=== PATIENT | male | born 1935 | race Caucasian/White ===

== ENCOUNTER 2024-03-11 16:58 | Inpatient (IN) ==
--- NOTE | 2024-03-11 18:13 | XRay Report ---
XR chest 1V portable CLINICAL HISTORY: Dyspnea COMPARISON STUDY: Chest radiograph November 13, 2007. FINDINGS: There is no pneumothorax or pleural effusion. There is slight asymmetric increased attenuat ion of the right lung. Left basilar interstitial thickening is present. Cardiomediastinal silhouette is unremarkable. No definite evidence for pulmonary edema. IMPRESSION: Slight asymmetric increased attenuation of the right lung. This may reflect pneumonia, a rtifact or asymmetric pulmonary. A layering pleural effusion could appear similar but is considered l ess likely. Radiographic follow-up to ensure resolution is recommended. ACT 112: Negative or not required by law. Electronically signed by: Andrea Green M.D. 03/11/2024 6:12 PM
[2024-03-11] MEDS: ACETAMINOPHEN 500 MG TAB PO STA (18:22)
[2024-03-11 18:35] LABS: Basophils # (auto) 0.05 K/uL (0.00-0.20); Basophils % (auto) 0.3 %; Eosinophils # (auto) 0.23 K/uL (0.00-0.50); Eosinophils % (auto) 1.3 %; Hematocrit (blood only) 31.1 % (42.0-52.0); Hemoglobin 10.9 g/dl (14.0-18.0); Immature Granulocytes % (auto) 0.6 %; Lymphocytes # (auto) 1.03 K/uL (1.20-3.40); Mean Corpuscular Hemoglobin 33.6 pg (25.0-34.0); Mean Platelet Volume 9.8 fL (9.4-12.4); Monocytes # (auto) 0.92 K/uL (0.11-0.59); Monocytes % (auto) 5.3 %; Neutrophils % (auto) 86.5 %; Platelet Count 202 K/uL (130-400); RDW Coefficient of Variation 13.3 % (11.5-14.5); RDW Standard Deviation 47.3 fL (36.4-46.3); Red Blood Count 3.24 M/uL (4.70-6.10); White Blood Count 17.23 K/ul (4.8-10.8)
[2024-03-11 18:52] LABS: Alanine Aminotransferase 20 U/L (7-52); Albumin Level 3.8 gm/dl (3.4-5.0); Alkaline Phosphatase 61 U/L (34-104); Anion Gap 12 (3-11); Aspartate Aminotransferase 51 U/L (13-39); BUN Creatinine Ratio 19.2 (10-20); Bilirubin,Total 0.7 mg/dl (0.2-1.0); Blood Urea Nitrogen 35 mg/dl (6-23); Calcium 8.3 mg/dl (8.6-10.3); Carbon Dioxide 18 mmol/L (21-32); Chloride 100 mmol/L (98-107); Est GFR (African American) 37.9 ml/min; Est GFR (Non-African American) 32.7 ml/min; Globulin 3.7 gm/dl (2.5-4.0); Glucose 141 mg/dl (70-99(Fasting)); Potassium 4.5 mmol/L (3.5-5.1); Sodium 130 mmol/L (136-145); Total Protein 7.5 gm/dl (6.0-8.3)
[2024-03-11 18:58] LABS: Troponin I High Sensitivity 30.5 pg/ml (0-20)
[2024-03-11 19:27] LABS: Adenovirus PCR Not Detected (NotDetected); Bordetella parapertussis PCR Not Detected (NotDetected); Bordetella pertussis PCR Not Detected (NotDetected); Chlamydia pneumoniae PCR Not Detected (NotDetected); Coronavirus 229E PCR Not Detected (NotDetected); Coronavirus CoV-2 (COVID19)PCR Not Detected (NotDetected); Coronavirus HKU1 PCR Not Detected (NotDetected); Coronavirus NL63 PCR Not Detected (NotDetected); Coronavirus OC43PCR Not Detected (NotDetected); Human Metapneumovirus PCR Not Detected (NotDetected); Influenza A PCR Not Detected (NotDetected); Influenza B PCR Not Detected (NotDetected); Mycoplasma pneumoniae PCR Not Detected (NotDetected); Parainfluenza Virus 1 PCR Not Detected (NotDetected); Parainfluenza Virus 2 PCR Not Detected (NotDetected); Parainfluenza Virus 3 PCR Not Detected (NotDetected); Parainfluenza Virus 4 PCR Not Detected (NotDetected); Respiratory Syncytial VirusPCR Not Detected (NotDetected); Rhinovirus/Enterovirus PCR Not Detected (NotDetected)
[2024-03-11] MEDS: cefTRIAXone SODIUM 2,000 MG/50 ML BAG IV STA (20:51)
[2024-03-11] MEDS: SODIUM CHLORIDE 0.9% 500 ML IV SCH (20:52)
--- NOTE | 2024-03-11 21:47 | Emergency Department Note ---
Impression & Plan Pneumonia, Hypoxia, LASHON (acute kidney injury), Leukocytosis, Elevated troponin ED Provider Note NAME: HENNA DON Jr AGE: 88 SEX: M : 1935 ARRIVES VIA: Walk-In INFORMANT: Patient ED PROVIDER(S): Howard Randolph MD CHIEF COMPLAINT: Shortness of breath, cough, weakness. PLAN: Disposition: Admit MEDICAL DECISION MAKING: The patient is a pleasant 88-year-old gentleman with a past medical history of GERD, hypertension who presents to the emergency department via walk-in accompanied by his son who happened to be visiting for the March 12 hol for evaluation of ongoing illness for the past 2 weeks with cough congestion worsening today with generalized malaise and feverishness/shaking tonight prior to arrival. Patient reports he had cough and congestion began 2 weeks ago and was seen at urgent care where he was treated with a course of steroids which he completed. However, after having no improvement he returned to urgent care and was given an Advair inhaler. He denies being treated with antibiotics. He denies feeling feverishness until today. He reports he has had diarrhea over the past couple of days. He denies any urinary symptoms. He reports shortness of breath with minimal exertion but denies chest pain or abdominal pain. He is not on oxygen at home. Of note, the patient did arrive to emergency department during time of high volume, acuity and prolonged emergency department waiting times. Critical pathways initiated from triage. On my evaluation the patient is fatigued appearing but no distress, febrile to 38.0 with blood pressure 150s/60s with O2 saturation 88% on room air improving to low-mid 90s on 2 L nasal cannula. He appears clinically dry. He has wheezing rhonchi bilateral lower lung goldberg with normal respiratory effort. EKG without overt acute ischemia. CXR demonstrates asymmetric increased attenuation of the right lung with left basilar interstitial thickening. No definite pulmonary edema is seen. Findings are suspicious for pneumonia given the clinical context. WBC 17.2 K with neutrophilia but no left shift, nonspecific and may reflect component of active pneumonia but also recent steroid course. H/H 10.8/31.1 without recent for comparison. Platelets within normal limits. Chemistry demonstrates mild metabolic acidosis bicarbonate 18 anion gap of 12. Lactic acid is 1.5, within normal limits. Creatinine is 1.8 with BUN of 35 without prior for comparison however patient denies history of CKD. AST is mildly elevated at 51, nonspecific. LFTs otherwise normal. Initial high-sensitivity troponin 30.5 with delta 2-hour high-sensitivity troponin 34, essentially unchanged. Procalcitonin is elevated at 10.4 consistent with suspicion for bacterial infection/pneumonia. UA without convincing evidence of infection. Respiratory BioFire was negative. Blood culture was obtained and empiric treatment initiated for CAP with ceftriaxone and doxycycline. Additional treatment provided with DuoNeb, guaifenesin and flutter valve ordered. IV fluid hydration provided with caution with 500 cc administered initially and subsequent 1 L maintenance fluids ordered, given acute kidney injury and so 30 cc/kg was deferred. Given patient's hypoxia, leukocytosis and acute kidney injury patient and family bedside agree with plan for admission. Given patient denies chest pain and no significant tachycardia, though may be blunted from home propranolol, suspect PE is less likely at this time. [facility] will [facility] the patient for admission. Further management per admitting team. Triage Nursing notes reviewed and agree them. Prior/external medical records reviewed Vital Signs: reviewed Differential diagnosis: Reactive airway disease, pneumonia, pneumothorax, COPD, CHF, infections, cardiac ischemia, pulmonary embolism, musculoskeletal, gastrointestinal, as well as other pathologies. ER treatment provided: See below. Diagnostics interpreted by me: ECG: Normal sinus rhythm, 84 bpm, no ectopy, no overt ST elevation or depression, QTc 432, QRS 82. Cardiac Monitoring: An order for continuous cardiac monitoring was placed and demonstrated Normal sinus rhythm, 84 bpm, no ectopy. Laboratory studies: See below Imaging studies: See below Consultation(s): [facility] who will evaluate the patient for admission. HPI: The patient is a pleasant 88-year-old gentleman with a past medical history of GERD, hypertension who presents to the emergency department via walk-in accompanied by his son who happened to be visiting for the March 12 hol weekend for evaluation of ongoing illness for the past 2 weeks with cough congestion worsening today with generalized malaise and feverishness/shaking tonight prior to arrival. Patient reports he had cough and congestion began 2 weeks ago and was seen at urgent care where he was treated with a course of steroids which he completed. However, after having no improvement he returned to urgent care and was given an Advair inhaler. He denies being treated with antibiotics. He denies feeling feverishness until today. He reports he has had diarrhea over the past couple of days. He denies any urinary symptoms. He reports shortness of breath with minimal exertion but denies chest pain or abdominal pain. He is not on oxygen at home. ROS: See above HPI for pertinent positives & negatives. A total of 10 systems reviewed and were otherwise negative. VITALS:See Below PHYSICAL EXAMINATION: GENERAL: Awake, alert, fatigued-appearing, in no distress HENT: Normocephalic, atraumatic. Oropharynx with dry mucous membranes and otherwise unremarkable. EYES: Normal conjunctiva. Sclera non-icteric. NECK: Supple. No nuchal rigidity. FROM. No JVD. RESPIRATORY: Wheezes and rhonchi bilateral lung goldberg with normal respiratory effort CARDIAC: Regular rate, normal rhythm. Extremities warm and well perfused. Pulses equal. ABDOMEN: Soft, non-distended. No tenderness to palpation. No rebound or guarding. No masses. MUSCULOSKELETAL: Chest examination reveals no tenderness. The back is symmetrical on inspection without obvious abnormality. There is no CVA tenderness to palpation. No joint edema. LOWER EXTREMITIES: Calves are equal size bilaterally and non-tender. No edema. No discoloration. NEURO: No focal sensory or motor deficits noted. SKIN: No rash or jaundice noted. Howard Randolph MD Past Med/Surg History Problem List (Updated 03/12/24 @ 01:00 by Howard Randolph MD) Elevated troponin (Acute) Leukocytosis (Acute) LASHON (acute kidney injury) (Acute) Hypoxia (Acute) Pneumonia (Acute) Social History Smoking Status: Never smoker Preferred Language: Scottish Feels Safe at Home: Yes Allergies Allergies Allergy/AdvReac Type Severity Reaction Status Date / Time No Known Allergies Allergy Unknown Verified 03/11/24 21:46 Home Meds Home Medications Medication Instructions Recorded Confirmed acetaminophen 500 mg tablet 1,000 mg PO DIRECTED PRN Pain 03/11/24 03/11/24 (Tylenol Extra Strength) fluticasone 113 mcg-salmeterol 14 1 inh inhalation BID 03/11/24 03/11/24 mcg/actuation breath activated powdr losartan 25 mg tablet 25 mg PO DAILY 03/11/24 03/11/24 omeprazole 20 mg capsule,delayed 20 mg PO DAILY 03/11/24 03/11/24 release propranolol 80 mg capsule,24 80 mg PO DAILY 03/11/24 03/11/24 hr,extended release Results & Data (ED) Vital Signs Vital Signs - 24 hr 03/11/24 17:29 03/11/24 18:15 03/11/24 19:50 Temperature 38 C H Temperature Source Oral Pulse Rate 86 59 L Pulse Rate [Right Radial] Respiratory Rate 22 Respiratory Effort / Characteristics Non-Labored Respiratory Depth Normal Respiratory Pattern Blood Pressure 155/67 H Blood Pressure [Left Arm] Blood Pressure Mean 96 Blood Pressure Mean [Left Arm] Blood Pressure Position [Left Arm] Pulse Oximetry 88 L 96 Oxygen Delivery Method Room Air Nasal Cannula Oxygen Flow Rate 2 Sepsis Recent Fever Within 48 Hours Yes Sepsis New/Unexplained Change in Mental Status No Sepsis Action Taken by Nursing No Action Required 03/11/24 20:11 03/11/24 20:57 03/11/24 21:10 Temperature 37.1 C Temperature Source Oral Pulse Rate Pulse Rate [Right Radial] 61 Respiratory Rate 20 20 Respiratory Effort / Characteristics Non-Labored Respiratory Depth Normal Normal Respiratory Pattern Regular Blood Pressure Blood Pressure [Left Arm] 135/66 Blood Pressure Mean Blood Pressure Mean [Left Arm] 89 Blood Pressure Position [Left Arm] Sitting Pulse Oximetry 94 94 Oxygen Delivery Method Nasal Cannula Room Air Oxygen Flow Rate 2 Sepsis Recent Fever Within 48 Hours Sepsis New/Unexplained Change in Mental Status Sepsis Action Taken by Nursing 03/11/24 21:20 03/11/24 21:28 03/11/24 23:41 Temperature Temperature Source Pulse Rate 52 L Pulse Rate [Right Radial] Respiratory Rate Respiratory Effort / Characteristics Respiratory Depth Respiratory Pattern Blood Pressure Blood Pressure [Left Arm] Blood Pressure Mean Blood Pressure Mean [Left Arm] Blood Pressure Position [Left Arm] Pulse Oximetry 88 L 96 Oxygen Delivery Method Room Air Nasal Cannula Oxygen Flow Rate 2 Sepsis Recent Fever Within 48 Hours Sepsis New/Unexplained Change in Mental Status Sepsis Action Taken by Nursing Laboratory Data Attestation: I reviewed the patient's lab results. 03/11/24 18:10 03/11/24 23:20 Lab Results 03/11/24 03/11/24 03/11/24 Range/Units 18:10 18:30 19:54 WBC 17.23 H (4.8-10.8) K/ul RBC 3.24 L (4.70-6.10) M/uL Hgb 10.9 L (14.0-18.0) g/dl Hct 31.1 L (42.0-52.0) % MCV 96.0 (80.0-100.0) fL MCH 33.6 (25.0-34.0) pg MCHC 35.0 (32.0-36.0) g/dL RDW Std Deviation 47.3 H (36.4-46.3) fL RDW Coeff of Karl 13.3 (11.5-14.5) % Plt Count 202 (130-400) K/uL MPV 9.8 (9.4-12.4) fL Immature Gran % (Auto) 0.6 % Neut % (Auto) 86.5 % Lymph % (Auto) 6.0 % [place] % (Auto) 5.3 % Eos % (Auto) 1.3 % Baso % (Auto) 0.3 % Reticulocyte % (Auto) 1.16 (0.50-2.00) % Neut # (Auto) 14.90 H (1.40-6.50) K/uL Lymph # (Auto) 1.03 L (1.20-3.40) K/uL [place] # (Auto) 0.92 H (0.11-0.59) K/uL Eos # (Auto) 0.23 (0.00-0.50) K/uL Baso # (Auto) 0.05 (0.00-0.20) K/uL Reticulocyte # 0.040 (0.020-0.100) 10^6/uL Immature Gran # (Auto) 0.10 (0.01-0.20) K/uL APTT (21-31) Seconds PTT Ratio VBG pH (7.36-7.41) VBG pCO2 (38-50) mmHg VBG pO2 mmHg VBG HCO3 mmol/L VBG O2 Saturation % VBG Base Excess mEq/L Sodium 130 L (136-145) mmol/L Potassium 4.5 (3.5-5.1) mmol/L Chloride 100 (98-107) mmol/L Carbon Dioxide 18 L (21-32) mmol/L Anion Gap 12 H (3-11) BUN 35 H (6-23) mg/dl Creatinine 1.82 H (0.6-1.4) mg/dl Est Cr Clr Drug Dosing Not Reportable Est GFR ( Amer) 37.9 ml/min Est GFR (Non-Af Amer) 32.7 ml/min BUN/Creatinine Ratio 19.2 (10-20) Glucose 141 H (70-99(Fasting)) mg/dl Osmolality (280-300) mOsm/kg Lactate 1.5 (0.4-2.0) mmol/L Calcium 8.3 L (8.6-10.3) mg/dl Magnesium (1.7-2.4) mg/dl Iron (35-175) mcg/dl Transferrin (200-360) mg/dl Ferritin (8-388) ng/ml Total Bilirubin 0.7 (0.2-1.0) mg/dl AST 51 H (13-39) U/L ALT 20 (7-52) U/L Alkaline Phosphatase 61 (34-104) U/L Troponin I High Sens 30.5 H (0-20) pg/ml Total Protein 7.5 (6.0-8.3) gm/dl Albumin 3.8 (3.4-5.0) gm/dl Globulin 3.7 (2.5-4.0) gm/dl Albumin/Globulin Ratio 1.0 (0.9-2) Vitamin B12 (180-914) pg/ml Folate (>5.38) ng/ml Procalcitonin 10.40 H (0-0.5) ng/ml TSH (0.300-4.500) uIu/ml Urine Color Urine Appearance (Clear) Urine pH (4.5-7.5) Ur Specific [place] (1.000-1.030) Urine Protein (Negative) Urine Glucose (UA) (Negative) Urine Ketones (Negative) Urine Blood (Negative) Urine Nitrite (Negative) Urine Bilirubin (Negative) Urine Urobilinogen (Negative) Ur Leukocyte Esterase (Negative) Urine WBC (Auto) (0-5) /hpf Urine RBC (Auto) (0-2) /hpf U Hyaline Cast (Auto) (0-2) /lpf U Epithel Cells (Auto) (0-2) /hpf Urine Bacteria (Auto) (None Seen) Adenovirus (PCR) Not Detected (NotDetected) B. pertussis DNA (PCR) Not Detected (NotDetected) B.parapertussis DNA PCR Not Detected (NotDetected) C. pneumoniae DNA (PCR) Not Detected (NotDetected) Coronavirus OC43 (PCR) Not Detected (NotDetected) Coronavirus HKU1 (PCR) Not Detected (NotDetected) Coronavirus 229E (PCR) Not Detected (NotDetected) SARS-CoV-2 (PCR) Not Detected (NotDetected) Coronavirus NL63 (PCR) Not Detected (NotDetected) Human Metapneumovir PCR Not Detected (NotDetected) Influenza Type A (PCR) Not Detected (NotDetected) Influenza Type B (PCR) Not Detected (NotDetected) M. pneumoniae (PCR) Not Detected (NotDetected) Parainfluenza 1 (PCR) Not Detected (NotDetected) Parainfluenza 2 (PCR) Not Detected (NotDetected) Parainfluenza 3 (PCR) Not Detected (NotDetected) Parainfluenza 4 (PCR) Not Detected (NotDetected) RSV (PCR) Not Detected (NotDetected) Entero/Rhino (PCR) Not Detected (NotDetected) 03/11/24 03/11/24 03/11/24 Range/Units 20:07 23:20 Unknown WBC (4.8-10.8) K/ul RBC (4.70-6.10) M/uL Hgb (14.0-18.0) g/dl Hct (42.0-52.0) % MCV (80.0-100.0) fL MCH (25.0-34.0) pg MCHC (32.0-36.0) g/dL RDW Std Deviation (36.4-46.3) fL RDW Coeff of Karl (11.5-14.5) % Plt Count (130-400) K/uL MPV (9.4-12.4) fL Immature Gran % (Auto) % Neut % (Auto) % Lymph % (Auto) % [place] % (Auto) % Eos % (Auto) % Baso % (Auto) % Reticulocyte % (Auto) (0.50-2.00) % Neut # (Auto) (1.40-6.50) K/uL Lymph # (Auto) (1.20-3.40) K/uL [place] # (Auto) (0.11-0.59) K/uL Eos # (Auto) (0.00-0.50) K/uL Baso # (Auto) (0.00-0.20) K/uL Reticulocyte # (0.020-0.100) 10^6/uL Immature Gran # (Auto) (0.01-0.20) K/uL APTT 29 (21-31) Seconds PTT Ratio 1.1 VBG pH 7.41 (7.36-7.41) VBG pCO2 29 L (38-50) mmHg VBG pO2 52 mmHg VBG HCO3 18 mmol/L VBG O2 Saturation 86.4 % VBG Base Excess -5.0 mEq/L Sodium 131 L (136-145) mmol/L Potassium 4.1 (3.5-5.1) mmol/L Chloride 102 (98-107) mmol/L Carbon Dioxide 19 L (21-32) mmol/L Anion Gap 10 (3-11) BUN 35 H (6-23) mg/dl Creatinine 1.84 H (0.6-1.4) mg/dl Est Cr Clr Drug Dosing Not Reportable Est GFR ( Amer) 37.4 ml/min Est GFR (Non-Af Amer) 32.2 ml/min BUN/Creatinine Ratio 19.0 (10-20) Glucose 133 H (70-99(Fasting)) mg/dl Osmolality 280 (280-300) mOsm/kg Lactate (0.4-2.0) mmol/L Calcium 8.1 L (8.6-10.3) mg/dl Magnesium 2.0 (1.7-2.4) mg/dl Iron 19 L (35-175) mcg/dl Transferrin 150 L (200-360) mg/dl Ferritin 1108.2 H (8-388) ng/ml Total Bilirubin (0.2-1.0) mg/dl AST (13-39) U/L ALT (7-52) U/L Alkaline Phosphatase (34-104) U/L Troponin I High Sens 34.0 H 26.9 H (0-20) pg/ml Total Protein (6.0-8.3) gm/dl Albumin (3.4-5.0) gm/dl Globulin (2.5-4.0) gm/dl Albumin/Globulin Ratio (0.9-2) Vitamin B12 318 (180-914) pg/ml Folate 11.56 (>5.38) ng/ml Procalcitonin (0-0.5) ng/ml TSH 1.719 (0.300-4.500) uIu/ml Urine Color Yellow Urine Appearance Cloudy A (Clear) Urine pH 6.0 (4.5-7.5) Ur Specific [place] 1.011 (1.000-1.030) Urine Protein 1+ H (Negative) Urine Glucose (UA) Negative (Negative) Urine Ketones Negative (Negative) Urine Blood Trace H (Negative) Urine Nitrite Negative (Negative) Urine Bilirubin Negative (Negative) Urine Urobilinogen Negative (Negative) Ur Leukocyte Esterase Negative (Negative) Urine WBC (Auto) 0-5 (0-5) /hpf Urine RBC (Auto) 0-2 (0-2) /hpf U Hyaline Cast (Auto) 0-2 (0-2) /lpf U Epithel Cells (Auto) 0-2 (0-2) /hpf Urine Bacteria (Auto) None Seen (None Seen) Adenovirus (PCR) (NotDetected) B. pertussis DNA (PCR) (NotDetected) B.parapertussis DNA PCR (NotDetected) C. pneumoniae DNA (PCR) (NotDetected) Coronavirus OC43 (PCR) (NotDetected) Coronavirus HKU1 (PCR) (NotDetected) Coronavirus 229E (PCR) (NotDetected) SARS-CoV-2 (PCR) (NotDetected) Coronavirus NL63 (PCR) (NotDetected) Human Metapneumovir PCR (NotDetected) Influenza Type A (PCR) (NotDetected) Influenza Type B (PCR) (NotDetected) M. pneumoniae (PCR) (NotDetected) Parainfluenza 1 (PCR) (NotDetected) Parainfluenza 2 (PCR) (NotDetected) Parainfluenza 3 (PCR) (NotDetected) Parainfluenza 4 (PCR) (NotDetected) RSV (PCR) (NotDetected) Entero/Rhino (PCR) (NotDetected) Administered Medications Discontinued Medications Acetaminophen (Acetaminophen 500 Mg Tab) 1,000 mg PO NOW STA Stop: 03/11/24 17:35 Last Admin: 03/11/24 18:22 Dose: 1,000 mg Documented By: EUFEMIA Albuterol (Albut/Ipratrop 3mg/0.5mg Neb 3 Ml Vial) 3 ml NEB NOW STA; Protocol Stop: 03/11/24 21:41 Last Admin: 03/11/24 22:33 Dose: 3 ml Documented By: ISMAEL Guaifenesin (Guaifenesin 600 Mg Tabcr) 600 mg PO NOW STA Stop: 03/11/24 21:41 Last Admin: 03/11/24 22:33 Dose: 600 mg Documented By: ISMAEL Ceftriaxone Sodium (Rocephin) 2,000 mg in 50 mls @ 100 mls/hr IV NOW STA Stop: 03/11/24 19:43 Last Infusion: 03/11/24 21:29 Dose: Infused Documented By: Admin: 03/11/24 20:51 Dose: 100 mls/hr Documented By: Sodium Chloride (Nss) 500 mls @ 125 mls/hr IV .Q4H ERVIN Stop: 04/10/24 19:29 Last Admin: 03/11/24 20:52 Dose: 125 mls/hr Documented By: Doxycycline Hyclate 100 mg/ (Dextrose) 100 mls @ 50 mls/hr IV NOW STA Stop: 03/11/24 23:39 Last Infusion: 03/12/24 00:31 Dose: Infused Documented By: Admin: 03/11/24 22:34 Dose: 50 mls/hr Documented By: ISMAEL Sodium Chloride (Nss) 1,000 mls @ 125 mls/hr IV .Q8H ERVIN Stop: 04/10/24 21:44 Last Admin: 03/12/24 00:17 Dose: Not Given Documented By: Imaging Data Radiologist's Impression: Chest X-Ray 03/11/24 17:33 XR chest 1V portable CLINICAL HISTORY: Dyspnea COMPARISON STUDY: Chest radiograph November 13, 2007. FINDINGS: There is no pneumothorax or pleural effusion. There is slight asymmetric increased attenuation of the right lung. Left basilar interstitial thickening is present. Cardiomediastinal silhouette is unremarkable. No definite evidence for pulmonary edema. IMPRESSION: Slight asymmetric increased attenuation of the right lung. This may reflect pneumonia, artifact or asymmetric pulmonary. A layering pleural effusion could appear similar but is considered less likely. Radiographic follow-up to ensure resolution is recommended. ACT 112: Negative or not required by law. Electronically signed by: Andrea Green M.D. 03/11/2024 6:12 PM Discharge Plan Visit Data Chief Complaint: Flu Like Symptoms Stated Complaint: COUGH, WEAKNESS ED Provider: Howard Randolph Discharge Problem: Pneumonia, Hypoxia, LASHON (acute kidney injury), Leukocytosis, Elevated troponin Forms Stand Alone Forms: [facility] Prescriptions Prescriptions: No Action acetaminophen [Tylenol Extra Strength] 500 mg Tablet 1,000 mg PO DIRECTED PRN (Reason: Pain) propranolol 80 mg capsule,extended release 24hr 80 mg PO DAILY losartan 25 mg tablet 25 mg PO DAILY omeprazole 20 mg capsule,delayed release(DR/EC) 20 mg PO DAILY fluticasone propion-salmeterol 113-14 mcg/actuation aerosol powdr breath activated 1 inh INHALATION BID Referrals Referrals: Amita De Luna MD [Primary Care Provider] - Discharge Problem: Pneumonia Qualifiers: Pneumonia type: due to unspecified organism Laterality: bilateral Lung location: unspecified part of lung Qualified Code(s): J18.9 - Pneumonia, unspecified organism Leukocytosis Qualifiers: Leukocytosis type: unspecified Qualified Code(s): D72.829 - Elevated white blood cell count, unspecified
[2024-03-11 22:14] LABS: Reticulocyte % 1.16 % (0.50-2.00)
[2024-03-11 22:30] LABS: Appearance Urine Cloudy (Clear); Bacteria Urine Automated None Seen (None Seen); Bilirubin Urine Negative (Negative); Blood Urine Trace (Negative); Cast Urine Automated 0-2 /lpf (0-2); Color Urine Yellow; Epithelial Cell Urine Auto 0-2 /hpf (0-2); Glucose Urine UA Negative (Negative); Ketones Urine Negative (Negative); Leukocyte Esterase Urine Negative (Negative); Nitrite Urine Negative (Negative); Protein Urine 1+ (Negative); RBC Urine Automated 0-2 /hpf (0-2); Specific Gravity Urine 1.011 (1.000-1.030); Urobilinogen Urine Negative (Negative); WBC Urine Automated 0-5 /hpf (0-5)
[2024-03-11] MEDS: ALBUT/IPRATROP 3MG/0.5MG NEB 3 ML VIAL NEB STA (22:33)
[2024-03-11] MEDS: guaiFENesin 600 MG TABCR PO STA (22:33)
[2024-03-11] MEDS: DOXYCYCLINE HYCLATE 100 MG in DEXTROSE 5% MINI-B 100 ML IV STA (22:34)
--- NOTE | 2024-03-11 23:11 | History & Physical Report ---
Date of Service March 11, 2024 Assessment & Plan (1) Severe sepsis: Plan: SIRS plus hypoxemic respiratory failure secondary to bronchopneumonia, possible aspiration Troponin elevation secondary to above hypertension, stable CRI, creatinine at baseline Acute on chronic anemia, no overt bleed, FOBT done at there was negative prediabetes, hemoglobin A1c of 5.7 last January 2024 Medical telemetry CS, Unasyn, doxycycline Nebs RTC Pulmonary consult if without improvement Aspiration precautions, BOOT AND SADDLE REPAIR PERSON eval Anemia workup, transfuse PRBC if hemoglobin less than 7 and or from symptomatic anemia PT OT eval DVT prophylaxis. Heparin subcu Full code Patient son requesting updates providers. Mr. Damaso Brown, contact #[phone]. Text document was generated using [employer] voice recognition software. It may contain grammatical or spelling errors. Kindly contact undersigned for clarification of any documentation item in question. History of Present Illness Chief Complaint: Persistent cough, worsening SOB Primary Care Provider: Amita De Luna MD History obtained from patient, family, and records. Medical history significant for hypertension, CRI (baseline creatinine 1.8), chronic anemia (baseline hemoglobin of 12), prediabetes, BPH, skin cancer as per records. 2 weeks ago, patient noted cough symptoms productive of white sputum worse on lying down. Denies choking symptoms. Not sure about sick contacts. No chest pain. 2 urgent care visits in the last 2 weeks. No pneumonia on x-ray as per patient. Outpatient COVID-19 test was negative. Patient prescribed prednisone course and inhaler on 2 separate occasions. Worsening symptoms despite compliance with new medications. No fluid retention. Denies abdominal pain, black/bloody stools, hematuria. Patient brought to ER by son visiting from [place] for evaluation. O2 sats 80s upon arrival at the ER. Ceftriaxone and doxycycline administered at the ER. 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 Allergies Allergy/AdvReac Type Severity Reaction Status Date / Time No Known Allergies Allergy Unknown Verified 03/11/24 21:46 Home Medications Medication Instructions Recorded Confirmed Type acetaminophen 500 mg tablet 1,000 mg PO DIRECTED PRN Pain 03/11/24 03/11/24 History (Tylenol Extra Strength) fluticasone 113 mcg-salmeterol 14 1 inh inhalation BID 03/11/24 03/11/24 History mcg/actuation breath activated powdr losartan 25 mg tablet 25 mg PO DAILY 03/11/24 03/11/24 History omeprazole 20 mg capsule,delayed 20 mg PO DAILY 03/11/24 03/11/24 History release propranolol 80 mg capsule,24 80 mg PO DAILY 03/11/24 03/11/24 History hr,extended release Past Med/Surg History Problem List (Updated 03/12/24 @ 10:27 by Corona Gonzalez MD) Severe sepsis Elevated troponin (Acute) Leukocytosis (Acute) LASHON (acute kidney injury) (Acute) Hypoxia (Acute) Pneumonia (Acute) Social History Smoking Status: Never smoker Hx Alcohol Use: No Hx Substance Use: No Preferred Language: Andorran Communication Ability: Effective Ship Engineer Required: No Beliefs That Will Affect Care: None Current Living Situation: Alone Current Living Situation Comment: lives with at home Other Information That Helps Us Care for You: No Feels Safe at Home: Yes Safety Concerns: Feels Safe At This Time Assistive Devices: Glasses Assistive Devices Comment: utilizing cane during this hospital visit d/t weakness; baseline is no aid Review of Systems Review of Systems: As per HPI, all other systems reviewed and negative Physical Exam Physical Exam: GENERAL: Comfortable, pleasant, slightly hard of hearing, no respiratory distress SKIN: Pallor, warm HEENT: Alopecia, pale palpebral conjunctivae, no ptosis, dry buccal mucosa, nasal cannula in place NECK : Supple, no tenderness CHEST : Decreased breath sounds, no tenderness HEART : RRR, no obvious murmurs ABDOMEN: Some distention, nontender RECTAL : Intact sphincter, brown stool (FOBT negative) EXTREMITIES : No LE swelling/tenderness, no other conspicuous deformities noted NEUROLOGIC : Coherent, no facial asymmetry, slightly hard of hearing, no other gross focality Results & Data Results & Data Vital Signs (Past 12 Hours) Vital Signs Temp Pulse Pulse Resp BP BP Pulse Ox 03/11/24 21:28 96 03/11/24 21:20 88 L 03/11/24 21:10 20 94 03/11/24 20:57 37.1 C 03/11/24 20:11 61 20 135/66 94 03/11/24 19:50 59 L 03/11/24 18:15 96 03/11/24 17:29 38 C H 86 22 155/67 H 88 L O2 Del Method O2 Flow Rate 03/11/24 21:28 Nasal Cannula 2 03/11/24 21:20 Room Air 03/11/24 21:10 Room Air 03/11/24 20:57 03/11/24 20:11 Nasal Cannula 2 03/11/24 19:50 03/11/24 18:15 Nasal Cannula 2 03/11/24 17:29 Room Air Laboratory Results Laboratory Results WBC 17.23 K/ul (4.8-10.8) H 03/11/24 18:10 RBC 3.24 M/uL (4.70-6.10) L 03/11/24 18:10 Hgb 10.9 g/dl (14.0-18.0) L 03/11/24 18:10 Hct 31.1 % (42.0-52.0) L 03/11/24 18:10 MCV 96.0 fL (80.0-100.0) 03/11/24 18:10 MCH 33.6 pg (25.0-34.0) 03/11/24 18:10 MCHC 35.0 g/dL (32.0-36.0) 03/11/24 18:10 RDW Std Deviation 47.3 fL (36.4-46.3) H 03/11/24 18:10 RDW Coeff of Karl 13.3 % (11.5-14.5) 03/11/24 18:10 Plt Count 202 K/uL (130-400) 03/11/24 18:10 MPV 9.8 fL (9.4-12.4) 03/11/24 18:10 Immature Gran % (Auto) 0.6 % 03/11/24 18:10 Neut % (Auto) 86.5 % 03/11/24 18:10 Lymph % (Auto) 6.0 % 03/11/24 18:10 [place] % (Auto) 5.3 % 03/11/24 18:10 Eos % (Auto) 1.3 % 03/11/24 18:10 Baso % (Auto) 0.3 % 03/11/24 18:10 Reticulocyte % (Auto) 1.16 % (0.50-2.00) 03/11/24 18:10 Neut # (Auto) 14.90 K/uL (1.40-6.50) H 03/11/24 18:10 Lymph # (Auto) 1.03 K/uL (1.20-3.40) L 03/11/24 18:10 [place] # (Auto) 0.92 K/uL (0.11-0.59) H 03/11/24 18:10 Eos # (Auto) 0.23 K/uL (0.00-0.50) 03/11/24 18:10 Baso # (Auto) 0.05 K/uL (0.00-0.20) 03/11/24 18:10 Reticulocyte # 0.040 10^6/uL (0.020-0.100) 03/11/24 18:10 Immature Gran # (Auto) 0.10 K/uL (0.01-0.20) 03/11/24 18:10 Sodium 130 mmol/L (136-145) L 03/11/24 18:10 Potassium 4.5 mmol/L (3.5-5.1) 03/11/24 18:10 Chloride 100 mmol/L (98-107) 03/11/24 18:10 Carbon Dioxide 18 mmol/L (21-32) L 03/11/24 18:10 Anion Gap 12 (3-11) H 03/11/24 18:10 BUN 35 mg/dl (6-23) H 03/11/24 18:10 Creatinine 1.82 mg/dl (0.6-1.4) H 03/11/24 18:10 Est Cr Clr Drug Dosing Not Reportable 03/11/24 18:10 Est GFR ( Amer) 37.9 ml/min 03/11/24 18:10 Est GFR (Non-Af Amer) 32.7 ml/min 03/11/24 18:10 BUN/Creatinine Ratio 19.2 (10-20) 03/11/24 18:10 Glucose 141 mg/dl (70-99(Fasting)) H 03/11/24 18:10 Lactate 1.5 mmol/L (0.4-2.0) 03/11/24 19:54 Calcium 8.3 mg/dl (8.6-10.3) L 03/11/24 18:10 Total Bilirubin 0.7 mg/dl (0.2-1.0) 03/11/24 18:10 AST 51 U/L (13-39) H 03/11/24 18:10 ALT 20 U/L (7-52) 03/11/24 18:10 Alkaline Phosphatase 61 U/L (34-104) 03/11/24 18:10 Troponin I High Sens 34.0 pg/ml (0-20) H 03/11/24 20:07 Total Protein 7.5 gm/dl (6.0-8.3) 03/11/24 18:10 Albumin 3.8 gm/dl (3.4-5.0) 03/11/24 18:10 Globulin 3.7 gm/dl (2.5-4.0) 03/11/24 18:10 Albumin/Globulin Ratio 1.0 (0.9-2) 03/11/24 18:10 Procalcitonin 10.40 ng/ml (0-0.5) H 03/11/24 19:54 Urine Color Yellow 03/11/24 Unknown Urine Appearance Cloudy (Clear) A 03/11/24 Unknown Urine pH 6.0 (4.5-7.5) 03/11/24 Unknown Ur Specific [place] 1.011 (1.000-1.030) 03/11/24 Unknown Urine Protein 1+ (Negative) H 03/11/24 Unknown Urine Glucose (UA) Negative (Negative) 03/11/24 Unknown Urine Ketones Negative (Negative) 03/11/24 Unknown Urine Blood Trace (Negative) H 03/11/24 Unknown Urine Nitrite Negative (Negative) 03/11/24 Unknown Urine Bilirubin Negative (Negative) 03/11/24 Unknown Urine Urobilinogen Negative (Negative) 03/11/24 Unknown Ur Leukocyte Esterase Negative (Negative) 03/11/24 Unknown Urine WBC (Auto) 0-5 /hpf (0-5) 03/11/24 Unknown Urine RBC (Auto) 0-2 /hpf (0-2) 03/11/24 Unknown U Hyaline Cast (Auto) 0-2 /lpf (0-2) 03/11/24 Unknown U Epithel Cells (Auto) 0-2 /hpf (0-2) 03/11/24 Unknown Urine Bacteria (Auto) None Seen (None Seen) 03/11/24 Unknown Adenovirus (PCR) Not Detected (NotDetected) 03/11/24 18:30 B. pertussis DNA (PCR) Not Detected (NotDetected) 03/11/24 18:30 B.parapertussis DNA PCR Not Detected (NotDetected) 03/11/24 18:30 C. pneumoniae DNA (PCR) Not Detected (NotDetected) 03/11/24 18:30 Coronavirus OC43 (PCR) Not Detected (NotDetected) 03/11/24 18:30 Coronavirus HKU1 (PCR) Not Detected (NotDetected) 03/11/24 18:30 Coronavirus 229E (PCR) Not Detected (NotDetected) 03/11/24 18:30 SARS-CoV-2 (PCR) Not Detected (NotDetected) 03/11/24 18:30 Coronavirus NL63 (PCR) Not Detected (NotDetected) 03/11/24 18:30 Human Metapneumovir PCR Not Detected (NotDetected) 03/11/24 18:30 Influenza Type A (PCR) Not Detected (NotDetected) 03/11/24 18:30 Influenza Type B (PCR) Not Detected (NotDetected) 03/11/24 18:30 M. pneumoniae (PCR) Not Detected (NotDetected) 03/11/24 18:30 Parainfluenza 1 (PCR) Not Detected (NotDetected) 03/11/24 18:30 Parainfluenza 2 (PCR) Not Detected (NotDetected) 03/11/24 18:30 Parainfluenza 3 (PCR) Not Detected (NotDetected) 03/11/24 18:30 Parainfluenza 4 (PCR) Not Detected (NotDetected) 03/11/24 18:30 RSV (PCR) Not Detected (NotDetected) 03/11/24 18:30 Entero/Rhino (PCR) Not Detected (NotDetected) 03/11/24 18:30 Impressions Chest X-Ray 03/11/24 17:33 XR chest 1V portable CLINICAL HISTORY: Dyspnea COMPARISON STUDY: Chest radiograph November 13, 2007. FINDINGS: There is no pneumothorax or pleural effusion. There is slight asymmetric increased attenuation of the right lung. Left basilar interstitial thickening is present. Cardiomediastinal silhouette is unremarkable. No definite evidence for pulmonary edema. IMPRESSION: Slight asymmetric increased attenuation of the right lung. This may reflect pneumonia, artifact or asymmetric pulmonary. A layering pleural effusion could appear similar but is considered less likely. Radiographic follow-up to ensure resolution is recommended. ACT 112: Negative or not required by law. Electronically signed by: Andrea Green M.D. 03/11/2024 6:[address] chest: Bilateral ground-glass attenuation, consistent with infectious or inflammatory etiology. Diagnostic Findings EKG as per my interpretation : Rate 85, NSR, LAD, LAFB, no ischemia
[2024-03-11] MEDS ORDERED: PROMETHAZINE HCL 6.25 MG in SODIUM CHLORIDE 0.9% 50 ML IV PRN (23:16)
[2024-03-11 23:34] LABS: HCO3 VBG 18 mmol/L; Oxygen Saturation VBG 86.4 %; PCO2 VBG 29 mmHg (38-50); PO2 VBG 52 mmHg; pH VBG 7.41 (7.36-7.41)
[2024-03-11 23:54] LABS: Anion Gap 10 (3-11); Blood Urea Nitrogen 35 mg/dl (6-23); Calcium 8.1 mg/dl (8.6-10.3); Carbon Dioxide 19 mmol/L (21-32); Chloride 102 mmol/L (98-107); Est GFR (African American) 37.4 ml/min; Est GFR (Non-African American) 32.2 ml/min; Glucose 133 mg/dl (70-99(Fasting)); Iron 19 mcg/dl (35-175); Potassium 4.1 mmol/L (3.5-5.1); Sodium 131 mmol/L (136-145); Transferrin 150 mg/dl (200-360)
[2024-03-12] LABS: Troponin I High Sensitivity 26.9 pg/ml (0-20)
[2024-03-12 00:05] LABS: Partial Thromboplastin Ratio 1.1; Partial Thromboplastin Time 29 Seconds (21-31)
[2024-03-12 00:10] LABS: Thyroid Stimulating Hormone 1.719 uIu/ml (0.300-4.500)
[2024-03-12 00:15] LABS: Ferritin 1108.2 ng/ml (8-388)
[2024-03-12] MEDS: SODIUM CHLORIDE 0.9% 1,000 ML IV SCH (00:17)
[2024-03-12 00:20] LABS: Folate (Folic Acid),Ser orPlas 11.56 ng/ml (>5.38)
[2024-03-12] MEDS: AMPICILLIN/SULBACTAM SOD 3,000 MG in SODIUM CHLOR 0.9% MINI-B 100 ML IV STA (00:57)
[2024-03-12] MEDS: Patient's HEIGHT &/or WEIGHT Needed ONE (01:57)
[2024-03-12] MEDS: LACTATED RINGER'S 1,000 ML IV ONE (03:02)
--- NOTE | 2024-03-12 03:34 | CT Scan Report ---
Exam(s): CT CHEST Without Contrast EXAM: CT Chest Without Intravenous Contrast CLINICAL HISTORY: Reason for exam: sob, cough. TECHNIQUE: Axial computed tomography images of the chest without intravenous contrast. CTDI is 13.77 mGy and DLP is 442.69 mGy-cm. Automated exposure control was utilized for the study. A dose lowering technique was utilized adhering to the principles of ALARA. COMPARISON: No relevant prior studies available. FINDINGS: Lungs: Bilateral ground-glass attenuation, consistent with infectious or inflammatory etiology. Correlate clinically. No mass. No consolidation. Pleural space: Unremarkable. No pneumothorax. No significant effusion. Heart: Unremarkable. No cardiomegaly. No significant pericardial effusion. No significant coronary artery calcifications. Bones/joints: Degenerative changes of the spine. No acute fracture. No dislocation. Soft tissues: Unremarkable. Vasculature: Atherosclerotic changes of the aorta. No thoracic aortic aneurysm. Lymph nodes: Unremarkable. No enlarged lymph nodes. IMPRESSION: Bilateral ground-glass attenuation, consistent with infectious or inflammatory etiology. Correlate clinically. Electronically signed by: Ruiz Sinha MD 03/12/24 03:33 AM
[2024-03-12] MEDS: ALBUT/IPRATROP 3MG/0.5MG NEB 3 ML VIAL NEB SCH (06:24)
[2024-03-12] MEDS: AMPICILLIN/SULBACTAM SOD 3,000 MG in SODIUM CHLOR 0.9% MINI-B 100 ML IV SCH (06:24)
[2024-03-12] MEDS: HEPARIN SOD 5,000 UNIT/0.5 ML VIAL SQ SCH (06:29)
[2024-03-12 07:29] LABS: Basophils # (auto) 0.04 K/uL (0.00-0.20); Basophils % (auto) 0.3 %; Eosinophils # (auto) 0.14 K/uL (0.00-0.50); Eosinophils % (auto) 1.2 %; Hematocrit (blood only) 29.3 % (42.0-52.0); Hemoglobin 10.1 g/dl (14.0-18.0); Immature Granulocytes # (auto) 0.06 K/uL (0.01-0.20); Immature Granulocytes % (auto) 0.5 %; Mean Corpuscular Hemoglobin 33.4 pg (25.0-34.0); Mean Corpuscular Hgb Conc 34.5 g/dL (32.0-36.0); Mean Platelet Volume 10.1 fL (9.4-12.4); Monocytes # (auto) 0.55 K/uL (0.11-0.59); Monocytes % (auto) 4.8 %; Neutrophils # (auto) 9.22 K/uL (1.40-6.50); Neutrophils % (auto) 80.2 %; Platelet Count 176 K/uL (130-400); RDW Coefficient of Variation 13.8 % (11.5-14.5); RDW Standard Deviation 49.1 fL (36.4-46.3); Red Blood Count 3.02 M/uL (4.70-6.10); White Blood Count 11.51 K/ul (4.8-10.8)
[2024-03-12 07:31] LABS: BUN Creatinine Ratio 20.1 (10-20); Calcium 7.8 mg/dl (8.6-10.3); Creatinine Clr Calc Pharmacy 32.7 ml/min; Est GFR (African American) 44.6 ml/min; Est GFR (Non-African American) 38.5 ml/min
[2024-03-12] MEDS: PROPRANOLOL HCL LA 80 MG CAPCR PO SCH (08:07)
[2024-03-12] MEDS: DOXYCYCLINE HYCLATE 100 MG CAP PO SCH (08:07)
[2024-03-12] MEDS: PANTOprazole 40 MG TAB PO SCH (08:07)
[2024-03-12] MEDS: guaiFENesin 600 MG TABCR PO SCH (08:07)
--- NOTE | 2024-03-12 09:54 | Electrocardiogram Report ---
Test Reason : Blood Pressure : / mmHG Vent. Rate : 084 BPM Atrial Rate : 084 BPM P-R Int : 186 ms QRS Dur : 082 ms QT Int : 366 ms P-R-T Axes : 054 -20 035 degrees QTc Int : 432 ms Normal sinus rhythm Normal ECG When compared with ECG of 13-NOV-2007 12:50, Vent. rate has increased BY 31 BPM Confirmed by Cong Amin ([id number]) on 03/12/2024 9:54:39 AM Referred By: REFERRED SELF Confirmed By:Cong Amin
--- OUTSIDE RECORDS SUMMARY | 2024-03-12 11:42 | External Medical Summary ---
Author Name Unknown Address Unknown Organization [id number][place] [place] [facility] [place] [address] Laboratory Report Ordering Provider Test Date Status RUSH TAYLOR 01/09/2024 10:04:12 Ita l Observation Date Value Abnormality Reference (Units ) Status BUN 01/09/2024 10:04:12 32 Above high normal 6-20 (mg/dL) Final Creatinine 01/09/2024 10:04:12 1.8 Above high normal 0.6-1.2 (mg/dL) Final Glomerular filtration rate/1.73 sq M.predicted [Volume Rate/Area] in Serum, Plasma or Blood by Creatinine-based formula (CKD-EPI) 01/09/2024 10:04:12 36 Below low normal >=60 (mL/min) Final eGFR is calculated based on the CKD-EPI 2020 equation Sodium 01/09/2024 10:04:12 137 135-146 (m mol/L) Final Potassium 01/09/2024 10:04:12 5.0 3.5-5.1 (m mol/L) Final Cl 01/09/2024 10:04:12 103 98-107 (mm ol/L) Final CO2 01/09/2024 10:04:12 24 22-32 (mmo l/L) Final Anion gap 01/09/2024 10:04:12 10 7-15 (mmol /L) Final Glucose 01/09/2024 10:04:12 98 70-120 (mg /dL) Final Calcium 01/09/2024 10:04:12 9.4 8.4-10.2 ( mg/dL) Final Performing Location [facility] [place] [address] [place] [address]
--- OUTSIDE RECORDS SUMMARY | 2024-03-12 11:42 | External Medical Summary ---
Author Name Unknown Address Unknown Organization [id number]:[facility] [place] [address] [place] [address] Laboratory Report Ordering Provider Test Date Status WALDEMAR TAYLORDelilah 01/09/2024 10:04:12 Ita l Observation Date Value Abnormality Reference (Units ) Status Hemoglobin 01/09/2024 10:04:12 12.1 Below low normal 14 .0-16.8 (g/dL) Final Performing Location LABORATORY [facility] - [address] [place] [address]
--- OUTSIDE RECORDS SUMMARY | 2024-03-12 11:42 | External Medical Summary | Summary of Care ---
Author Name Unknown Organization [facility] Address [address] [place] [address] Phone [phone] Care Team Providers Care Lay Out Drafter Name Role Phone Unavailable Primary Care Provider Unavailabl e Reason for Visit * Reason Comments Outpatient Testing Encounter Details Date Type Department Care Team (Late st Contact Info) Description 01/09/2024 10:10 AM EDT Laboratory Laboratory [address] [place] [id number] [place] [id number] Arrived Allergies No known active allergiesdocumented as of this encounter (statuses as of 01/09/2024) Medications Medication Sig Dispensed Refills Start Date End Date Status amoxicillin (AMOXIL) 500 MG CapsuleIndications:S BE (subacute bacterial endocarditis) prophylaxis candidate Take 4 pills before dental work 4 Cap 0 06/13/2017 Active Aspirin 81 MG Oral Tablet Chewable Take by mouth 1 Tablet in the morning. with food.. 90 Tablet 1 11/01/2021 Active Losartan Potassium 25 MG Oral Tablet (Cozaar)Indications: Essential hypertension with goal blood pressure less than 140/90 Take 1 Tablet by mouth in the morning. 90 Tablet 3 04/29/2023 Active Omeprazole 20 MG Oral Capsule Delayed Release (PriLOSEC)Indication s:Kidney disease, chronic, stage III (GFR 30-59 ml/min) (HCC) One pill by mouth once a day 1 hour before the first meal of the day 90 Capsule 3 04/29/2023 Active Propranolol HCl ER 80 MG Oral Capsule Extended Release 24 Hour (Inderal LA)Indications:HTN, goal below 140/90,Palpitations Take 1 Capsule by mouth in the morning. 90 Capsule 3 04/29/2023 Active Bpteuqn-Yjhiif-Fwjka Pertussis 5-2.5-18.5 LF-MCG/0.5 Suspension Prefilled Syringe (Boostrix)Indication s:Need for nlihkikhbx-fmkhzah-u ertussis (Tdap) vaccine Inject 0.5 mL into a large muscle once for 1 dose. 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 10/19 SCC in situ right antihleix 2009 ADVANCE DIRECTIVE INFORMATION 08/29/2010 BPH without obstruction/lower urinary tract symp toms 07/04/2004 Palpitations Hyperlipidemia LDL goal <100 documented as of this encounter (statuses as of 01/09/2024) Resolved Problems Problem Noted Date Diagnosed Date Resolved Date Chronic kidney disease, stage 3b 02/21/2021 01/09/2024 Overview: Per CKD protocol Prediabetes 10/22/2017 06/13/2018 Overview: Per Prediabetes protocol #1 KIDNEY DISEASE, CHRONIC, STA GE III (GFR 30-59 ML/MIN) 01/28/2012 12/20/2017 Overview: Per CKD protocol #1 HTN, goal below 140/90 07/27/200906/13 Overview: Modified per HTN protocol #16. 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 Dyslipidemia, goal to be determined 08/02/2010 Unspecified hyperplasia of prostate 11/26/2014 Benign hypertension with CKD (chronic kidney disease) stage III 01/19/2021 Overview: Per CKD protocol documented as of this encounter (statuses as of 01/09/2024) Immunizations Name Administration Dates Next Due COVID-19 mRNA, LNP-s, No Pre serve, 2-Dose Series (Vidmaker) 07/18/2021,11/22/2020,11/02/2020 COVID-19, LNP-s, No Preserve , Dougie-sucrose, Ages 12+ (Pfizer) 01/09/2022 COVID-19, MRNA-LNP, 23-24, P F, 30 MCG/0.3 mL, 12 YRS AND ABOVE, IM ([facility]) 07/08/2023 Covid-19, Mrna, Lnp-s, Pf, B ivalent, 30 Mcg, IM, 12 yrs and above (Pfizer) 01/10/2023,05/30/2022 Pneumococcal Conjugate Vacc, 13 Valent (Prevnar) 11/26/2014 Season Influenza, Quad, PF, Adjuvanted, 65+ Yrs, IM (FLUAD) 05/30/2020 Seasonal Influenza, PF, 6 M & above, IM , (FluLaval or Fluzone) 06/05/2018,06/27/2017 Seasonal Influenza, Quadriva lent Hd (Fluzone Hd) 05/27/2023,06/13/2022,06/15/2021 Seasonal Influenza, Quadriva lent, No Preserve, IM 05/31/2016 Seasonal Influenza, Split, I IV3, With Preserve, Inj 05/30/2015,05/26/2014,05/28/2013,2011,06/12/2011,05/26/2010,05/27/2009,1 09/11/2007,07/09/2007,07/09/2006 Seasonal Influenza, Trivalen t, Adjuvanted, 65+ yrs 06/08/2019 TD - Tetanus/Diptheria (ADULT) 07/09/2006 TDAP (age 10 and older)(Boostrix) 01/03/2023, Zoster Vaccine Recombinant (Shingrix) 04/14/2018 ,12/27/2017 documented as of this encounter Social History Tobacco Use Types Packs/Day Years Used Date Smoking Tobacco: Never Smokeless Tobacco: Never Alcohol Use Standard Drinks/Week Comments No 0 (1 standard drink = 0.6 oz pur e alcohol) PHQ-2 Answer Date Recorded PHQ Adult Total Score 0 09/06/2022 Hunger Vital Sign Answer Date Recorded Within the past 12 months, y ou worried that your food would run out before you got the money to buy more. Never true 09/06/20 22 Within the past 12 months, t he food you bought just didn't last and you didn't have money to get more. Never true 09/06/2022 Sex and Gender Information Value Date Recorded Sex Assigned at Male 09/06/2022 11:00 AM EST Gender Identity Male 09/06/2022 11:00 AM EST Sexual Orientation Straight 09/06/2022 11 :00 AM EST Job Start Date Occupation Industry Not on file Not on file Not on file documented as of this encounter Plan of Treatment Upcoming Encounters Date Type Department Care Team (Late st Contact Info) Description 07/28/2024 7:20 AM EST Office Visit Family Medicine [address] [place] [phone] Amita De Luna MD [address] [place] [address] [place] [address] 10/07/2024 12:40 PM EST Office Visit Dermatology [facility] [place] [address] [place] [address] Judy Nugent PA-C [address] [place] [phone] Health Maintenance Due Date Last Done Comments Depression Screening 09/06/2023 09/06/2022 Albumin/Creatinine Ratio 01/04/2024 023, 01/03/2022, 01/02/2021, Additional history exists CKD HGB USE SMARTSET 45955 01/04/202401/03, 12/27/2021, 01/02/2021, Additional history exists CKD PHOS USE SMARTSET 50120 01/04/202412/09, 12/27/2021, 01/02/2021, Additional history exists DTaP,Tdap,and Td Vaccines (3 - Td or Tdap) 01/03/2033 01/03/2023, 11/20/2012, 07/09/2006, Additional history exists Pneumococcal Vaccine: 65+ Years Completed 11/26/2014, 06/15/2002 Zoster Vaccines Completed 04/14/2018, 12/27/2017 Influenza Vaccine (FLU shot) Completed , 06/13/2022, 06/15/2021, Additional history exists COVID-19 Vaccine Completed 07/08/2023, 12/2022, 05/30/2022, Additional history exists GARDASIL-HPV IMMUNIZATION SERIES Aged Out No longer eligible based on patient's age to complete this topic Hepatitis B Aged Out No longer eligi ble based on patient's age to complete this topic MENINGOCOCCAL (MENACTRA/MENVEO) Aged Out No longer eligible based on patient's age to complete this topic documented as of this encounter Medical Devices Not on filedocumented as of this encounter
--- OUTSIDE RECORDS SUMMARY | 2024-03-12 11:42 | External Medical Summary ---
Author Name Unknown Address Unknown Organization K01:[facility] [place] [address] [place] [address] Laboratory Report Ordering Provider Test Date Status RUSH TAYLOR 01/09/2024 10:04:12 Ita l Normal: <30 mg/g creatinine< br/>High: 30-300 mg/g creatinine
Very High: >300 mg/g creatinine
Nephrotic: >2200 mg/g creatinine Observation Date Value Abnormality Reference (Units ) Status Albumin, Urine 01/09/2024 10:04:12 2.79 (mg/dL) Final Creatinine, Urine 01/09/2024 10:04:12 66 (mg/dL) Final Albumin/Creatinine [Mass Ratio] in Urine 01/09/2024 10:04:12 42 Above high normal <30 (mg/g Creat) Final Performing Location [facility] [place] [address] [place] [address]
--- OUTSIDE RECORDS SUMMARY | 2024-03-12 11:42 | External Medical Summary ---
Author Name Unknown Address Unknown Organization [id number][place] [place] [address] [facility] [address] Laboratory Report Ordering Provider Test Date Status WALDEMAR TAYLORDelilah 01/09/2024 10:04:12 Ita l Observation Date Value Abnormality Reference (Units ) Status HbA1C 01/09/2024 10:04:12 5.7 Above high normal 4. 0-5.6 (%) Final The use of HbA1c to monitor glycemic status is based on normal hemoglobin and HbA composition. This test should not be used in patients with abnormal hemoglobin that affects the half life of the red blood cell or the in vivo glycation rates. Glucose, estimated average 01/09/2024 10:04:12 117 <126 (mg/dL) Final Performing Location [facility] [place] [address] [facility] [address]
--- OUTSIDE RECORDS SUMMARY | 2024-03-12 11:42 | External Medical Summary ---
Author Name Unknown Address Unknown Organization K01:[facility] - [address] [place] [id number] Laboratory Report Ordering Provider Test Date Status RUSH TAYLOR 01/09/2024 10:04:12 Ita l Observation Date Value Abnormality Reference (Units ) Status Triglyceride 01/09/2024 10:04:12 89 <=174 ( mg/dL) Final Triglyceride Reference Range s (mg/dL):
<150 Acceptable
150-174 Borderline high
175-499 High
>=500 Very high Cholesterol 01/09/2024 10:04:12 151 <200 (mg /dL) Final Total Cholesterol Reference Ranges (mg/dL):
<200 Desirable
200-239 Borderline high
>=240 High HDL 01/09/2024 10:04:12 39 Below low normal >39 (mg/dL) Final HDL Cholesterol Reference Ra nges (mg/dL):
>=60 High (Desirable)
<50 Low (Undesirable) For Females
<40 Low (Undesirable) For Males NON-HDL CHOLESTEROL 01/09/2024 10:04:12 112 <=159 (mg/dL) Final Non-HDL Cholesterol Referenc e Range (mg/dL):
<100 Target level for high risk ASCVD patient
<130 Optimal for general population
130-159 Near optimal for general population
160-189 Borderline High
190-219 High
>=220 Very High LDL, (calculated) 01/09/2024 10:04:12 94 <= 129 (mg/dL) Final LDL Cholesterol Reference Ra nges (mg/dL):
<70 Target level for high risk ASCVD patient
<100 Optimal for general population
100-129 Near optimal for general population
130-159 Borderline high
160-189 High
>=190 Very high Performing Location [facility] [place] - [address] [facility] [id number]
--- OUTSIDE RECORDS SUMMARY | 2024-03-12 11:42 | External Medical Summary | Summary of Care ---
Author Name Unknown Organization [facility] Address [address] [place] [address] Phone [phone] Care Team Providers Care Lace Pinner Name Role Phone Unavailable Primary Care Provider Unavailabl e Reason for Visit * Reason Comments Re-Check Encounter Details Date Type Department Care Team (Late st Contact Info) Description 01/09/2024 9:20 AM EDT Office Visit Family Medicine [address] [place] [address] Amita De Luna MD [address] [place] [address] [place] [address] HTN, goal below 140/90*; Need for yivmmyqcqu-uqvyfxm-zw rtussis (Tdap) vaccine; Hyperlipidemia LDL goal <100; 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 90 Capsule 3 04/29/2023 Active Wxxcwam-Wwrwtm-Katcs Pertussis 5-2.5-18.5 LF-MCG/0.5 Suspension Prefilled Syringe (Boostrix)Indication s:Need for ercjojbtow-imiobaj-k ertussis (Tdap) vaccine Inject 0.5 mL into [...] mRNA, LNP-s, No Pre serve, 2-Dose Series ([employer]) 07/18/2021,11/22/2020,11/02/2020 COVID-19, LNP-s, No Preserve , Dougie-sucrose, Ages 12+ (Pfizer) 01/09/2022 COVID-19, MRNA-LNP, 23-24, P F, 30 MCG/0.3 mL, 12 YRS AND ABOVE, IM ([employer]) 07/08/2023 Covid-19, Mrna, Lnp-s, Pf, B ivalent, 30 Mcg, IM, 12 yrs and above ([employer]) 01/10/2023,05/30/2022 Pneumococcal Conjugate Vacc, 13 Valent (Prevnar) [...] on file documented as of this encounter Last Filed Vital Signs Vital Sign Reading Time Taken Comments Blood Pressure 138/78 01/09/2024 9:20 AM EDT Pulse 95 01/09/2024 9:20 AM EDT Temperature 35.7 C (96.2 F) 01/09/2024 9:20 AM ED T Respiratory Rate - - Oxygen Saturation 98% 01/09/2024 9:20 AM EDT Inhaled Oxygen Concentration - - Weight 84.3 kg (185 lb 12.8 oz) 01/09/2024 9:20 AM EDT Height - - Body Mass Index 28.25 09/06/2022 11:02 AM EST documented in this encounter Progress Notes * Amita De Luna MD - 01/09/2024 9:40 AM EDT Subjective: HPI: Jesus Brown is a 88 year old male with hx of HLD, HTN, CKD III, BPH, Prediabetes, Anemia seen for Per pt he did not get the tdap shot last year - pt is confident that he did not get the shot - would like another script HTN with CKD IIIb - on losartan 25mg daily, Inderal ER 80mg daily - denied any syncope or dizziness - pt drinks 2 glasses of water daily Per pt he takes amoxicillin prior to dental procedure due to history of hip replacements Patient Active Problem List Diagnosis Code BPH without obstruction/lower urinary tract symptoms N40.0 ADVANCE DIRECTIVE INFORMATION History of nonmelanoma skin cancer Z85.828 Primary hypertension I10 SBE (subacute bacterial endocarditis) prophylaxis candidate Z29.89 Palpitations R00.2 Hyperlipidemia LDL goal <100 E78.5 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 with food.. 90 Tablet 1 Losartan Potassium 25 MG Oral Tablet (Cozaar) Take 1 Tablet by mouth in the morning. 90 Tablet 3 Omeprazole 20 MG Oral Capsule Delayed Release (PriLOSEC) One pill by mouth once a day 1 hour beforethe first meal of the day 90 Capsule 3 Propranolol HCl ER 80 MG Oral Capsule Extended Release 24 Hour (Inderal LA) Take 1 Capsule by mouthin the morning. 90 Capsule 3 Utatphi-Aevjmz-Syltb Pertussis 5-2.5-18.5 LF-MCG/0.5 Suspension Prefilled Syringe (Boostrix) Inject0.5 mL into a large muscle once for 1 dose. As directed 0.5 mL 0 No current facility-administered medications for this visit. Past Medical History: Diagnosis Date Actinic keratosis Benign hypertension with CKD (chronic kidney disease) stage III (HCC) CKD (chronic kidney disease), stage III (HCC) 08/02/2010 GFR 59.2 COVID-19 05/10/2021 mild Hyperlipidemia LDL goal <100 Hypertrophy of prostate without urinary obstruction and other lower urinary tract symptoms (LUTS) Palpitations Personal history of other malignant neoplasm of skin history of nonmelanoma skin cancer Primary localized osteoarthrosis, pelvic region and thigh SBE (subacute bacterial endocarditis) prophylaxis candidate Past Surgical History: Procedure Laterality Date ARTHROPLASTY KNEE TOTAL 03/2008 left COLONOSCOPY 08/24/2008 dr watts EGD, FLEXIBLE, INSERT WIRE, PASS DILATOR 01/18/2011 DILATATION KNEE ARTHROSCOPY/SURGERY 1988 REMOVE TONSILS & ADENOIDS, UNDER 12 TOTAL HIP REPLACEMENT & PROSTHESIS Right 12/2008 right TOTAL HIP REPLACEMENT & PROSTHESIS Left 03/24/2019 [place] Review of patient's allergies indicates: No Known Allergies Family History Problem Relation Age of Onset Neurological Disorder Mother dementia Social History Tobacco Use Smoking status: Never Smokeless tobacco: Never Substance Use Topics Alcohol use: No Vaping/E-Cigarette Use Vaping/E-Cigarette Use Never User Vaping/E-Cigarette Substances Vaping/E-Cigarette Devices ROS: -Per HPI OBJECTIVE: BP 138/78 | Pulse 95 | Temp 35.7 C (96.2 F) | Wt 84.3 kg (185 lb 12.8 oz) | SpO2 98% | BMI 28.25 kg/m | BSA 2.01 m PHYSICAL EXAM: Vitals are reviewed General:. NAD, well developed HEENT:. Normal Conjunctiva, EOMI Cardiac:. Normal S1, S2, no murmur Lungs:. CTA, no wheezing or crackles MSK:. Normal gait Psych:. AAOx3, normal affect ASSESSMENT/PLAN: HTN, goal below 140/90 (Primary) - BP wnl - continue losartan 25mg daily Need for ugaorvpamy-ppytmpm-igsnmjctt (Tdap) vaccine - Pukozln-Leswiv-Gjhmh Pertussis 5-2.5-18.5 LF-MCG/0.5 Suspension Prefilled Syringe (Boostrix); Inject 0.5 mL into a large muscle once for 1 dose. 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 Amita De Luna MD Family medicine, [place] [phone] documented in this encounter Nursing Notes * Pamela Huber CMA - 01/09/2024 9:15 AM EDT He is here for a 6 mo recheck today. He was a patient of Dr. Herrera and is here to establish with Dr. Florez. He has no problems or concerns. He is doing well. documented in this encounter Plan of Treatment Upcoming Encounters Date Type Department Care Team (Late st Contact Info) Description 07/28/2024 7:20 AM EST Office Visit Family Medicine [address], [place] [id number] Amita De Luna MD [address] [place] [address] [place] [id number] 10/07/2024 12:40 PM EST Office Visit [facility] Monahan [address] [place] [address] [place] [id number] Judy Nugent PA-C [address] [facility] [place] [phone] Pending Results Name Type Priority Associated Diagnoses Date /Time HEMOGLOBIN A1C Lab Routine Prediabetes 01/09/2024 10:04 AM EDT LIPID PANEL WITHOUT DIRECT LDL Lab Routine Hyperlipidemia LDL goal <100 01/09/2024 10:04 AM EDT ALBUMIN / CREATININE RATIO, URINE Lab Routine 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) 01/09/2024 10:04 AM EDT BASIC METABOLIC PANEL Lab Routine 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) 01/09/2024 10:04 AM EDT HGB Lab Routine 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) 01/09/2024 10:04 AM EDT Health Maintenance Due Date Last Done Comments Depression Screening 09/06/2023 09/06/2022 Albumin/Creatinine Ratio 01/04/2024 023, 01/03/2022, 01/02/2021, Additional history exists CKD HGB USE SMARTSET 63508 01/04/202401/03, 12/27/2021, 01/02/2021, Additional history exists CKD PHOS USE SMARTSET 83203 01/04/202412/09, 12/27/2021, 01/02/2021, Additional history exists DTaP,Tdap,and [...] Not on filedocumented as of this encounter Visit Diagnoses Diagnosis HTN, goal below 140/90- Primary Unspecified essential hypertension Need for xwfybvkxfl-bhpbflk-vccsjetki (Tdap) vaccine Need for prophylactic vaccination with combined gxyvdwrtwb-dkegcxb-uyhhizutm (DTP) vaccine Hyperlipidemia LDL goal <100 Other and unspecified hyperlipidemia 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
--- NOTE | 2024-03-12 13:08 | Hospitalist Progress Note ---
Date of Service March 12, 2024 Assessment & Plan (1) Severe sepsis: Plan: 88-year-old male with PMH of HTN, CKD [baseline creatinine of 1.8], chronic anemia [baseline hemoglobin of 12], prediabetes, BPH, skin cancer presented to the ED 03/11 with complaint of 1 and half weeks of cough productive of clear sputum and associated weakness. He reports occasional choking symptoms. He is being managed for the following: Likely community-acquired pneumonia versus aspiration pneumonia Sepsis POA: WBC, temperature, respiratory rate elevated at presentation. Secondary to above. Lactate WNL. Procalcitonin elevated. Hypoxia: Not in respiratory failure as no respiratory distress documented in ED or admitting Examination findings. Patient presents with 1 and half weeks of cough associated with weakness and has history of occasional choking on food per pt and his son. Admitting imaging with bilateral groundglass opacities consistent with infectious or inflammatory process. Patient started on Unasyn 03/12 and doxycycline 03/12. Patient reports feeling better and improving cough. Wean down oxygen as tolerated. Two-step test prior to discharge, repeat chest imaging in about 6 weeks time to document resolution of pneumonia. Add probiotics. c/w Nebs RTC. Pulm consult if w/ no improvement. 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 EKG with no acute ST or T changes. Continue telemetry monitoring. Other chronic medical conditions: Continue with/resume home meds as and when able. hypertension, stable CRI, creatinine at baseline Acute on chronic anemia, no overt bleed, FOBT done at ED was negative prediabetes, hemoglobin A1c of 5.7 last January 2024 PT OT eval, speech eval. DVT prophylaxis. Heparin subcu Full code Patient son Mr. Damaso Brown, contact #[phone]. He was updated at bedside during 2nd visit w/ the patient. Text document was generated using [employer] voice recognition software. It may contain grammatical or spelling errors. Kindly contact undersigned for clarification of any documentation item in question. Admission and Anticipated Discharge Date Admission Date: March 11, 2024 Subjective Patient was seen and examined at bedside. Patient was lying in bed, on 2 L nasal cannula oxygen, resting comfortably, NAD. Patient reports having cough for about 1 and half week and feeling weak about the same time, denies fever, reports cough getting better. He also reports choking on food occasionally. Patient denies chest pain or abdominal pain. Patient reports feeling better today. Physical Exam Physical Exam: GENERAL: Comfortable, pleasant, slightly hard of hearing, no respiratory distress, on 2L NC O2. SKIN: Pallor, warm HEENT: Alopecia, pale palpebral conjunctivae, no ptosis, moist buccal mucosa, nasal cannula in place NECK : Supple, no tenderness CHEST : Decreased breath sounds, no tenderness, bb crackles HEART : RRR, no obvious murmurs ABDOMEN: Some distention, nontender EXTREMITIES : No LE swelling/tenderness, no other conspicuous deformities noted NEUROLOGIC : Coherent, no facial asymmetry, slightly hard of hearing, no other gross focality Results & Data Results & Data Vital Signs (Past 12 Hours) Vital Signs Temp Pulse Pulse Resp BP BP BP 03/12/24 11:26 38.0 C H 71 17 147/69 H 03/12/24 08:08 65 03/12/24 07:53 36.8 C 57 L 17 159/57 H 03/12/24 07:21 49 L 03/12/24 07:14 58 L 16 03/12/24 03:33 03/12/24 03:08 36.8 C 81 20 146/75 H 03/12/24 01:06 46 L 24 122/70 Pulse Ox O2 Del Method O2 Flow Rate 03/12/24 11:26 92 Nasal Cannula 2 03/12/24 08:08 03/12/24 07:53 92 Room Air 03/12/24 07:21 03/12/24 07:14 98 Nasal Cannula 1 03/12/24 03:33 Nasal Cannula 2 03/12/24 03:08 96 Nasal Cannula 2 03/12/24 01:06 95 Nasal Cannula 3
[2024-03-12] MEDS: FLUTICASONE/VILANTEROL 100/25MCG 14 PUFFS/INHALER INH SCH (13:52)
[2024-03-12] MEDS: ADVANCED PROBIOTIC 625 MG CAPSULE PO SCH (13:54)
[2024-03-12] MEDS: ACETAMINOPHEN 325 MG TAB PO PRN (16:09)
[2024-03-12] MEDS: ALBUT/IPRATROP 3MG/0.5MG NEB 3 ML VIAL NEB PRN (23:09)
[2024-03-12] MEDS ORDERED: methylPREDNISolone 125 MG/2 ML VIAL IV STA (23:17)
[2024-03-12] MEDS: methylPREDNISolone 20 MG in SYRINGE 0 ML IV STA (23:27)
[2024-03-12 23:35] LABS: Base Excess ABG -4.9 mEq/L (-9-1.8); HCO3 ABG 17 mmol/L (19-24); Oxygen Saturation ABG 98.4 % (90-95); PCO2 ABG 25 mmHg (35-46); PO2 ABG 95 mmHg (80-95); pH ABG 7.45 (7.35-7.45)
[2024-03-12 23:44] LABS: Allen Test Pos (Pos)
[2024-03-13] MEDS: ALBUT/IPRATROP 3MG/0.5MG NEB 3 ML VIAL NEB SCH (01:58)
[2024-03-13 07:23] LABS: Hematocrit (blood only) 26.1 % (42.0-52.0); Hemoglobin 9.1 g/dl (14.0-18.0); Mean Corpuscular Hemoglobin 34.2 pg (25.0-34.0); Mean Corpuscular Hgb Conc 34.9 g/dL (32.0-36.0); Mean Corpuscular Volume 98.1 fL (80.0-100.0); Mean Platelet Volume 10.1 fL (9.4-12.4); Platelet Count 161 K/uL (130-400); RDW Standard Deviation 49.7 fL (36.4-46.3); Red Blood Count 2.66 M/uL (4.70-6.10); White Blood Count 8.15 K/ul (4.8-10.8)
[2024-03-13 07:26] LABS: BUN Creatinine Ratio 16.9 (10-20); Calcium 7.8 mg/dl (8.6-10.3); Creatinine Clr Calc Pharmacy 30.3 ml/min; Est GFR (African American) 40.5 ml/min; Magnesium 1.9 mg/dl (1.7-2.4); Phosphorus 4.1 mg/dl (2.5-4.9)
--- NOTE | 2024-03-13 07:57 | XRay Report ---
XR chest 1V portable CLINICAL HISTORY: low o2 TECHNIQUE: Single frontal radiograph of the chest was obtained. Comparison: Comparison is made to chest radiograph 03/11/[address] chest 03/12/2024 FINDINGS: No lines and tubes are seen. Calcified aortic knob is seen. Multifocal airspace opacities are seen. N o evidence of pleural effusion or pneumothorax. IMPRESSION: Multifocal airspace opacities compatible with pneumonia and/or aspiration. ACT 112: Negative or not required by law. Electronically signed by: Jose Robertson M.D. 03/13/2024 7:55 AM
[2024-03-13] MEDS: LOSARTAN POTASSIUM 25 MG TAB PO SCH (08:44)
--- NOTE | 2024-03-13 12:16 | Pulmonary Consultation ---
Date of Consultation March 13, 2024 Assessment & Plan (1) Hypoxia: (2) Pneumonia: Laterality: bilateral Lung location: unspecified part of lung Pneumonia type: due to unspecified organism Qualified Code(s): J18.9 - Pneumonia, unspecified organism (3) Abnormal CT scan of lung: Plan Impression: 88-year-old male non-smoker with prior history of COVID now with hypoxemic respiratory failure and diffuse pulmonary infiltrates. His procalcitonin was elevated which raises the possibility of bacterial infection including secondary bacterial infection given his recent viral illness. Noninfectious etiologies including pulmonary hemorrhage and atypical pulmonary edema would also be in the differential. Recommendations: 1. Hypoxemia: Continue supplemental oxygen titrated to keep saturations at or above 88%. Provide incentive spirometry to try and improve atelectasis and VQ mismatch. Out of bed to chair as tolerated. Ambulate as tolerated. 2. Possible pneumonia: Continue antibiotics in the form of Unasyn and doxycycline. Check Legionella urinary antigen. Trend procalcitonin. Follow fever curve and white blood cell count. 3. Abnormal CT scan: BNP elevated. Atypical pulmonary edema is possible. Check echocardiogram. Diuretics per primary service. Unclear if some of the findings were seeing could represent sequelae of his prior viral infections. Prior films were not available to review. Radiographic follow-up will be indicated. Somewhat reassuring that his viral PCR was negative however this does not exclude all viral entities. If the patient fails to improve or clinically worsens, consideration for serological evaluation and potential bronchoscopy might be appropriate. The above recommendations and plan were extensively discussed with the patient as well as with his family at bedside. Questions were answered to the best my ability. They expressed understanding and are in agreement with plan as History of Present Illness Attending Physician: Robert Blue MD History of Present Illness Asked by hospitalist to assist in evaluation management this patient with hypoxemia and pulmonary infiltrates. History is obtained from discussion with the patient as well as family at bedside and reviewed the electronic medical record. Patient is an 88-year-old male lifelong non-smoker without significant pulmonary history who states he was diagnosed with COVID manifesting as a cough several months ago. He was apparently placed on prednisone which resulted in improvement in his symptoms. The cough returned and he was seen at an urgent care center a few weeks ago. He was given a second prescription of prednisone which he thinks may have offered him some benefit. He returned to urgent care as the cough returned when the prednisone came off and he was placed on Advair. There is no prior history of asthma. He has had intermittently persistent productive cough producing some white phlegm. He is never had hemoptysis. His was recently diagnosed with COVID but reportedly his COVID test was negative. He was hypoxemic in the emergency room and received Rocephin and doxycycline which was transition to Unasyn and doxycycline by the admitting service. He initially required about 2 L oxygen nasal cannula but this morning went up to 4 L nasal cannula which prompted a pulmonary consultation. Patient denies any chest pain or palpitations. He has not had fevers chills night sweats or other constitutional symptoms. His appetite is good. His weight is stable. 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 He has no significant occupational environmental exposures. No pets at home. No hot tub exposures. No other ill contacts. Allergies Allergy/AdvReac Type Severity Reaction Status Date / Time No Known Allergies Allergy Unknown Verified 03/11/24 21:46 Home Medications Medication Instructions Recorded Confirmed Type acetaminophen 500 mg tablet 1,000 mg PO DIRECTED PRN Pain 03/11/24 03/11/24 History (Tylenol Extra Strength) fluticasone 113 mcg-salmeterol 14 1 inh inhalation BID 03/11/24 03/11/24 History mcg/actuation breath activated powdr losartan 25 mg tablet 25 mg PO DAILY 03/11/24 03/11/24 History omeprazole 20 mg capsule,delayed 20 mg PO DAILY 03/11/24 03/11/24 History release propranolol 80 mg capsule,24 80 mg PO DAILY 03/11/24 03/11/24 History hr,extended release Patient History Social History Smoking Status: Never smoker Hx Alcohol Use: No Hx Substance Use: No Preferred Language: Palestinian Communication Ability: Effective Crm Architect Required: No Beliefs That Will Affect Care: None Current Living Situation: Alone Current Living Situation Comment: lives with at home Other Information That Helps Us Care for You: No Feels Safe at Home: Yes Safety Concerns: Feels Safe At This Time Assistive Devices: Glasses Assistive Devices Comment: utilizing cane during this hospital visit d/t weakness; baseline is no aid Review of Systems Review of Systems: Please refer to admission H&P. No additions or deletions Physical Exam Constitutional: WD/WN, vitals as above Neck: trachea midline, no thyromegaly Respiratory: no respiratory distress, no labored breathing, no cough and not tachypneic Auscultation: + crackles; no wheezes Cardiovascular: RRR, no murmur, no edema Gastrointestinal (Abdomen): normal bowel sounds, soft, nontender, no h epatosplenomegaly Musculoskeletal: Extremities: extremities normal to inspection Skin: no rashes, warm and dry Neurologic: Nonfocal exam Lymphatic: no cervical lymphadenopathy Results & Data Results & Data Vital Signs (Past 12 Hours) Vital Signs Temp Pulse Pulse Resp BP Pulse Ox O2 Del Method 03/13/24 12:03 87 16 92 Nasal Cannula 03/13/24 10:37 Nasal Cannula 03/13/24 07:36 36.5 C 57 L 18 113/65 95 Nasal Cannula 03/13/24 07:21 61 18 96 Nasal Cannula 03/13/24 07:15 50 L 03/13/24 03:42 36.9 C 71 18 115/57 L 97 Nasal Cannula 03/13/24 01:59 66 14 95 Nasal Cannula 03/13/24 00:30 99 Nasal Cannula O2 Flow Rate 03/13/24 12:03 4 03/13/24 10:37 4 03/13/24 07:36 4 03/13/24 07:21 4 03/13/24 07:15 03/13/24 03:42 5 03/13/24 01:59 5 03/13/24 00:30 12 Laboratory Results Procalcitonin elevated on admission at 10.4 BNP elevated 312 Critical Care Results & Data Vital Signs (Past 12 Hours) Vital Signs Temp Pulse Pulse Resp BP Pulse Ox O2 Del Method 03/13/24 12:03 87 16 92 Nasal Cannula 03/13/24 10:37 Nasal Cannula 03/13/24 07:36 36.5 C 57 L 18 113/65 95 Nasal Cannula 03/13/24 07:21 61 18 96 Nasal Cannula 03/13/24 07:15 50 L 03/13/24 03:42 36.9 C 71 18 115/57 L 97 Nasal Cannula 03/13/24 01:59 66 14 95 Nasal Cannula 03/13/24 00:30 99 Nasal Cannula O2 Flow Rate 03/13/24 12:03 4 03/13/24 10:37 4 03/13/24 07:36 4 03/13/24 07:21 4 03/13/24 07:15 03/13/24 03:42 5 03/13/24 01:59 5 03/13/24 00:30 12 Lab & Micro Results (Past 24 Hours) RBC 2.66 M/uL (4.70-6.10) L 03/13/24 WBC 8.15 K/ul (4.8-10.8) 03/13/24 Hgb 9.1 g/dl (14.0-18.0) L 03/13/24 Hct 26.1 % (42.0-52.0) L 03/13/24 MCV 98.1 fL (80.0-100.0) 03/13/24 MCH 34.2 pg (25.0-34.0) H 03/13/24 MCHC 34.9 g/dL (32.0-36.0) 03/13/24 RDW Standard Deviation 49.7 fL (36.4-46.3) H 03/13/24 RDW Coefficient of Variation 14.0 % (11.5-14.5) 03/13/24 Plt Count 161 K/uL (130-400) 03/13/24 MPV 10.1 fL (9.4-12.4) 03/13/24 Na 133 mmol/L (136-145) L 03/13/24 K 4.0 mmol/L (3.5-5.1) 03/13/24 Cl 102 mmol/L (98-107) 03/13/24 CO2 21 mmol/L (21-32) 03/13/24 Anion Gap 10 (3-11) 03/13/24 BUN 29 mg/dl (6-23) H 03/13/24 Creatinine 1.72 mg/dl (0.6-1.4) H 03/13/24 Estimated GFR ( Amer) 40.5 ml/min 03/13/24 Estimated GFR (Non-Af Amer) 35.0 ml/min 03/13/24 BUN/Creatinine Ratio 16.9 (10-20) 03/13/24 Glu 127 mg/dl (70-99(Fasting)) H 03/13/24 Ca 7.8 mg/dl (8.6-10.3) L 03/13/24 Phosphorus Level 4.1 mg/dl (2.5-4.9) 03/13/24 Mg 1.9 mg/dl (1.7-2.4) 03/13/24 06:11 Calcium Level 7.8 mg/dl (8.6-10.3) L 03/13/24 06:11 Arterial Blood pH 7.45 (7.35-7.45) 03/12/24 23:24 Arterial Blood Partial Pressure CO2 25 mmHg (35-46) L 03/12/24 23:24 Arterial Blood Partial Pressure O2 95 mmHg (80-95) 03/12/24 23: 24 Arterial Blood HCO3 17 mmol/L (19-24) L 03/12/24 23:24 Arterial Blood Base Excess -4.9 mEq/L (-9-1.8) 03/12/24 23:24 Arterial Blood Oxygen Saturation 98.4 % (90-95) H 03/12/24 23:2 4 Blood Gas Oxygen Given 12L 03/12/24 23:24 Romie Test Pos (Pos) 03/12/24 23:24 Microbiology 03/11/24 20:07 Aerobic Blood Culture - Preliminary Blood No growth in Aerobic bottle after 24 hours. Anaerobic Blood Culture - Preliminary No growth in Anaerobic bottle after 24 hours. 03/11/24 19:54 Aerobic Blood Culture - Preliminary Blood No growth in Aerobic bottle after 24 hours. Anaerobic Blood Culture - Preliminary No growth in Anaerobic bottle after 24 hours. Diagnostic Findings (Past 24 Hours) Chest X-Ray 03/12/24 23:17 XR chest 1V portable CLINICAL HISTORY: low o2 TECHNIQUE: Single frontal radiograph of the chest was obtained. Comparison: Comparison is made to chest radiograph 03/11/[address] chest 03/12/2024 FINDINGS: No lines and tubes are seen. Calcified aortic knob is seen. Multifocal airspace opacities are seen. No evidence of pleural effusion or pneumothorax. IMPRESSION: Multifocal airspace opacities compatible with pneumonia and/or aspiration. ACT 112: Negative or not required by law. Electronically signed by: Jose Robertson M.D. 03/13/2024 7:55 AM I & O Totals 24 Hours 03/12/24 03/13/24 03/14/24 06:59 06:59 06:59 Intake Total 750 / 750 1989 Output Total 175 / 175 402 / 402 Balance 575 / 575 1588 / 1588 Cumulative 03/11/24 16:58 thru 03/13/24 06:57 Intake Total 2740 Output Total 577 Balance 2163 RT Ventilator Mngmt (Last Documented) Ventilator Ordered Settings Respiratory Rate 16 03/13/24 12:03 Ventilator - PT Measurements Respiratory Rate 16 PG Care Time/CCT Total # of Minutes Spent Total Time Spent with Patient: Total time spent is greater than 50% in coordination of care (as documented) at patient's floor/unit and/or counseling patient: Coding Level of Care Code 42008 INT INP/OBS CARE 3/75MIN Diagnoses Hypoxia R09.02 Pneumonia J18.9 Laterality: bilateral Lung location: unspecified part of lung Pneumonia type: due to unspecified organism Abnormal CT scan of lung R91.8
--- NOTE | 2024-03-13 14:08 | Hospitalist Progress Note ---
Date of Service March 13, 2024 Assessment & Plan (1) Severe sepsis: Plan: 88-year-old male with PMH of HTN, CKD [baseline creatinine of 1.8], chronic anemia [baseline hemoglobin of 12], prediabetes, BPH, skin cancer presented to the ED 03/11 with complaint of 1 and half weeks of cough productive of clear sputum and associated weakness. He reports occasional choking symptoms. He is being managed for the following: Likely community-acquired pneumonia versus aspiration pneumonia Sepsis POA: WBC, temperature, respiratory rate elevated at presentation. Secondary to above. Lactate WNL. Procalcitonin elevated. Hypoxia: Not in respiratory failure as no respiratory distress documented in ED or admitting Examination findings. Patient presents with 1 and half weeks of cough associated with weakness and has history of occasional choking on food per pt and his son. Admitting imaging with bilateral groundglass opacities consistent with infectious or inflammatory process. Repeat CXR 03/12 (after increased O2 req) - Multifocal airspace opacities compatible with pneumonia and/or aspiration. BNP elevated, will send echo. Patient started on Unasyn 03/12 and doxycycline 03/12. c/w incentive spirometry Patient reports feeling better and improving cough. WBC and Procal trending down. Wean down oxygen as tolerated. Two-step test prior to discharge, repeat chest imaging in about 6 weeks time to document resolution of pneumonia. c/w probiotics. c/w Nebs RTC. Pulm on board, appreciate recs. Aspiration precautions, DOCK OPERATOR eval Demand ischemia: Troponin flat trend around 30, patient with no chest pain, likely secondary to acute illness [see above]. EKG with no acute ST or T changes. Continue telemetry monitoring. Other chronic medical conditions: Continue with/resume home meds as and when able. hypertension, stable CRI, creatinine at baseline Acute on chronic anemia, no overt bleed, FOBT done at ED was negative prediabetes, hemoglobin A1c of 5.7 last January 2024 PT OT eval, speech eval. DVT prophylaxis. Heparin subcu Full code Patient son Mr. Damaso Brown, contact #[phone]. He was updated at bedside during 2nd visit w/ the patient on 03/12. Pt's BALDOMERO Baptiste [ [phone] ] was given a phone call and updated. approx 9 minutes, answered all her questions to her satisfaction. She states they are not available for sean if Pt were to discharge sean. Text document was generated using [employer] voice recognition software. It may contain grammatical or spelling errors. Kindly contact undersigned for clarification of any documentation item in question. Admission and Anticipated Discharge Date Admission Date: March 11, 2024 Subjective Patient was seen and examined at bedside. Patient was sitting up in bed, on 4L nasal cannula oxygen, resting comfortably, NAD. Per RN, pt needed increased O2 since last evening, has moved 3 loose stools since yesterday, none today, pt is eating ok. Pt reports improving cough and reports feeling better. Patient denies chest pain or abdominal pain. Physical Exam Physical Exam: GENERAL: Comfortable, pleasant, slightly hard of hearing, no respiratory distress, on 4L NC O2. SKIN: Pallor, warm HEENT: Alopecia, pale palpebral conjunctivae, no ptosis, moist buccal mucosa, nasal cannula in place NECK : Supple, no tenderness CHEST : Decreased breath sounds, no tenderness, bb crackles HEART : RRR, no obvious murmurs ABDOMEN: Some distention, nontender EXTREMITIES : No LE swelling/tenderness, no other conspicuous deformities noted NEUROLOGIC : Coherent, no facial asymmetry, slightly hard of hearing, no other gross focality Results & Data Results & Data Vital Signs (Past 12 Hours) Vital Signs Temp Pulse Pulse Resp BP Pulse Ox O2 Del Method 03/13/24 13:30 95 03/13/24 12:03 87 16 92 Nasal Cannula 03/13/24 10:37 Nasal Cannula 03/13/24 07:36 36.5 C 57 L 18 113/65 95 Nasal Cannula 03/13/24 07:21 61 18 96 Nasal Cannula 03/13/24 07:15 50 L 03/13/24 03:42 36.9 C 71 18 115/57 L 97 Nasal Cannula O2 Flow Rate 03/13/24 13:30 03/13/24 12:03 4 03/13/24 10:37 4 03/13/24 07:36 4 03/13/24 07:21 4 03/13/24 07:15 03/13/24 03:42 5
--- NOTE | 2024-03-13 21:05 | XCELERA ---
[id number] \\[id number]
[2024-03-14 06:36] LABS: Hematocrit (blood only) 25.5 % (42.0-52.0); Hemoglobin 8.9 g/dl (14.0-18.0); Mean Corpuscular Hemoglobin 34.1 pg (25.0-34.0); Mean Corpuscular Hgb Conc 34.9 g/dL (32.0-36.0); Mean Corpuscular Volume 97.7 fL (80.0-100.0); Mean Platelet Volume 9.8 fL (9.4-12.4); Platelet Count 177 K/uL (130-400); RDW Coefficient of Variation 13.9 % (11.5-14.5); RDW Standard Deviation 49.7 fL (36.4-46.3); Red Blood Count 2.61 M/uL (4.70-6.10); White Blood Count 13.07 K/ul (4.8-10.8)
[2024-03-14 06:53] LABS: BUN Creatinine Ratio 23.6 (10-20); Est GFR (African American) 48.6 ml/min; Est GFR (Non-African American) 41.9 ml/min; Phosphorus 3.5 mg/dl (2.5-4.9)
--- NOTE | 2024-03-14 08:20 | Pulmonology Progress Note ---
Date of Service March 14, 2024 Assessment & Plan (1) Hypoxia: (2) Pneumonia: Laterality: bilateral Lung location: unspecified part of lung P neumonia type: due to unspecified organism Qualified Code(s): J18.9 - Pneumonia, unspecified organism (3) Abnormal CT scan of lung: Plan Impression: 88-year-old male non-smoker with prior history of COVID now with hypoxemic respiratory failure and diffuse pulmonary infiltrates. His procalcitonin was elevated which raises the possibility of bacterial infection including secondary bacterial infection given his recent viral illness. Noninfectious etiologies including pulmonary hemorrhage and atypical pulmonary edema would also be in the differential. Recommendations: 1. Hypoxemia: Continue supplemental oxygen titrated to keep saturations at or above 88%. Patient was educated on the incentive spirometer at the bedside by myself. Out of bed to chair as tolerated. Ambulate as tolerated. 2. Possible pneumonia: Continue antibiotics (Unasyn doxycycline). Legionella urinary antigen pending, low suspicion. Procalcitonin decreasing. 3. Abnormal CT scan: BNP elevated. Echo unrevealing. Follow-up chest x-ray in a.m. If the patient fails to improve or clinically worsens, consideration for serological evaluation and potential bronchoscopy might be appropriate. Will continue to follow with you. Admission and Anticipated Discharge Date Admission Date: March 11, 2024 Subjective Patient seen and examined. EMR reviewed. The patient reports that he is feeling better. He states that the nurse came in and turned his oxygen up this morning as he woke up because he was low. He is improved. He is not coughing. He is not expectorating any phlegm. He denies any chest pain or palpitations. Echocardiogram completed with results noted below Review of Systems 2 Review of Systems: All systems reviewed & are unremarkable except as noted in Subjective Physical Exam 2 Constitutional: WD/WN, vitals as above Neck: trachea midline, no thyromegaly Respiratory: no respiratory distress, no labored breathing, no cough and not tachypneic Auscultation: + crackles; no wheezes Cardiovascular: RRR, no murmur, no edema Gastrointestinal (Abdomen): normal bowel sounds, soft, nontender, no hepatosplenomegaly Musculoskeletal: Extremities: extremities normal to inspection Skin: no rashes, warm and dry Lymphatic: no cervical lymphadenopathy Results & Data Results & Data Vital Signs (Past 12 Hours) Vital Signs Temp Pulse Pulse Resp BP Pulse Ox O2 Del Method 03/14/24 08:14 36.4 C L 84 18 128/65 94 Nasal Cannula 03/14/24 07:30 Nasal Cannula 03/14/24 07:15 77 18 96 Nasal Cannula 03/14/24 07:12 56 L 03/14/24 03:37 36.5 C 89 18 123/62 95 Nasal Cannula 03/14/24 02:15 63 03/14/24 01:19 64 17 97 Nasal Cannula 03/13/24 22:56 Nasal Cannula 03/13/24 22:25 36.5 C 74 18 143/66 H 93 Nasal Cannula O2 Flow Rate 03/14/24 08:14 5 03/14/24 07:30 5 03/14/24 07:15 6 03/14/24 07:12 03/14/24 03:37 5 03/14/24 02:15 03/14/24 01:19 5 03/13/24 22:56 4 03/13/24 22:25 5 Laboratory Results Microbiology 03/11/24 20:07 Blood Aerobic Blood Culture - Preliminary No growth in Aerobic bottle after 48 hours. 03/11/24 20:07 Blood Anaerobic Blood Culture - Preliminary No growth in Anaerobic bottle after 48 hours. 03/11/24 19:54 Blood Aerobic Blood Culture - Preliminary No growth in Aerobic bottle after 48 hours. 03/11/24 19:54 Blood Anaerobic Blood Culture - Preliminary No growth in Anaerobic bottle after 48 hours. 03/14/24 05:58 03/14/24 05:58 Diagnostic Findings Echocardiogram with EF greater than 70% without regional wall motion abnormalities. Mild diastolic dysfunction. No valvular abnormalities. Potential pulmonary hypertension PG Care Time/CCT Total # of Minutes Spent Total Time Spent with Patient: Total time spent is greater than 50% in coordination of care (as documented) at patient's floor/unit and/or counseling patient: Coding Level of Care Code 98093 SUB INP/OBS CARE 2/35MIN Diagnoses Hypoxia R09.02 Pneumonia J18.9 Laterality: bilateral Lung location: unspecified part of lung Pneumonia type: due to unspecified organism Abnormal CT scan of lung R91.8
--- NOTE | 2024-03-14 12:11 | Hospitalist Progress Note ---
Date of Service March 14, 2024 Assessment & Plan (1) Severe sepsis: Plan: 88-year-old male with PMH of HTN, CKD [baseline creatinine of 1.8], chronic anemia [baseline hemoglobin of 12], prediabetes, BPH, skin cancer presented to the ED 03/11 with complaint of 1 and half weeks of cough productive of clear sputum and associated weakness. He reports occasional choking symptoms. He is being managed for the following: Multifocal pneumonia Hypoxia due to above Sepsis-POA --CT Chest:Bilateral ground-glass attenuation, consistent with infectious or inflammatory etiology. Correlate clinically. --Biofire: Negative --ECHO: EF greater than 70%. Moderate concentric LVH. Mild pulmonary hypertension. --Urine for Legionella -- Continue Unasyn, doxycycline Wean off of supplemental oxygen as able Appreciate pulmonology input May need 2 step prior to discharge Aspiration precautions Nebs as needed Repeat chest x-ray today pending Demand ischemia: Troponin flat trend No chest pain Monitor Other chronic medical conditions: Continue with/resume home meds as and when able. hypertension, stable CRI, creatinine at baseline Acute on chronic anemia, no overt bleed, FOBT done at ED was negative prediabetes, hemoglobin A1c of 5.7 last January 2024 DVT Px: Heparin SQ CODE STATUS Full code Disposition PT OT prior to discharge Admission and Anticipated Discharge Date Admission Date: March 11, 2024 Subjective Patient is seen and examined at bedside Less cough today States having some dyspnea on exertion No other complaints today Review of Systems Review of Systems: All systems reviewed & are unremarkable except as noted in Subjective Physical Exam Physical Exam: Physical Exam: Vitals signs as noted above General Appearance:Moderately built and nourished, no apparent distress Head: normocephalic, Atraumatic Eyes: normal inspection, EOMI Neck: supple, Trachea midline Respiratory/Chest: Normal breath sounds, minimal basal crackles, No accessory muscle use Cardiovascular: S1, S2, No murmur Abdomen/GI:Soft, Non tender, Bowel sounds present Extremities/Musculoskeletal:normal inspection, no edema Neurologic/Psych:AAOX3, grossly no focal neurological deficits Skin: normal color, warm Results & Data Results & Data Vital Signs (Past 12 Hours) Vital Signs Temp Pulse Pulse Resp BP Pulse Ox O2 Del Method 03/14/24 08:14 36.4 C L 84 18 128/65 94 Nasal Cannula 03/14/24 07:30 Nasal Cannula 03/14/24 07:15 77 18 96 Nasal Cannula 03/14/24 07:12 56 L 03/14/24 03:37 36.5 C 89 18 123/62 95 Nasal Cannula 03/14/24 02:15 63 03/14/24 01:19 64 17 97 Nasal Cannula O2 Flow Rate 03/14/24 08:14 5 03/14/24 07:30 5 03/14/24 07:15 6 03/14/24 07:12 03/14/24 03:37 5 03/14/24 02:15 03/14/24 01:19 5 Laboratory Results Short CBC 03/14/24 Range/Units 05:58 WBC 13.07 H (4.8-10.8) K/ul Hgb 8.9 L (14.0-18.0) g/dl Hct 25.5 L (42.0-52.0) % Plt Count 177 (130-400) K/uL BMP 03/14/24 05:58 Sodium 134 L Potassium 4.0 Chloride 104 Carbon Dioxide 21 BUN 35 H Creatinine 1.48 H Glucose 118 H Calcium 8.0 L
--- NOTE | 2024-03-15 07:46 | Pulmonology Progress Note ---
Date of Service March 15, 2024 Assessment & Plan (1) Hypoxia: (2) Pneumonia: Laterality: bilateral Lung location: unspecified part of lung P neumonia type: due to unspecified organism Qualified Code(s): J18.9 - Pneumonia, unspecified organism (3) Abnormal CT scan of lung: Plan Impression: 88-year-old male non-smoker with prior history of COVID now with hypoxemic respiratory failure and diffuse pulmonary infiltrates. His procalcitonin was elevated which raises the possibility of bacterial infection including secondary bacterial infection given his recent viral illness. Noninfectious etiologies including pulmonary hemorrhage and atypical pulmonary edema would also be in the differential. Recommendations: 1. Hypoxemia: Oxygen requirement increased over the last 24 hours. May be due to difficulty with pulmonary secretions as chest x-ray is not significantly changed. Will start hypertonic saline and increase Mucinex to 1200 twice daily. Continue flutter valve and incentive spirometry. Repeat chest x-ray in a.m.. 2. Possible pneumonia: Continue antibiotics (Unasyn doxycycline). Legionella urinary antigen pending, low suspicion. Procalcitonin decreasing. Recheck procalcitonin in a.m. white count increased today of unclear etiology. Remains afebrile. Nasal MRSA screen negative. Respiratory PCR unremarkable 3. Abnormal CT scan: BNP elevated. Echo unrevealing. One-time dose of Lasix now May require repeat CT imaging if clinical condition continues to deteriorate and the patient fails to respond to the above interventions, consideration for bronchoscopy with BAL might be appropriate. Will continue to follow with you. Admission and Anticipated Discharge Date Admission Date: March 11, 2024 Subjective Patient seen and examined. EMR reviewed. Discussed with patient and bedside nurse. The patient has had an escalation in his oxygen requirement compared to yesterday. He desatted into the 70s overnight. He is now coughing and having some difficulty expectorating thick phlegm. He feels short of breath when he takes his oxygen off. Is not had any hemoptysis. He denies any chest pain. No palpitations. No significant lower extremity edema Review of Systems 2 Review of Systems: All systems reviewed & are unremarkable except as noted in Subjective Physical Exam 2 Constitutional: WD/WN, vitals as above Neck: trachea midline, no thyromegaly Respiratory: no respiratory distress, no labored breathing, no cough and not tachypneic Auscultation: + crackles; no wheezes Cardiovascular: RRR, no murmur, no edema Gastrointestinal (Abdomen): normal bowel sounds, soft, nontender, no hepatosplenomegaly Musculoskeletal: Extremities: extremities normal to inspection Skin: no rashes, warm and dry Lymphatic: no cervical lymphadenopathy Results & Data Results & Data Vital Signs (Past 12 Hours) Vital Signs Temp Pulse Pulse Resp BP Pulse Ox O2 Del Method 03/15/24 07:10 89 20 92 Oxymask 03/15/24 04:00 37.1 C 72 18 144/69 H 94 Oxymask 03/15/24 00:39 99 Nasal Cannula 03/15/24 00:22 73 03/15/24 00:17 95 H 24 88 L Oxymask 03/14/24 23:55 70 L Nasal Cannula 03/14/24 21:09 Nasal Cannula O2 Flow Rate 03/15/24 07:10 15 03/15/24 04:00 10 03/15/24 00:39 10 03/15/24 00:22 03/15/24 00:17 15 03/14/24 23:55 6 03/14/24 21:09 5 Laboratory Results 03/14/24 05:58 03/14/24 05:58 Diagnostic Findings Chest x-ray from today was reviewed. There are persistent bilateral patchy parenchymal opacities, not significantly progressed compared to prior. PG Care Time/CCT Total # of Minutes Spent Total Time Spent with Patient: Total time spent is greater than 50% in coordination of care (as documented) at patient's floor/unit and/or counseling patient: Coding Level of Care Code 42085 SUB INP/OBS CARE 2/35MIN Diagnoses Hypoxia R09.02 Pneumonia J18.9 Laterality: bilateral Lung location: unspecified part of lung Pneumonia type: due to unspecified organism Abnormal CT scan of lung R91.8
[2024-03-15 08:12] LABS: Hematocrit (blood only) 25.8 % (42.0-52.0); Hemoglobin 8.9 g/dl (14.0-18.0); Mean Corpuscular Hemoglobin 33.8 pg (25.0-34.0); Mean Corpuscular Hgb Conc 34.5 g/dL (32.0-36.0); Mean Corpuscular Volume 98.1 fL (80.0-100.0); Mean Platelet Volume 9.9 fL (9.4-12.4); Platelet Count 207 K/uL (130-400); RDW Coefficient of Variation 14.1 % (11.5-14.5); RDW Standard Deviation 50.8 fL (36.4-46.3); Red Blood Count 2.63 M/uL (4.70-6.10); White Blood Count 10.52 K/ul (4.8-10.8)
--- NOTE | 2024-03-15 08:30 | XRay Report ---
XR chest 1V portable CLINICAL HISTORY: pna TECHNIQUE: Single frontal radiograph of the chest was obtained. Comparison: Comparison is made to chest radiograph 03/12/2024 FINDINGS: No lines and tubes are seen. Multiple airspace opacities are essentially unchanged from prior exam. C ardiac silhouette is unchanged. No evidence of pleural effusion or pneumothorax. IMPRESSION: Multifocal airspace opacities, grossly unchanged from prior exam. ACT 112: Negative or not required by law. Electronically signed by: Jose Robertson M.D. 03/15/2024 8:29 AM
[2024-03-15 08:37] LABS: BUN Creatinine Ratio 22.6 (10-20); Calcium 8.2 mg/dl (8.6-10.3); Creatinine Clr Calc Pharmacy 34.5 ml/min; Est GFR (African American) 42.9 ml/min; Potassium 4.2 mmol/L (3.5-5.1)
[2024-03-15] MEDS: guaiFENesin 600 MG TABCR PO SCH (09:13)
[2024-03-15] MEDS: FUROSEMIDE INJ 20 MG/2 ML VIAL IV ONE ×2 (09:13→18:08)
--- NOTE | 2024-03-15 13:06 | Hospitalist Progress Note ---
Date of Service March 15, 2024 Assessment & Plan (1) Severe sepsis: Plan: 88-year-old male with PMH of HTN, CKD [baseline creatinine of 1.8], chronic anemia [baseline hemoglobin of 12], prediabetes, BPH, skin cancer presented to the ED 03/11 with complaint of 1 and half weeks of cough productive of clear sputum and associated weakness. He reports occasional choking symptoms. He is being managed for the following: Multifocal pneumonia Hypoxia due to above Sepsis-POA --CT Chest:Bilateral ground-glass attenuation, consistent with infectious or inflammatory etiology. Correlate clinically. --Biofire: Negative --ECHO: EF greater than 70%. Moderate concentric LVH. Mild pulmonary hypertension. --Urine for Legionella -- Continue Unasyn, doxycycline Appreciate pulmonology input Will need 2 step prior to discharge Aspiration precautions Nebs as needed Repeat chest x-ray showed no significant change Added hypertonic saline, increased Mucinex dose today Continue flutter, incentive spirometry Continue supplemental oxygen Also received a dose of IV Lasix to keep on right side Pulmonology following Demand ischemia: Troponin flat trend No chest pain Monitor Other chronic medical conditions: Continue with/resume home meds as and when able. hypertension, stable CRI, creatinine at baseline Acute on chronic anemia, no overt bleed, FOBT done at ED was negative prediabetes, hemoglobin A1c of 5.7 last January 2024 DVT Px: Heparin SQ CODE STATUS Full code Disposition PT OT prior to discharge Admission and Anticipated Discharge Date Admission Date: March 11, 2024 Subjective Patient is seen and examined at bedside Increased supplemental oxygen requirement today Still has some cough No dyspnea at rest Reports having some dyspnea on exertion RN reports some delirium overnight Patient denies any chest pain, nausea, vomiting, abdominal pain Review of Systems Review of Systems: All systems reviewed & are unremarkable except as noted in Subjective Physical Exam Physical Exam: Physical Exam: Vitals signs as noted above General Appearance:Moderately built and nourished, no apparent distress Head: normocephalic, Atraumatic Eyes: normal inspection, EOMI Neck: supple, Trachea midline Respiratory/Chest: Normal breath sounds, minimal basal crackles, No accessory m uscle use Cardiovascular: S1, S2, No murmur Abdomen/GI:Soft, Non tender, Bowel sounds present Extremities/Musculoskeletal:normal inspection, no edema Neurologic/Psych:AAOX3, grossly no focal neurological deficits Skin: normal color, warm Results & Data Results & Data Vital Signs (Past 12 Hours) Vital Signs Temp Pulse Pulse Resp BP Pulse Ox O2 Del Method 03/15/24 11:51 36.4 C L 63 16 131/66 97 Nasal Cannula 03/15/24 09:15 Oxymask 03/15/24 08:39 36.8 C 67 16 130/70 97 Oxymask 03/15/24 07:43 68 03/15/24 07:10 89 20 92 Oxymask 03/15/24 04:00 37.1 C 72 18 144/69 H 94 Oxymask O2 Flow Rate 03/15/24 11:51 9 03/15/24 09:15 10 03/15/24 08:39 15 03/15/24 07:43 03/15/24 07:10 15 03/15/24 04:00 10 Laboratory Results Short CBC 03/15/24 Range/Units 07:16 WBC 10.52 (4.8-10.8) K/ul Hgb 8.9 L (14.0-18.0) g/dl Hct 25.8 L (42.0-52.0) % Plt Count 207 (130-400) K/uL BMP 03/15/24 07:16 Sodium 134 L Potassium 4.2 Chloride 103 Carbon Dioxide 22 BUN 37 H Creatinine 1.64 H Glucose 100 H Calcium 8.2 L
[2024-03-15] MEDS: LEVALBUTEROL HCL 0.63 MG/3 ML NEB NEB PRN (15:22)
[2024-03-15 15:55] LABS: Base Excess ABG -3.8 mEq/L (-9-1.8); HCO3 ABG 19 mmol/L (19-24); Oxygen Saturation ABG 92.4 % (90-95); PCO2 ABG 27 mmHg (35-46); PO2 ABG 57 mmHg (80-95); pH ABG 7.45 (7.35-7.45)
[2024-03-15 15:57] LABS: Allen Test Pos (Pos)
--- NOTE | 2024-03-15 16:29 | XRay Report ---
XR chest 1V portable CLINICAL HISTORY: Worsening Hypoxia, Pneumonia TECHNIQUE: Single frontal radiograph of the chest was obtained. Comparison: Comparison is made to chest radiograph 03/15/2024 FINDINGS: No lines and tubes are seen. Calcified aortic knob is seen. Multifocal airspace opacities are seen. N o evidence of pleural effusion or pneumothorax. IMPRESSION: Findings compatible with multifocal pneumonia, stable to slightly increased from prior exam. ACT 112: Negative or not required by law. Electronically signed by: Jose Robertson M.D. 03/15/2024 4:28 PM
[2024-03-15] MEDS: LORazepam 0.25 MG in SYRINGE 0.125 ML IV ONE (16:46)
[2024-03-15] MEDS: LORazepam 0.25 MG in SYRINGE 0.125 ML IV STA (17:08)
--- NOTE | 2024-03-15 17:16 | Communication Note ---
Date of Service: March 15, 2024 Patient's respiratory status continues to deteriorate. Repeat chest x-ray showed slight worsening of pneumonia. ABG fairly unchanged. Given persistent tachypnea, desaturation will place him on BiPAP. Updated cotton stomper on-call. Also updated patient's son who is POA. Readdressed CODE STATUS: Patient's son confirms patient to be DNI DNR. Will transfer to PCU for closer monitoring. Will give additional dose of IV Lasix.
[2024-03-15] MEDS: oxyCODONE HCL IR 5 MG TAB (IMMEDIATE RELEASE) PO PRN (18:09)
--- NOTE | 2024-03-15 18:41 | Communication Note ---
Date of Service: March 15, 2024 Responded to [facility] call on the [facility]. Patient had just arrived to [facility], per report amara giron was heard and patient was found on the floor away from his bed. Unsure of height of fall or how he got on the floor (direct fall out of bed or while walking). He was not on his oxygen while on the floor. C - spine precautions were initiated with manual control until C- Collar could be applied. He was placed on 10L NRB and had immediate rise in his SPO2 to 97%. The patient was awake, conversant, could move his legs, feet, hands and arms. C- collar was placed and secured appropriately, he was then log rolled to spine board to lift him back into bed. Spine board was removed noting no pain in back, pelvis was rocked and stable, without pain per patient. S/P unwitnessed fall from unknown height or mechanism ( ICD W19)- Rapid response care post fall - Primary hospitalist service did arrive- recommended head CT non con as he is on heparin infusion and unsure of head strike - Cervical Spine CT to eval for cervical injury- can remove if imaging is clear and patient able to be clinically cleared by primary service - Labs deferred at this time - no events noted on telemetry Full care turned over to hospitalist service as above. Paul GARNETT ([facility]-) TIme: 20 minutes
--- NOTE | 2024-03-15 18:43 | Communication Note ---
Date of Service: March 15, 2024 Attended code naida. Unwitnessed fall the patient was found on the floor Was seen and examined by ACNP-BC, Remained hemodynamically stable-ordered CT scan of the head and neck without contrast Cervical collar was applied until the results of the CAT scan are available The neck collar can be removed if there is no fracture in the neck movement is okay Dr Braulio Anaya
--- NOTE | 2024-03-15 18:47 | CT Scan Report ---
CT head/brain wo con CLINICAL HISTORY: R/O bleed Technique: Contiguous axial CT images of the head were acquired from the base of the skull to the belen desirae without intravenous contrast administration. Images were viewed in brain, subdural and bone [facility] ws. Automated dose lowering techniques and/or adjustment according to patient size were utilized for this exam. Comparison: None available at the time of this dictation. Findings: Areas of decreased attenuation are present in the periventricular and subcortical white matter bilate rally consistent with small vessel ischemic disease. Generalized cerebral atrophy with commensurate e nlargement of the ventricles, sulci, and cisterns is also present. There is no acute intracranial hem orrhage or evidence of acute territorial infarction. No shift of the midline structures, mass effect, or extra-axial abnormalities are shown. Atherosclerotic calcifications are present in the intracran ial segments of the internal carotid arteries. Imaged portions of the paranasal sinuses and mastoid air cells are clear. The orbits appear normal. There are no acute fractures of the calvaria or scalp swelling. Impression: No acute intracranial hemorrhage, no evidence of acute territorial infarction or other acute intracra nial disease process. ACT 112: Negative or not required by law. Electronically signed by: Jose Robertson M.D. 03/15/2024 6:46 PM
--- NOTE | 2024-03-15 18:50 | CT Scan Report ---
CT cervical spine wo con CLINICAL HISTORY: R/O Fracture TECHNIQUE: Multidetector row helical CT of the cervical spine was performed without administration of intravenous contrast. Coronal and sagittal reformations were obtained. Automated dose lowering techn iques and/or adjustment according to patient size were utilized for this exam. Comparison: None available at the time of this dictation. FINDINGS: No acute fractures or subluxations are identified. Degenerative changes are seen in the visualized sp ine. The alignment is normal. Opacities are seen in the bilateral lung. IMPRESSION: Degenerative changes without evidence of acute bony injury. ACT 112: Negative or not required by law. Electronically signed by: Jose Robertson M.D. 03/15/2024 6:49 PM
[2024-03-15] MEDS: SODIUM CHLOR 7% 4 ML NEB NEB SCH (19:35)
[2024-03-15] MEDS: OLANZapine ZYDIS 5 MG ORALLY DIS. TAB PO STA (19:43)
[2024-03-16] MEDS: OLANZapine 10 MG/2.1 ML SDV IM STA (00:27)
[2024-03-16 07:08] LABS: Hematocrit (blood only) 25.1 % (42.0-52.0); Hemoglobin 8.7 g/dl (14.0-18.0); Mean Corpuscular Hemoglobin 34.1 pg (25.0-34.0); Mean Corpuscular Hgb Conc 34.7 g/dL (32.0-36.0); Mean Corpuscular Volume 98.4 fL (80.0-100.0); Mean Platelet Volume 9.8 fL (9.4-12.4); Platelet Count 179 K/uL (130-400); RDW Coefficient of Variation 14.1 % (11.5-14.5); RDW Standard Deviation 50.8 fL (36.4-46.3); Red Blood Count 2.55 M/uL (4.70-6.10); White Blood Count 8.64 K/ul (4.8-10.8)
[2024-03-16 07:25] LABS: BUN Creatinine Ratio 22.2 (10-20); Calcium 8.2 mg/dl (8.6-10.3); Creatinine Clr Calc Pharmacy 29.2 ml/min; Est GFR (Non-African American) 30.2 ml/min; Potassium 4.1 mmol/L (3.5-5.1)
[2024-03-16] MEDS: PIPER/TAZO 4.5g in D5W MINI-B 100 ML IV ONE (08:06)
--- NOTE | 2024-03-16 08:24 | Pulmonology Progress Note ---
Date of Service March 16, 2024 Assessment & Plan (1) Hypoxia: (2) Pneumonia: Laterality: bilateral Lung location: unspecified part of lung P neumonia type: due to unspecified organism Qualified Code(s): J18.9 - Pneumonia, unspecified organism (3) Abnormal CT scan of lung: Plan Impression: 88-year-old male non-smoker with prior history of COVID now with hypoxemic respiratory failure and diffuse pulmonary infiltrates. His procalcitonin was elevated which raises the possibility of bacterial infection including secondary bacterial infection given his recent viral illness. Noninfectious etiologies including pulmonary hemorrhage and atypical pulmonary edema would also be in the differential. CT chest 03/12/2024 personally reviewed: Diffuse patchy groundglass opacities appreciated bilaterally upper and lower lobes No significant mediastinal lymphadenopathy 2D echo 03/13/2024: EF 70%, moderate concentric LVH, RVSP 40-45 mmHg, RV normal in size and function --Acute hypoxic respiratory failure With diffuse groundglass opacities bilaterally Did complain of diarrhea prior to coming to the hospital, also had hyponatremia on presentation BNP 312 on 03/13/2024 Procalcitonin 5.54 with patient having underlying CKD Bio fire negative for everything, nasal MRSA negative Continue with O2 supplementation to keep oxygen saturation between 90-92% --Abnormal chest CT With diffuse alveolar opacities groundglass bilaterally Differential includes infectious etiology like atypical pneumonia, patient is not immunosuppressed to think about PJP Noninfectious etiologies include diffuse alveolar hemorrhage, pulmonary edema, autoimmune disease causing NSIP like pattern Patient is requiring too much oxygen, making him high risk for intubation for bronchoscopy -- DNR/DNI Plan: In/out: +3.5 L since coming to the hospital. Would recommend to keep the patient negative balance DC doxycycline, start the patient on levofloxacin and dose it based on the creatinine. Continue with Zosyn Will also start the patient on Solu-Medrol 40 mg twice daily Doppler bilateral lower extremity rule out DVT There has been drop in hemoglobin since he came to the hospital but is also positive for 0.5 L. Denies any hemoptysis Follow sputum culture Case was discussed with RN as well as Dr. Vasquez Please note the above document was generated using voice recognition software. It may contain grammatical, syntax or spelling errors.Any formal questions or concerns about the content, text or information contained within the body of this dictation should be directly addressed to the provider for clarification. Admission and Anticipated Discharge Date Admission Date: March 11, 2024 Subjective Patient seen and examined at bedside. He was sleeping while on BiPAP 08/14, respiratory rate was in the high 20s. He was getting tidal volumes around 450-500 He was saturating only 85-86% while on it. I increased his EPAP to 8. This did improve his oxygenation Patient is hard to hear. He denied any chest pain, no headache, occasional coughing with clear phlegm. Denies any hemoptysis No nausea vomiting. Appetite is poor Case was discussed with outgoing correctional treatment specialist Review of Systems 2 Review of Systems: All systems reviewed & are unremarkable except as noted in Subjective Physical Exam 2 Physical Exam: Constitutional: No acute distress HEENT: EOMI, PERRLA Respiratory system: Decreased air entry bilaterally, no wheeze, no rhonchi, positive crackles appreciated bilaterally anteriorly and posteriorly CVS: S1-S2 positive, no murmurs or gallops Abdomen: Soft, nontender, nondistended, positive bowel sounds x4 Extremities: +2 pulses bilaterally radialis/ dorsalis pedis, no cyanosis, no edema Neuro: Awake alert oriented x3 Psych: Normal mood and affect G/U: Positive Mcdaniels Skin: no rashes, warm and dry Lymphatic: no cervical or axillary lymphadenopathy Results & Data Results & Data Vital Signs (Past 12 Hours) Vital Signs Temp Pulse Pulse Resp BP BP Pulse Ox 03/16/24 06:54 53 L 26 H 90 03/16/24 06:54 53 L 26 H 90 03/16/24 04:32 36.5 C 67 20 161/57 H 92 03/16/24 03:37 60 29 H 97 03/16/24 01:37 95 03/16/24 01:05 55 L 26 H 98 03/16/24 00:33 36.7 C 64 21 124/57 L 94 03/15/24 23:00 55 L 30 H 98 03/15/24 22:05 56 L O2 Del Method O2 Flow Rate 03/16/24 06:54 10 03/16/24 06:54 BiPAP 10 03/16/24 04:32 BiPAP 03/16/24 03:37 10 03/16/24 01:37 High Flow Nasal Cannula 6 03/16/24 01:05 BiPAP 10 03/16/24 00:33 Room Air 03/15/24 23:00 10 03/15/24 22:05 Laboratory Results 03/16/24 06:26 03/16/24 06:26 PG Care Time/CCT Total # of Minutes Spent Total Time Spent with Patient: Total time spent is greater than 50% in coordination of care (as documented) at patient's floor/unit and/or counseling patient: Coding Level of Care Code 74060 SUB INP/OBS CARE 3/50MIN Diagnoses Hypoxia R09.02 Pneumonia J18.9 Laterality: bilateral Lung location: unspecified part of lung Pneumonia type: due to unspecified organism Abnormal CT scan of lung R91.8
[2024-03-16] MEDS: levoFLOXacin/D5W 750 MG/150 ML BAG IV SCH (13:00)
[2024-03-16] MEDS: methylPREDNISolone 40 MG in SYRINGE 0 ML IV SCH (13:00)
--- NOTE | 2024-03-16 14:09 | Ultrasound Report ---
BILATERAL LOWER EXTREMITY VENOUS DOPPLER HISTORY: Shortness of breath. Rule out DVT COMPARISON STUDY: None. FINDINGS: There is normal compressibility, flow, and augmentation within the bilateral lower extremit y deep venous systems. IMPRESSION: No DVT within the right or left lower extremity. ACT 112: Negative or not required by law. Electronically signed by: Luke Shepard M.D. 03/16/2024 2:08 PM
[2024-03-16] MEDS: PIPERACILLIN/TAZOBACTAM 4.5 GM in DEXTROSE 5% MINI-B 100 ML IV SCH (14:29)
--- NOTE | 2024-03-16 14:56 | Hospitalist Progress Note ---
Date of Service March 16, 2024 Assessment & Plan (1) Severe sepsis: Plan: 88-year-old male with PMH of HTN, CKD [baseline creatinine of 1.8], chronic anemia [baseline hemoglobin of 12], prediabetes, BPH, skin cancer presented to the ED 03/11 with complaint of 1 and half weeks of cough productive of clear sputum and associated weakness. He reports occasional choking symptoms. He is being managed for the following: Multifocal pneumonia Acute hypoxic respiratory failure Sepsis-POA Patient presented with 10 days history of productive cough and generalized weakness. --CT Chest:Bilateral ground-glass attenuation, consistent with infectious or inflammatory etiology. Correlate clinically. --Biofire: Negative --ECHO: EF greater than 70%. Moderate concentric LVH. Mild pulmonary hypertension. Patient was initially placed on Unasyn and doxycycline; switched over to Zosyn and levofloxacin today. Patient is also started on Solu-Medrol twice a day continue airway clearance with hypertonic saline Wean off oxygen as tolerated to keep SpO2 above 90% Bipap as needed Unwitnessed fall Patient had an unwitnessed fall on March 15, [address] cervical spine was done; no acute findings Fall precautions Demand ischemia: Troponin flat trend No chest pain Monitor LASHON on CKD, likely secondary to sepsis Creatinine of 1.6-1.7 at baseline; increased to 1.9 today Avoid nephrotoxic agent Hold losartan Continue monitor daily Other chronic medical conditions: Continue with/resume home meds as and when able. hypertension, stable Acute on chronic anemia, no overt bleed, FOBT done at ED was negative prediabetes, hemoglobin A1c of 5.7 last January 2024 DVT Px: Heparin SQ CODE STATUS DNR/DNI Disposition PT OT prior to discharge Discussed with patient's and [id number] at bedside. Provided clinical updates. Answer questions/queries. They are in agreement with the plan Time spent evaluating patient, direct bedside care, chart review, placing orders, interpretation of diagnostic studies, discussion with consultants, patient, and family members, as well as other required patient management activities is 60 minutes Please note the above document was generated using voice recognition software. It may contain grammatical, syntax or spelling errors. Any formal questions or concerns about the content, text or information contained within the body of this dictation should be directly addressed to the provider for clarification Admission and Anticipated Discharge Date Admission Date: March 11, 2024 Subjective Patient seen and examined at bedside in the morning and in the afternoon with family He appeared to be more comfortable in the afternoon; was conversing with family. He is able to answer most of the question He appeared to be in mild respiratory distress. He was requiring high flow nasal cannula. Review of Systems Review of Systems: All systems reviewed & are unremarkable except as noted in Subjective Physical Exam Physical Exam: Constitutional: Alert, oriented to self and place. Not in distress. Respiratory: Decreased air entry bilaterally. Crackles in bilateral upper and lower goldberg. Cardiovascular: RRR, no murmur, no edema Vessels: no JVD or carotid bruit Chest: normal inspection of chest Abdomen: normal bowel sounds, soft, nontender, no hepatosplenomegaly Musculoskeletal: no cyanosis or clubbing, extremities motor strength 5/5 Skin: no rashes, warm and dry normal turgor Neurologic: PERRL, EOMI, accommodation nl, no face palsy, no dysarthria CN's II- XI intact bilaterally and moves all extremities Psychiatric: A+Ox3, euthymic affect Results & Data Results & Data Vital Signs (Past 12 Hours) Vital Signs Temp Pulse Pulse Resp BP BP Pulse Ox 03/16/24 14:40 36.8 C 80 22 138/70 96 03/16/24 12:11 73 24 90 03/16/24 11:33 36.5 C 57 L 20 156/62 H 91 03/16/24 09:26 03/16/24 08:00 36.7 C 55 L 20 123/58 L 94 03/16/24 07:27 48 L 03/16/24 06:54 53 L 26 H 90 03/16/24 06:54 53 L 26 H 90 03/16/24 04:32 36.5 C 67 20 161/57 H 92 03/16/24 03:37 60 29 H 97 O2 Del Method O2 Flow Rate FiO2 03/16/24 14:40 High Flow Nasal Cannula 60 03/16/24 12:11 High Flow Nasal Cannula 60 100 03/16/24 11:33 Oxymask 12.0 03/16/24 09:26 BiPAP 03/16/24 08:00 BiPAP 03/16/24 07:27 03/16/24 06:54 10 03/16/24 06:54 BiPAP 10 03/16/24 04:32 BiPAP 03/16/24 03:37 10
--- NOTE | 2024-03-17 07:58 | Pulmonology Progress Note ---
Date of Service March 17, 2024 Assessment & Plan (1) Hypoxia: (2) Pneumonia: Laterality: bilateral Lung location: unspecified part of lung P neumonia type: due to unspecified organism Qualified Code(s): J18.9 - Pneumonia, unspecified organism (3) Abnormal CT scan of lung: Plan Impression: 88-year-old male non-smoker with prior history of COVID now with hypoxemic respiratory failure and diffuse pulmonary infiltrates. His procalcitonin was elevated which raises the possibility of bacterial infection including secondary bacterial infection given his recent viral illness. Noninfectious etiologies including pulmonary hemorrhage and atypical pulmonary edema would also be in the differential. CT chest 03/12/2024 personally reviewed: Diffuse patchy groundglass opacities appreciated bilaterally upper and lower lobes No significant mediastinal lymphadenopathy 2D echo 03/13/2024: EF 70%, moderate concentric LVH, RVSP 40-45 mmHg, RV normal in size and function --Acute hypoxic respiratory failure With diffuse groundglass opacities bilaterally Did complain of diarrhea prior to coming to the hospital, also had hyponatremia on presentation BNP 312 on 03/13/2024 Procalcitonin 5.54 with patient having underlying CKD Bio fire negative for everything, nasal MRSA negative Doppler bilateral lower extremity negative 03/16/2024 Continue with O2 supplementation to keep oxygen saturation between 90-92% --Abnormal chest CT With diffuse alveolar opacities groundglass bilaterally Differential includes infectious etiology like atypical pneumonia, patient is not immunosuppressed to think about PJP Noninfectious etiologies include diffuse alveolar hemorrhage, pulmonary edema, autoimmune disease causing NSIP like pattern Patient is requiring too much oxygen, making him high risk for intubation for bronchoscopy -- DNR/DNI Plan: In/out: +2.6 L since coming to the hospital. Would recommend to keep the patient negative balance Continue with levofloxacin and dose it based on the creatinine. Continue with Zosyn Continue with Solu-Medrol 40 mg twice daily Follow sputum culture Case was discussed with RN Please note the above document was generated using voice recognition software. It may contain grammatical, syntax or spelling errors.Any formal questions or concerns about the content, text or information contained within the body of this dictation should be directly addressed to the provider for clarification. Admission and Anticipated Discharge Date Admission Date: March 11, 2024 Subjective Patient seen and examined at bedside. No acute distress, no adverse events overnight He was on high flow 30 L, 45% saturating 78-80% Increase the FiO2 to 60%. He does complain of cough bringing up clear phlegm. Denies any chest congestion Shortness of breath is still there. Appetite is poor Denies any headache or blurry vision Review of Systems 2 Review of Systems: All systems reviewed & are unremarkable except as noted in Subjective Physical Exam 2 Physical Exam: Constitutional: No acute distress HEENT: EOMI, PERRLA Respiratory system: Decreased air entry bilaterally, no wheeze, no rhonchi, positive crackles appreciated bilaterally anteriorly and posteriorly CVS: S1-S2 positive, no murmurs or gallops Abdomen: Soft, nontender, nondistended, positive bowel sounds x4 Extremities: +2 pulses bilaterally radialis/ dorsalis pedis, no cyanosis, no edema Neuro: Awake alert oriented x3 Psych: Normal mood and affect G/U: Positive Mcdaniels Skin: no rashes, warm and dry Lymphatic: no cervical or axillary lymphadenopathy Results & Data Results & Data Vital Signs (Past 12 Hours) Vital Signs Temp Pulse Pulse Resp BP Pulse Ox O2 Del Method 03/17/24 07:28 36.4 C L 72 18 117/65 90 High Flow Nasal Cannula 03/17/24 07:11 60 22 93 High Flow Nasal Cannula 03/17/24 04:28 36.7 C 52 L 20 109/66 100 Nasal Cannula 03/17/24 04:04 52 L 24 100 High Flow Nasal Cannula 03/17/24 00:59 48 L 24 92 High Flow Nasal Cannula 03/16/24 23:57 36.4 C L 55 L 55 L 21 102/62 100 High Flow Nasal Cannula 03/16/24 22:56 94 03/16/24 21:50 94 High Flow Nasal Cannula 03/16/24 20:15 High Flow Nasal Cannula 03/16/24 20:01 74 25 H 94 High Flow Nasal Cannula O2 Flow Rate FiO2 03/17/24 07:28 30 03/17/24 07:11 30 45 03/17/24 04:28 600 03/17/24 04:04 30 50 03/17/24 00:59 30 50 03/16/24 23:57 03/16/24 22:56 30 50 03/16/24 21:50 30 50 03/16/24 20:15 03/16/24 20:01 30 40 Laboratory Results 03/16/24 06:26 03/16/24 06:26 PG Care Time/CCT Total # of Minutes Spent Total Time Spent with Patient: Total time spent is greater than 50% in coordination of care (as documented) at patient's floor/unit and/or counseling patient: Coding Level of Care Code 13480 SUB INP/OBS CARE 3/50MIN Diagnoses Hypoxia R09.02 Pneumonia J18.9 Laterality: bilateral Lung location: unspecified part of lung Pneumonia type: due to unspecified organism Abnormal CT scan of lung R91.8
[2024-03-17 08:13] LABS: Hematocrit (blood only) 24.7 % (42.0-52.0); Hemoglobin 8.4 g/dl (14.0-18.0); Mean Corpuscular Hemoglobin 33.3 pg (25.0-34.0); Mean Platelet Volume 10.1 fL (9.4-12.4); Platelet Count 205 K/uL (130-400); RDW Standard Deviation 49.7 fL (36.4-46.3); Red Blood Count 2.52 M/uL (4.70-6.10); White Blood Count 6.82 K/ul (4.8-10.8)
[2024-03-17 08:38] LABS: BUN Creatinine Ratio 25.7 (10-20); Calcium 8.1 mg/dl (8.6-10.3); Creatinine Clr Calc Pharmacy 30.9 ml/min; Est GFR (African American) 37.6 ml/min; Est GFR (Non-African American) 32.4 ml/min; Potassium 3.9 mmol/L (3.5-5.1)
[2024-03-17 08:42] LABS: Basophils # (auto) 0.01 K/uL (0.00-0.20); Basophils % (auto) 0.1 %; Immature Granulocytes # (auto) 0.05 K/uL (0.01-0.20); Immature Granulocytes % (auto) 0.7 %; Lymphocytes # (auto) 0.47 K/uL (1.20-3.40); Lymphocytes % (auto) 6.9 %; Monocytes % (auto) 1.5 %; Neutrophils # (auto) 6.19 K/uL (1.40-6.50); Neutrophils % (auto) 90.8 %
--- NOTE | 2024-03-17 15:02 | Hospitalist Progress Note ---
Date of Service March 17, 2024 Assessment & Plan (1) Severe sepsis: Plan: 88-year-old male with PMH of HTN, CKD [baseline creatinine of 1.8], chronic anemia [baseline hemoglobin of 12], prediabetes, BPH, skin cancer presented to the ED 03/11 with complaint of 1 and half weeks of cough productive of clear sputum and associated weakness. He reports occasional choking symptoms. He is being managed for the following: Multifocal pneumonia Acute hypoxic respiratory failure Sepsis-POA Patient presented with 10 days history of productive cough and generalized weakness. --CT Chest:Bilateral ground-glass attenuation, consistent with infectious or inflammatory etiology. Correlate clinically. --Biofire: Negative --ECHO: EF greater than 70%. Moderate concentric LVH. Mild pulmonary hypertension. Patient was initially placed on Unasyn and doxycycline; switched over to Zosyn and levofloxacin from 03/16/2024. Patient is also started on Solu-Medrol twice a day continue airway clearance with hypertonic saline Wean off oxygen as tolerated to keep SpO2 above 90% Bipap as needed Unwitnessed fall Patient had an unwitnessed fall on March 15, [address] cervical spine was done; no acute findings Fall precautions Demand ischemia: Troponin flat trend No chest pain Monitor LASHON on CKD, likely secondary to sepsis Creatinine of 1.6-1.7 at baseline; increased to 1.9 ton 03/16/2024 Avoid nephrotoxic agent Hold losartan Continue monitor daily Other chronic medical conditions: Continue with/resume home meds as and when able. hypertension, stable Acute on chronic anemia, no overt bleed, FOBT done at ED was negative prediabetes, hemoglobin A1c of 5.7 last January 2024 DVT Px: Heparin SQ CODE STATUS DNR/DNI Disposition PT OT prior to discharge Time spent evaluating patient, direct bedside care, chart review, placing orders, interpretation of diagnostic studies, discussion with consultants, patient, and family members, as well as other required patient management activities is 50 minutes Please note the above document was generated using voice recognition software. It may contain grammatical, syntax or spelling errors. Any formal questions or concerns about the content, text or information contained within the body of this dictation should be directly addressed to the provider for clarification Admission and Anticipated Discharge Date Admission Date: March 11, 2024 Subjective Patient seen and examined at bedside He reports that he is feeling slightly better compared to yesterday Oxygen requirement has improved compared to yesterday No significant events overnight Review of Systems Review of Systems: All systems reviewed & are unremarkable except as noted in Subjective Physical Exam Physical Exam: Constitutional: Alert, oriented to self and place. Not in distress. Respiratory: Decreased air entry bilaterally. Crackles in bilateral upper and lower goldberg. Cardiovascular: RRR, no murmur, no edema Vessels: no JVD or carotid bruit Chest: normal inspection of chest Abdomen: normal bowel sounds, soft, nontender, no hepatosplenomegaly Musculoskeletal: no cyanosis or clubbing, extremities motor strength 5/5 Skin: no rashes, warm and dry normal turgor Neurologic: PERRL, EOMI, accommodation nl, no face palsy, no dysarthria CN's II- XI intact bilaterally and moves all extremities Psychiatric: A+Ox3, euthymic affect Results & Data Results & Data Vital Signs (Past 12 Hours) Vital Signs Temp Pulse Resp BP Pulse Ox O2 Del Method O2 Flow Rate 03/17/24 14:14 36.7 C 77 17 131/67 94 High Flow Nasal Cannula 30 03/17/24 13:42 High Flow Nasal Cannula 30 03/17/24 13:20 95 H 18 91 High Flow Nasal Cannula 30 03/17/24 12:46 73 14 93 High Flow Nasal Cannula 30 03/17/24 11:40 83 22 94 High Flow Nasal Cannula 30 03/17/24 10:11 36.5 C 80 17 114/85 93 High Flow Nasal Cannula 30 03/17/24 07:28 36.4 C L 72 18 117/65 90 High Flow Nasal Cannula 30 03/17/24 07:11 60 22 93 High Flow Nasal Cannula 30 03/17/24 04:28 36.7 C 52 L 20 109/66 100 Nasal Cannula 600 03/17/24 04:04 52 L 24 100 High Flow Nasal Cannula 30 FiO2 03/17/24 14:14 41 03/17/24 13:42 40 03/17/24 13:20 40 03/17/24 12:46 40 03/17/24 11:40 50 03/17/24 10:11 03/17/24 07:28 03/17/24 07:11 45 03/17/24 04:28 03/17/24 04:04 50
--- NOTE | 2024-03-18 07:14 | Pulmonology Progress Note ---
Date of Service March 18, 2024 Assessment & Plan (1) Hypoxia: (2) Pneumonia: Laterality: bilateral Lung location: unspecified part of lung P neumonia type: due to unspecified organism Qualified Code(s): J18.9 - Pneumonia, unspecified organism (3) Abnormal CT scan of lung: Plan Impression: 88-year-old male non-smoker with prior history of COVID now with hypoxemic respiratory failure and diffuse pulmonary infiltrates. His procalcitonin was elevated which raises the possibility of bacterial infection including secondary bacterial infection given his recent viral illness. Noninfectious etiologies including pulmonary hemorrhage and atypical pulmonary edema would also be in the differential. CT chest 03/12/2024 personally reviewed: Diffuse patchy groundglass opacities appreciated bilaterally upper and lower lobes No significant mediastinal lymphadenopathy 2D echo 03/13/2024: EF 70%, moderate concentric LVH, RVSP 40-45 mmHg, RV normal in size and function --Acute hypoxic respiratory failure With diffuse groundglass opacities bilaterally Did complain of diarrhea prior to coming to the hospital, also had hyponatremia on presentation BNP 312 on 03/13/2024 Procalcitonin 5.54 with patient having underlying CKD Bio fire negative for everything, nasal MRSA negative Doppler bilateral lower extremity negative 03/16/2024 Continue with O2 supplementation to keep oxygen saturation between 90-92% --Abnormal chest CT With diffuse alveolar opacities groundglass bilaterally Differential includes infectious etiology like atypical pneumonia, patient is not immunosuppressed to think about PJP Noninfectious etiologies include diffuse alveolar hemorrhage, pulmonary edema, autoimmune disease causing NSIP like pattern Patient is requiring too much oxygen, making him high risk for intubation for bronchoscopy -- DNR/DNI Plan: In/out: +1.3 L since coming to the hospital. Chest x-ray from today still shows patchy bilateral alveolar opacities, mild improvement compared to x-ray 03/15/2024 Would recommend to keep the patient negative balance Continue with levofloxacin and dose it based on the creatinine. Continue with Zosyn Continue with Solu-Medrol 40 mg twice daily Follow sputum culture Case was discussed with RN Please note the above document was generated using voice recognition software. It may contain grammatical, syntax or spelling errors.Any formal questions or concerns about the content, text or information contained within the body of this dictation should be directly addressed to the provider for clarification. Admission and Anticipated Discharge Date Admission Date: March 11, 2024 Subjective Patient seen and examined at bedside. No acute distress, no adverse events overnight overnight He was saturating 88-89% on 30 L, 65% FiO2, increase the flow to 35 L Patient was more alert and answering all the questions appropriately. He denied any nausea vomiting Appetite is fair. Coughing up clear phlegm. Denies any hemoptysis Review of Systems 2 Review of Systems: All systems reviewed & are unremarkable except as noted in Subjective Physical Exam 2 Physical Exam: Constitutional: No acute distress HEENT: EOMI, PERRLA Respiratory system: Decreased air entry bilaterally, no wheeze, no rhonchi, positive crackles appreciated bilaterally anteriorly and posteriorly (improved from before) CVS: S1-S2 positive, no murmurs or gallops Abdomen: Soft, nontender, nondistended, positive bowel sounds x4 Extremities: +2 pulses bilaterally radialis/ dorsalis pedis, no cyanosis, no edema Neuro: Awake alert oriented x3 Psych: Normal mood and affect G/U: Positive Mcdaniels Skin: no rashes, warm and dry Lymphatic: no cervical or axillary lymphadenopathy Results & Data Results & Data Vital Signs (Past 12 Hours) Vital Signs Temp Pulse Pulse Resp BP Pulse Ox O2 Del Method 03/18/24 06:59 56 L 18 94 High Flow Nasal Cannula 03/18/24 03:16 36.4 C L 56 L 16 122/69 91 High Flow Nasal Cannula 03/18/24 03:07 54 L 20 93 High Flow Nasal Cannula 03/18/24 00:25 64 20 55 L High Flow Nasal Cannula 03/18/24 00:24 64 20 93 High Flow Nasal Cannula 03/17/24 22:23 36.5 C 74 16 127/71 95 High Flow Nasal Cannula 03/17/24 21:59 61 03/17/24 19:35 High Flow Nasal Cannula 03/17/24 19:32 90 High Flow Nasal Cannula 03/17/24 19:20 70 18 94 High Flow Nasal Cannula O2 Flow Rate FiO2 03/18/24 06:59 30 65 03/18/24 03:16 30 50 03/18/24 03:07 30 50 03/18/24 00:25 30 03/18/24 00:24 30 55 03/17/24 22:23 30 61 03/17/24 21:59 03/17/24 19:35 03/17/24 19:32 30 50 03/17/24 19:20 30 40 Laboratory Results 03/17/24 06:51 03/17/24 06:51 PG Care Time/CCT Total # of Minutes Spent Total Time Spent with Patient: Total time spent is greater than 50% in coordination of care (as documented) at patient's floor/unit and/or counseling patient: Coding Level of Care Code 48333 SUB INP/OBS CARE 2/35MIN Diagnoses Hypoxia R09.02 Pneumonia J18.9 Laterality: bilateral Lung location: unspecified part of lung Pneumonia type: due to unspecified organism Abnormal CT scan of lung R91.8
--- NOTE | 2024-03-18 07:43 | XRay Report ---
XR chest 1V portable HISTORY: Pneumonia. Hypoxia. COMPARISON: Chest 03/15/2024. FINDINGS: No pneumothorax. No pleural effusions. The cardiac silhouette remains mildly enlarged. Ther e are low lung volumes. Patchy bilateral airspace opacities persist and are consistent with a multifo pawel pneumonia. No acute fractures. IMPRESSION: No significant change in the multifocal bilateral airspace opacities consistent with a pneumonia. ACT 112: Negative or not required by law. Electronically signed by: Luke Shepard M.D. 03/18/2024 7:42 AM
[2024-03-18 07:52] LABS: Hematocrit (blood only) 26.6 % (42.0-52.0); Hemoglobin 9.3 g/dl (14.0-18.0); Mean Corpuscular Hemoglobin 33.6 pg (25.0-34.0); Mean Platelet Volume 9.7 fL (9.4-12.4); Nucleated RBC # (auto) 0.02 K/uL (0.00-0.12); Nucleated RBC % (auto) 0.2 %; Platelet Count 270 K/uL (130-400); RDW Coefficient of Variation 13.6 % (11.5-14.5); RDW Standard Deviation 48.1 fL (36.4-46.3); Red Blood Count 2.77 M/uL (4.70-6.10); White Blood Count 12.18 K/ul (4.8-10.8)
[2024-03-18 08:15] LABS: Calcium 8.4 mg/dl (8.6-10.3); Creatinine Clr Calc Pharmacy 33.3 ml/min; Est GFR (African American) 41.4 ml/min; Est GFR (Non-African American) 35.7 ml/min; Potassium 3.8 mmol/L (3.5-5.1)
[2024-03-18 08:48] LABS: Basophils # (auto) 0.02 K/uL (0.00-0.20); Basophils % (auto) 0.2 %; Echinocytes 1+; Immature Granulocytes # (auto) 0.16 K/uL (0.01-0.20); Immature Granulocytes % (auto) 1.3 %; Lymphocytes # (auto) 0.56 K/uL (1.20-3.40); Lymphocytes % (auto) 4.6 %; Monocytes # (auto) 0.31 K/uL (0.11-0.59); Monocytes % (auto) 2.5 %; Neutrophils # (auto) 11.13 K/uL (1.40-6.50); Neutrophils % (auto) 91.4 %; Polychromasia 1+
--- NOTE | 2024-03-18 15:48 | Hospitalist Progress Note ---
Date of Service March 18, 2024 Assessment & Plan (1) Acute hypoxic respiratory failure: (2) Multifocal pneumonia: (3) Severe sepsis: (4) LASHON (acute kidney injury): (5) Bibi infection, oral: Plan Patient remains critically ill on high flow nasal cannula with ongoing hypoxia. Severe sepsis has resolved, however still on broad-spectrum antibiotics. Sputum culture growing Bibi, concern for Bibi in the mouth and upper airway due to high-dose steroids. Patient requires hospital level care with ongoing IV medications and specialty consultation and interventions. Reviewed pulmonary notes and recommendations Question with that this could possibly be a postobstructive pneumonia. Will discuss further with pulmonary Continue titrate oxygen down as able Do voiding trial now the patient is a little bit improved and able to on hopefully use at least a Mcdaniels catheter Patient's goal is to hopefully eventually get home anticipate he will at the very least need home health. Start fluconazole for Bibi infection Transition to oral steroids Admission and Anticipated Discharge Date Admission Date: March 11, 2024 Subjective Patient states he does not feel short of breath while he is in bed. Does get winded with any type of activity. Physical Exam Physical Exam: Constitutional: Alert, nontoxic HEENT: Mucous membranes dry Lungs: Clear to auscultation, decreased, some coarse breath sounds CV: S1-S2, regular Abdomen: Soft, nontender, nondistended Extremities: No significant edema Neuro: No focal deficits Psych: Cooperative, normal mood Results & Data Results & Data Vital Signs (Past 12 Hours) Vital Signs Temp Pulse Pulse Resp BP Pulse Ox O2 Del Method 03/18/24 15:29 61 18 96 Nasal Cannula 03/18/24 15:10 36.3 C L 69 22 144/68 H 92 High Flow Nasal Cannula 03/18/24 13:02 59 L 20 94 High Flow Nasal Cannula 03/18/24 11:06 51 L 18 95 High Flow Nasal Cannula 03/18/24 11:05 36.4 C L 59 L 20 134/64 98 High Flow Nasal Cannula 03/18/24 09:35 High Flow Nasal Cannula 03/18/24 09:06 53 L 03/18/24 07:41 36.4 C L 70 18 124/69 93 High Flow Nasal Cannula 03/18/24 06:59 56 L 18 94 High Flow Nasal Cannula O2 Flow Rate FiO2 03/18/24 15:29 30 65 03/18/24 15:10 30 65 03/18/24 13:02 30 65 03/18/24 11:06 30 65 03/18/24 11:05 30 66 03/18/24 09:35 30 50 03/18/24 09:06 03/18/24 07:41 30 66 03/18/24 06:59 30 65 Diagnostic Findings Reviewed imaging, laboratory and diagnostic studies. Pertinent findings as below. Hemoglobin 9.3 WBCs 12.1 Creatinine 1.6, Baseline
[2024-03-18] MEDS ORDERED: FLUCONAZOLE 100 MG TAB PO SCH (16:30)
[2024-03-18] MEDS: FLUCONAZOLE 100 MG TAB PO ONE (17:07)
[2024-03-18] MEDS: FUROSEMIDE 40 MG/4 ML VIAL IV ONE (17:07)
[2024-03-18] MEDS: predniSONE 20 MG TAB PO SCH (21:04)
[2024-03-19 06:57] LABS: Basophils # (auto) 0.01 K/uL (0.00-0.20); Basophils % (auto) 0.1 %; Hematocrit (blood only) 27.7 % (42.0-52.0); Hemoglobin 9.7 g/dl (14.0-18.0); Immature Granulocytes # (auto) 0.27 K/uL (0.01-0.20); Immature Granulocytes % (auto) 2.4 %; Lymphocytes # (auto) 0.57 K/uL (1.20-3.40); Mean Corpuscular Hemoglobin 33.8 pg (25.0-34.0); Mean Corpuscular Volume 96.5 fL (80.0-100.0); Mean Platelet Volume 9.8 fL (9.4-12.4); Monocytes # (auto) 0.48 K/uL (0.11-0.59); Monocytes % (auto) 4.2 %; Neutrophils # (auto) 9.98 K/uL (1.40-6.50); Neutrophils % (auto) 88.3 %; Platelet Count 298 K/uL (130-400); RDW Coefficient of Variation 13.5 % (11.5-14.5); Red Blood Count 2.87 M/uL (4.70-6.10); White Blood Count 11.31 K/ul (4.8-10.8)
[2024-03-19 07:15] LABS: BUN Creatinine Ratio 30.5 (10-20); Calcium 8.4 mg/dl (8.6-10.3); Creatinine Clr Calc Pharmacy 29.8 ml/min; Est GFR (African American) 35.9 ml/min; Potassium 3.7 mmol/L (3.5-5.1)
--- NOTE | 2024-03-19 07:15 | Pulmonology Progress Note ---
Date of Service March 19, 2024 Assessment & Plan (1) Hypoxia: (2) Pneumonia: Laterality: bilateral Lung location: unspecified part of lung P neumonia type: due to unspecified organism Qualified Code(s): J18.9 - Pneumonia, unspecified organism (3) Abnormal CT scan of lung: Plan Impression: 88-year-old male non-smoker with prior history of COVID now with hypoxemic respiratory failure and diffuse pulmonary infiltrates. His procalcitonin was elevated which raises the possibility of bacterial infection including secondary bacterial infection given his recent viral illness. Noninfectious etiologies including pulmonary hemorrhage and atypical pulmonary edema would also be in the differential. CT chest 03/12/2024 personally reviewed: Diffuse patchy groundglass opacities appreciated bilaterally upper and lower lobes No significant mediastinal lymphadenopathy 2D echo 03/13/2024: EF 70%, moderate concentric LVH, RVSP 40-45 mmHg, RV normal in size and function --Acute hypoxic respiratory failure With diffuse groundglass opacities bilaterally Did complain of diarrhea prior to coming to the hospital, also had hyponatremia on presentation BNP 312 on 03/13/2024 Procalcitonin 5.54 with patient having underlying CKD Bio fire negative for everything, nasal MRSA negative Doppler bilateral lower extremity negative 03/16/2024 Continue with O2 supplementation to keep oxygen saturation between 90-92% --Abnormal chest CT With diffuse alveolar opacities groundglass bilaterally Differential includes infectious etiology like atypical pneumonia, patient is not immunosuppressed to think about PJP Noninfectious etiologies include diffuse alveolar hemorrhage, pulmonary edema, autoimmune disease causing NSIP like pattern Patient is requiring too much oxygen, making him high risk for intubation for bronchoscopy -- DNR/DNI Plan: In/out: -921 since coming to the hospital. Would recommend to continue keeping the patient negative balance Continue with levofloxacin based on the creatinine. Continue with Zosyn Continue with Prednisone Sputum culture is growing Bibi which is likely colonizer Case was discussed with RN Please note the above document was generated using voice recognition software. It may contain grammatical, syntax or spelling errors.Any formal questions or concerns about the content, text or information contained within the body of this dictation should be directly addressed to the provider for clarification. Admission and Anticipated Discharge Date Admission Date: March 11, 2024 Subjective Patient seen and examined at bedside. No acute distress, no adverse events overnight Says that he is feeling better. Denies any nausea vomiting, appetite is fair Has been diuresing well. Was saturating 93-94% on 35 L, 55% FiO2. Review of Systems 2 Review of Systems: All systems reviewed & are unremarkable except as noted in Subjective Physical Exam 2 Physical Exam: Constitutional: No acute distress HEENT: EOMI, PERRLA Respiratory system: Decreased air entry bilaterally, no wheeze, no rhonchi, positive crackles appreciated bilaterally anteriorly and posteriorly CVS: S1-S2 positive, no murmurs or gallops Abdomen: Soft, nontender, nondistended, positive bowel sounds x4 Extremities: +2 pulses bilaterally radialis/ dorsalis pedis, no cyanosis, no edema Neuro: Awake alert oriented x3 Psych: Normal mood and affect G/U: Positive Mcdaniels Skin: no rashes, warm and dry Lymphatic: no cervical or axillary lymphadenopathy Results & Data Results & Data Vital Signs (Past 12 Hours) Vital Signs Temp Pulse Pulse Resp BP Pulse Ox O2 Del Method 03/19/24 07:01 36.6 C 56 L 20 154/71 H 95 High Flow Nasal Cannula 03/19/24 06:52 55 L 20 97 High Flow Nasal Cannula 03/19/24 03:28 61 20 96 High Flow Nasal Cannula 03/19/24 03:14 36.6 C 54 L 16 129/74 97 High Flow Nasal Cannula 03/19/24 01:29 55 L 19 97 High Flow Nasal Cannula 03/18/24 23:00 57 L 20 98 High Flow Nasal Cannula 03/18/24 22:34 36.5 C 58 L 16 125/70 96 High Flow Nasal Cannula 03/18/24 22:04 55 L 03/18/24 20:15 Free Flow/Blow-by 03/18/24 19:21 36.6 C 59 L 22 136/70 96 High Flow Nasal Cannula 03/18/24 19:19 57 L 20 93 High Flow Nasal Cannula 03/18/24 19:17 57 L 20 93 High Flow Nasal Cannula O2 Flow Rate FiO2 03/19/24 07:01 35 55 03/19/24 06:52 35 65 03/19/24 03:28 35 65 03/19/24 03:14 35 65 03/19/24 01:29 35 65 03/18/24 23:00 34 65 03/18/24 22:34 35 65 03/18/24 22:04 07/10/24 20:15 03/18/24 19:21 35 64 03/18/24 19:19 35 65 03/18/24 19:17 35 65 Laboratory Results 03/19/24 06:31 PG Care Time/CCT Total # of Minutes Spent Total Time Spent with Patient: Total time spent is greater than 50% in coordination of care (as documented) at patient's floor/unit and/or counseling patient: Coding Level of Care Code 19411 SUB INP/OBS CARE 2/35MIN Diagnoses Hypoxia R09.02 Pneumonia J18.9 Laterality: bilateral Lung location: unspecified part of lung Pneumonia type: due to unspecified organism Abnormal CT scan of lung R91.8
--- NOTE | 2024-03-19 15:52 | Hospitalist Progress Note ---
Date of Service March 19, 2024 Assessment & Plan (1) Acute hypoxic respiratory failure: (2) Multifocal pneumonia: (3) Bibi infection, oral: Plan Patient continues to be hypoxic requiring high flow nasal cannula to maintain adequate O2 saturations. Titrate high flow down as able, able to be titrated to 20 L and 35% today. Patient has been on antibiotics since 03/11/2024, completed the full course of antibiotics for possible bacterial pneumonia, discontinue all antibiotics and continue to observe off antibiotics Continue on Diflucan for oral candidiasis possible thrush, low suspicion for Bibi pneumonia, probably colonized or is resulting of his steroid use. Patient's renal function is plateaued. Suspect patient may have a component of chronic renal disease will continue to monitor intermittently Hemoglobin has been stable continue to monitor intermittently Continue prednisone Communication with case management, evaluate for possible LTAC placement Long and extensive conversation with patient, daughter and at bedside explaining his condition, and need for ongoing rehabilitation once he has improved. 58 minutes spent in total care today. Admission and Anticipated Discharge Date Admission Date: March 11, 2024 Subjective No acute issues overnight. Tolerating his meals. Still on high flow oxygen Physical Exam Physical Exam: Constitutional: Alert HEENT: Mucous membranes moist on high flow nasal cannula. Lungs: Decreased, coarse breath sounds CV: S1-S2, regular Abdomen: Soft, nontender, nondistended Extremities: No significant edema Neuro: No focal deficits, generalized weakness Psych: Cooperative, normal mood Results & Data Results & Data Vital Signs (Past 12 Hours) Vital Signs Temp Pulse Pulse Resp BP Pulse Ox O2 Del Method 03/19/24 14:57 36.9 C 56 L 20 136/71 90 High Flow Nasal Cannula 03/19/24 12:47 59 L 20 99 High Flow Nasal Cannula 03/19/24 11:16 55 L 20 94 High Flow Nasal Cannula 03/19/24 10:37 54 L 20 124/65 90 High Flow Nasal Cannula 03/19/24 09:45 High Flow Nasal Cannula 03/19/24 07:18 52 L 03/19/24 07:01 36.6 C 56 L 20 154/71 H 95 High Flow Nasal Cannula 03/19/24 06:52 55 L 20 97 High Flow Nasal Cannula O2 Flow Rate FiO2 03/19/24 14:57 03/19/24 12:47 30 50 03/19/24 11:16 35 50 03/19/24 10:37 07/11/24 09:45 35 50 03/19/24 07:18 03/19/24 07:01 35 55 03/19/24 06:52 35 65 Diagnostic Findings Reviewed imaging, laboratory and diagnostic studies. Pertinent findings as below. Hemoglobin 9.7, improving Creatinine 1.9, stable
[2024-03-19] MEDS: FLUCONAZOLE 100 MG TAB PO SCH (16:07)
--- NOTE | 2024-03-20 08:43 | Pulmonology Progress Note ---
Date of Service March 20, 2024 Assessment & Plan (1) Hypoxia: (2) Pneumonia: Laterality: bilateral Lung location: unspecified part of lung Pneumonia type: due to unspecified organism Qualified Code(s): J18.9 - Pneumonia, unspecified organism (3) Abnormal CT scan of lung: Plan Impression: 88-year-old male non-smoker with prior history of COVID now with hypoxemic respiratory failure and diffuse pulmonary infiltrates. His procalcitonin was elevated which raises the possibility of bacterial infection including secondary bacterial infection given his recent viral illness. Noninfectious etiologies including pulmonary hemorrhage and atypical pulmonary edema would also be in the differential. CT chest 03/12/2024 personally reviewed: Diffuse patchy groundglass opacities appreciated bilaterally upper and lower lobes No significant mediastinal lymphadenopathy 2D echo 03/13/2024: EF 70%, moderate concentric LVH, RVSP 40-45 mmHg, RV normal in size and function --Acute hypoxic respiratory failure With diffuse groundglass opacities bilaterally Did complain of diarrhea prior to coming to the hospital, also had hyponatremia on presentation BNP 312 on 03/13/2024 Procalcitonin 5.54 with patient having underlying CKD Bio fire negative for everything, nasal MRSA negative Doppler bilateral lower extremity negative 03/16/2024 Continue with O2 supplementation to keep oxygen saturation between 90-92% S/p antibiotic Zosyn and levofloxacin --Abnormal chest CT With diffuse alveolar opacities groundglass bilaterally Differential includes infectious etiology like atypical pneumonia, patient is not immunosuppressed to think about PJP Noninfectious etiologies include diffuse alveolar hemorrhage, pulmonary edema, autoimmune disease causing NSIP like pattern Patient is requiring too much oxygen, making him high risk for intubation for bronchoscopy -- DNR/DNI Plan: In/out: -921 since coming to the hospital. Would recommend to continue keeping the patient negative balance Continue with Prednisone. Can go down to 40 mg on a daily basis. Sputum culture is growing Bibi which is likely colonizer Out of the bed to chair Case was discussed with RN at bedside Please note the above document was generated using voice recognition software. It may contain grammatical, syntax or spelling errors.Any formal questions or concerns about the content, text or information contained within the body of this dictation should be directly addressed to the provider for clarification. Admission and Anticipated Discharge Date Admission Date: March 11, 2024 Subjective Patient seen and examined at bedside. No acute distress, no adverse events overnight Was saturating 90% on 30 L, 65% FiO2 at rest Overall he says he is feeling better, still gets really hypoxic on minimal exertion Appetite is fair No nausea or vomiting Waking up clear phlegm. Denies any hemoptysis Has been afebrile Review of Systems Review of Systems: All systems reviewed & are unremarkable except as noted in Subjective Physical Exam Physical Exam: Constitutional: No acute distress HEENT: EOMI, PERRLA Respiratory system: Decreased air entry bilaterally, no wheeze, no rhonchi, positive crackles appreciated bilaterally anteriorly and posteriorly CVS: S1-S2 positive, no murmurs or gallops Abdomen: Soft, nontender, nondistended, positive bowel sounds x4 Extremities: +2 pulses bilaterally radialis/ dorsalis pedis, no cyanosis, no edema Neuro: Awake alert oriented x3 Psych: Normal mood and affect G/U: Positive Mcdaniels Skin: no rashes, warm and dry Lymphatic: no cervical or axillary lymphadenopathy Results & Data Results & Data Vital Signs (Past 12 Hours) Vital Signs Temp Pulse Pulse Resp BP BP Pulse Ox 03/20/24 07:43 53 L 03/20/24 07:43 03/20/24 07:26 52 L 16 93 03/20/24 06:58 36.3 C L 51 L 22 130/68 92 03/20/24 02:54 36.7 C 55 L 18 149/74 H 91 03/20/24 01:54 53 L 14 97 03/19/24 23:30 59 L 14 90 03/19/24 22:53 36.4 C L 57 L 18 147/76 H 91 O2 Del Method O2 Flow Rate FiO2 03/20/24 07:43 03/20/24 07:43 High Flow Nasal Cannula 03/20/24 07:26 High Flow Nasal Cannula 30 65 03/20/24 06:58 High Flow Nasal Cannula 30 03/20/24 02:54 High Flow Nasal Cannula 03/20/24 01:54 High Flow Nasal Cannula 20 45 03/19/24 23:30 High Flow Nasal Cannula 30 65 03/19/24 22:53 High Flow Nasal Cannula 20 PG Care Time/CCT Total # of Minutes Spent Total Time Spent with Patient: Total time spent is greater than 50% in coordination of care (as documented) at patient's floor/unit and/or counseling patient: Coding Level of Care Code 27167 SUB INP/OBS CARE 2MIN Diagnoses Hypoxia R09.02 Pneumonia J18.9 Laterality: bilateral Lung location: unspecified part of lung Pneumonia type: due to unspecified organism Abnormal CT scan of lung R91.8
--- NOTE | 2024-03-20 10:47 | XRay Report ---
XR chest 1V portable HISTORY: Pneumonia. f/u COMPARISON: Chest 03/18/2024. FINDINGS: No pneumothorax. No pleural effusions. There are low lung volumes. The heart remains mildly enlarged. Multifocal patchy bilateral airspace opacities are again noted. These have slightly improv ed. IMPRESSION: Slight improvement in the multifocal patchy bilateral airspace opacities consistent with a pneumonia. ACT 112: Negative or not required by law. Electronically signed by: Luke Shepard M.D. 03/20/2024 10:45 AM
--- NOTE | 2024-03-20 13:33 | Hospitalist Progress Note ---
Date of Service March 20, 2024 Assessment & Plan (1) Acute hypoxic respiratory failure: (2) Multifocal pneumonia: (3) Bibi infection, oral: Plan Patient with acute hypoxic respiratory failure continues to be dependent on high flow nasal cannula. Completed course of antibiotics Continue steroids Titrate oxygen down as able Increase activity as able Continue to pursue options for rehabilitation Check basic labs in a.m. d/c tele Admission and Anticipated Discharge Date Admission Date: March 11, 2024 Subjective No acute events overnight. With sleep did need to increase his flow and concentration of oxygen on the high flow nasal cannula. Patient denies any new symptoms Physical Exam Physical Exam: Constitutional: Alert HEENT: Mucous membranes moist., High flow nasal cannula Lungs: Decreased, prolonged expiratory phase, some coarse rhonchi CV: S1-S2, regular Abdomen: Soft, nontender, nondistended Extremities: No significant edema Neuro: No focal deficits Psych: Cooperative, normal mood Results & Data Results & Data Vital Signs (Past 12 Hours) Vital Signs Temp Pulse Pulse Resp BP BP Pulse Ox 03/20/24 10:40 36.3 C L 56 L 22 138/67 94 03/20/24 07:43 53 L 03/20/24 07:43 03/20/24 07:26 52 L 16 93 03/20/24 06:58 36.3 C L 51 L 22 130/68 92 03/20/24 02:54 36.7 C 55 L 18 149/74 H 91 03/20/24 01:54 53 L 14 97 O2 Del Method O2 Flow Rate FiO2 03/20/24 10:40 High Flow Nasal Cannula 30 03/20/24 07:43 03/20/24 07:43 High Flow Nasal Cannula 03/20/24 07:26 High Flow Nasal Cannula 30 65 03/20/24 06:58 High Flow Nasal Cannula 30 03/20/24 02:54 High Flow Nasal Cannula 03/20/24 01:54 High Flow Nasal Cannula 20 45 Diagnostic Findings Intake and output remains negative
[2024-03-21 06:14] LABS: Hematocrit (blood only) 28.7 % (42.0-52.0); Hemoglobin 10.1 g/dl (14.0-18.0); Mean Corpuscular Hgb Conc 35.2 g/dL (32.0-36.0); Mean Corpuscular Volume 96.6 fL (80.0-100.0); Mean Platelet Volume 9.6 fL (9.4-12.4); Nucleated RBC # (auto) 0.02 K/uL (0.00-0.12); Nucleated RBC % (auto) 0.2 %; Platelet Count 311 K/uL (130-400); RDW Coefficient of Variation 13.7 % (11.5-14.5); RDW Standard Deviation 48.6 fL (36.4-46.3); Red Blood Count 2.97 M/uL (4.70-6.10)
[2024-03-21 06:19] LABS: Calcium 8.1 mg/dl (8.6-10.3); Creatinine Clr Calc Pharmacy 28.3 ml/min; Est GFR (African American) 37.4 ml/min; Est GFR (Non-African American) 32.2 ml/min; Magnesium 2.3 mg/dl (1.7-2.4); Potassium 4.1 mmol/L (3.5-5.1)
[2024-03-21 08:05] LABS: Appearance Urine Clear (Clear); Bacteria Urine Automated None Seen (None Seen); Bilirubin Urine Negative (Negative); Blood Urine Negative (Negative); Cast Urine Automated 0-2 /lpf (0-2); Color Urine Yellow; Epithelial Cell Urine Auto 0-2 /hpf (0-2); Glucose Urine UA Negative (Negative); Ketones Urine Negative (Negative); Leukocyte Esterase Urine Negative (Negative); Nitrite Urine Negative (Negative); Protein Urine Trace (Negative); RBC Urine Automated 0-2 /hpf (0-2); Specific Gravity Urine 1.018 (1.000-1.030); Urobilinogen Urine Negative (Negative); WBC Urine Automated 0-5 /hpf (0-5)
[2024-03-21 08:27] LABS: Base Excess ABG -2.7 mEq/L (-9-1.8); HCO3 ABG 20 mmol/L (19-24); Oxygen Saturation ABG 99.1 % (90-95); PCO2 ABG 30 mmHg (35-46); PO2 ABG 164 mmHg (80-95); pH ABG 7.44 (7.35-7.45)
[2024-03-21 08:30] LABS: Allen Test Pos (Pos)
--- NOTE | 2024-03-21 11:20 | Hospitalist Progress Note ---
Date of Service March 21, 2024 Assessment & Plan (1) Acute hypoxic respiratory failure: (2) Multifocal pneumonia: (3) Bibi infection, oral: (4) Delirium due to another medical condition: Plan Patient remains critically ill on high flow oxygen, flow was increased due to acute delirium is multifactorial, due to his general medical condition, hospital delirium, steroid psychosis. UA, ABG performed this morning in the setting of delirium. Due to his respiratory failure, hesitant to use medications to sedate patient with his agitation, continue to reassure and redirect. Laboratory studies overall stable Continue to titrate oxygen as able Continue to attempt therapies as able Updated [id number], Oliva, via phone, Admission and Anticipated Discharge Date Admission Date: March 11, 2024 Subjective Patient up most the night, restless and agitated. Pulling-oxygen off. Flow is increased because would not keep the nasal cannula in place. Physical Exam Physical Exam: Constitutional: Alert, confused, nontoxic HEENT: Mucous membranes moist. Lungs: Decreased breath sounds with some coarse rhonchi CV: S1-S2, regular Abdomen: Soft, nontender, nondistended Extremities: No significant edema Neuro: No focal deficits, generalized weakness Psych: Cooperative, normal mood Results & Data Results & Data Vital Signs (Past 12 Hours) Vital Signs Temp Pulse Resp BP BP Pulse Ox O2 Del Method 03/21/24 11:10 81 20 High Flow Nasal Cannula 03/21/24 11:07 36.3 C L 63 20 147/73 H 90 High Flow Nasal Cannula 03/21/24 07:19 55 L 18 96 High Flow Nasal Cannula 03/21/24 07:15 High Flow Nasal Cannula 03/21/24 07:09 55 L 18 96 High Flow Nasal Cannula 03/21/24 07:01 36.2 C L 66 26 H 178/72 H 92 High Flow Nasal Cannula 03/21/24 03:45 76 18 93 High Flow Nasal Cannula 03/21/24 02:28 36.5 C 62 18 150/63 H 89 L High Flow Nasal Cannula 03/20/24 23:32 62 18 90 High Flow Nasal Cannula O2 Flow Rate FiO2 03/21/24 11:10 40 70 03/21/24 11:07 40 03/21/24 07:19 50 90 03/21/24 07:15 03/21/24 07:09 50 90 07/13/24 07:01 50 03/21/24 03:45 40 80 03/21/24 02:28 35 03/20/24 23:32 40 80 Diagnostic Findings [facility] Creatinine 1.8, improved Hemoglobin 10.1 WBCs 12.5 increase due to steroids Urinalysis unremarkable for infection ABG reviewed, no evidence of hypercarbia
--- NOTE | 2024-03-21 11:46 | Pulmonology Progress Note ---
Date of Service March 21, 2024 Assessment & Plan (1) Hypoxia: (2) Pneumonia: Laterality: bilateral Lung location: unspecified part of lung P neumonia type: due to unspecified organism Qualified Code(s): J18.9 - Pneumonia, unspecified organism (3) Abnormal CT scan of lung: Plan Impression: 88-year-old male non-smoker with prior history of COVID now with hypoxemic respiratory failure and diffuse pulmonary infiltrates. His procalcitonin was elevated which raises the possibility of bacterial infection including secondary bacterial infection given his recent viral illness. Noninfectious etiologies including pulmonary hemorrhage and atypical pulmonary edema would also be in the differential. CT chest 03/12/2024 personally reviewed: Diffuse patchy groundglass opacities appreciated bilaterally upper and lower lobes No significant mediastinal lymphadenopathy 2D echo 03/13/2024: EF 70%, moderate concentric LVH, RVSP 40-45 mmHg, RV normal in size and function --Acute hypoxic respiratory failure With diffuse groundglass opacities bilaterally Did complain of diarrhea prior to coming to the hospital, also had hyponatremia on presentation BNP 312 on 03/13/2024 Procalcitonin 5.54 with patient having underlying CKD Bio fire negative for everything, nasal MRSA negative Doppler bilateral lower extremity negative 03/16/2024 Continue with O2 supplementation to keep oxygen saturation between 90-92% S/p antibiotic Zosyn and levofloxacin --Abnormal chest CT With diffuse alveolar opacities groundglass bilaterally Differential includes infectious etiology like atypical pneumonia, patient is not immunosuppressed to think about PJP Noninfectious etiologies include diffuse alveolar hemorrhage, pulmonary edema, autoimmune disease causing NSIP like pattern Patient is requiring too much oxygen, making him high risk for intubation for bronchoscopy -- DNR/DNI Plan: In/out: -2 L since coming to the hospital. Patient seems to be aspirating, would recommend to keep him n.p.o. Get swallow eval Follow-up chest x-ray from today Go down and present resolved to 40 mg on a daily basis Sputum culture is growing Bibi which is likely colonizer Case was discussed with RN at bedside Please note the above document was generated using voice recognition software. It may contain grammatical, syntax or spelling errors.Any formal questions or concerns about the content, text or information contained within the body of this dictation should be directly addressed to the provider for clarification. Admission and Anticipated Discharge Date Admission Date: March 11, 2024 Subjective Patient seen and examined at bedside. He was coughing actively He was having his lunch and seem to be aspirating with each bite Overnight he was delirious, pulling out his oxygen He was saturating only 84-95% on 40 L, 70% FiO2, I went up to 100% Review of Systems 2 Review of Systems: All systems reviewed & are unremarkable except as noted in Subjective Physical Exam 2 Physical Exam: Constitutional: No acute distress HEENT: EOMI, PERRLA Respiratory system: Decreased air entry bilaterally, no wheeze, no rhonchi, positive crackles appreciated bilaterally anteriorly and posteriorly CVS: S1-S2 positive, no murmurs or gallops Abdomen: Soft, nontender, nondistended, positive bowel sounds x4 Extremities: +2 pulses bilaterally radialis/ dorsalis pedis, no cyanosis, no edema Neuro: Awake alert oriented x3 Psych: Normal mood and affect G/U: No Mcdaniels Skin: no rashes, warm and dry Lymphatic: no cervical or axillary lymphadenopathy Results & Data Results & Data Vital Signs (Past 12 Hours) Vital Signs Temp Pulse Resp BP BP Pulse Ox O2 Del Method 03/21/24 11:10 81 20 High Flow Nasal Cannula 03/21/24 11:07 36.3 C L 63 20 147/73 H 90 High Flow Nasal Cannula 03/21/24 07:19 55 L 18 96 High Flow Nasal Cannula 03/21/24 07:15 High Flow Nasal Cannula 03/21/24 07:09 55 L 18 96 High Flow Nasal Cannula 03/21/24 07:01 36.2 C L 66 26 H 178/72 H 92 High Flow Nasal Cannula 03/21/24 03:45 76 18 93 High Flow Nasal Cannula 03/21/24 02:28 36.5 C 62 18 150/63 H 89 L High Flow Nasal Cannula O2 Flow Rate FiO2 03/21/24 11:10 40 70 03/21/24 11:07 40 03/21/24 07:19 50 90 03/21/24 07:15 03/21/24 07:09 50 90 03/21/24 07:01 50 03/21/24 03:45 40 80 03/21/24 02:28 35 Laboratory Results 03/21/24 05:34 03/21/24 05:34 PG Care Time/CCT Total # of Minutes Spent Total Time Spent with Patient: Total time spent is greater than 50% in coordination of care (as documented) at patient's floor/unit and/or counseling patient: Coding Level of Care Code 38048 SUB INP/OBS CARE 350MIN Diagnoses Hypoxia R09.02 Pneumonia J18.9 Laterality: bilateral Lung location: unspecified part of lung Pneumonia type: due to unspecified organism Abnormal CT scan of lung R91.8
--- NOTE | 2024-03-21 13:05 | XRay Report ---
SINGLE VIEW CHEST CLINICAL HISTORY: Follow-up pneumonia FINDINGS: An AP, portable, upright chest radiograph is compared to study dated 03/20/2024 and correlat ed with chest CT dated 03/12/2024. The heart is enlarged. There is pulmonary vascular congestion. Multi focal airspace consolidation is again seen throughout both lungs. This is similar to yesterday. Small pleural effusions are noted. No pneumothorax is seen. The skeletal structures are osteopenic. The [place] thorax is grossly intact. IMPRESSION: 1. Cardiomegaly with pulmonary vascular congestion. 2. Multifocal airspace consolidation has not significantly changed from yesterday. 3. Small pleural effusions. ACT 112: Negative or not required by law. Electronically signed by: Tico Keating M.D. 03/21/2024 1:03 PM
--- NOTE | 2024-03-21 19:40 | Communication Note ---
Date of Service: March 21, 2024
[2024-03-21] MEDS: METOPROLOL TARTRATE 1 MG/ML VIAL IV STA (20:55)
[2024-03-22] MEDS: FUROSEMIDE 40 MG/4 ML VIAL IV ONE (07:53)
--- NOTE | 2024-03-22 08:40 | XRay Report ---
XR chest 1V portable HISTORY: Respiratory distress. COMPARISON: Chest 03/21/2024. FINDINGS: The heart is enlarged. There is pulmonary vascular congestion. Multifocal airspace consolid ation is again seen throughout both lungs. This is similar to yesterday. Small pleural effusions are noted. No pneumothorax is seen. The skeletal structures are osteopenic. The bony thorax is grossly in tact. IMPRESSION: 1. Cardiomegaly with pulmonary vascular congestion. 2. Multifocal airspace consolidation has not significantly changed from yesterday. 3. Small pleural effusions. ACT 112: Negative or not required by law. Electronically signed by: Luke Shepard M.D. 03/22/2024 8:39 AM
--- NOTE | 2024-03-22 10:01 | Pulmonology Progress Note ---
Date of Service March 22, 2024 Assessment & Plan (1) Hypoxia: (2) Pneumonia: Laterality: bilateral Lung location: unspecified part of lung P neumonia type: due to unspecified organism Qualified Code(s): J18.9 - Pneumonia, unspecified organism (3) Abnormal CT scan of lung: Plan Impression: 88-year-old male non-smoker with prior history of COVID now with hypoxemic respiratory failure and diffuse pulmonary infiltrates. His procalcitonin was elevated which raises the possibility of bacterial infection including secondary bacterial infection given his recent viral illness. Noninfectious etiologies including pulmonary hemorrhage and atypical pulmonary edema would also be in the differential. CT chest 03/12/2024 personally reviewed: Diffuse patchy groundglass opacities appreciated bilaterally upper and lower lobes No significant mediastinal lymphadenopathy 2D echo 03/13/2024: EF 70%, moderate concentric LVH, RVSP 40-45 mmHg, RV normal in size and function --Acute hypoxic respiratory failure With diffuse groundglass opacities bilaterally Did complain of diarrhea prior to coming to the hospital, also had hyponatremia on presentation BNP 312 on 03/13/2024 Procalcitonin 5.54 with patient having underlying CKD Bio fire negative for everything, nasal MRSA negative Doppler bilateral lower extremity negative 03/16/2024 Continue with O2 supplementation to keep oxygen saturation between 90-92% S/p antibiotic Zosyn and levofloxacin --Abnormal chest CT With diffuse alveolar opacities groundglass bilaterally Differential includes infectious etiology like atypical pneumonia, patient is not immunosuppressed to think about PJP Noninfectious etiologies include diffuse alveolar hemorrhage, pulmonary edema, autoimmune disease causing NSIP like pattern Patient is requiring too much oxygen, making him high risk for intubation for bronchoscopy -- DNR/DNI Plan: In/out: -4 L since coming to the hospital. Chest x-ray does not show any significant change from before. Diffuse bilateral alveolar opacities persist Patient seems to be aspirating, would recommend to keep him n.p.o. Follow-up swallow eval Continue with prednisone 40 mg on a daily basis Sputum culture is growing Bibi which is likely colonizer Case was discussed with RN at bedside Please note the above document was generated using voice recognition software. It may contain grammatical, syntax or spelling errors.Any formal questions or concerns about the content, text or information contained within the body of this dictation should be directly addressed to the provider for clarification. Admission and Anticipated Discharge Date Admission Date: March 11, 2024 Subjective Patient seen and examined at bedside. No acute distress, no adverse events overnight Patient was saturating 94 to 95% on 40 L, 65% high flow, went down to 55% He was lethargic but easily arousable and answering questions appropriately Denies any chest pain, bringing up clear phlegm. Review of Systems 2 Review of Systems: All systems reviewed & are unremarkable except as noted in Subjective Physical Exam 2 Physical Exam: Constitutional: No acute distress HEENT: EOMI, PERRLA Respiratory system: Decreased air entry bilaterally, no wheeze, no rhonchi, positive crackles appreciated bilaterally anteriorly and posteriorly CVS: S1-S2 positive, no murmurs or gallops Abdomen: Soft, nontender, nondistended, positive bowel sounds x4 Extremities: +2 pulses bilaterally radialis/ dorsalis pedis, no cyanosis, no edema Neuro: Awake alert oriented x3 Psych: Normal mood and affect G/U: No Mcdaniels Skin: no rashes, warm and dry Lymphatic: no cervical or axillary lymphadenopathy Results & Data Results & Data Vital Signs (Past 12 Hours) Vital Signs Temp Pulse Pulse Resp BP BP Pulse Ox 03/22/24 08:00 51 L 03/22/24 08:00 03/22/24 07:35 36.4 C L 64 16 168/71 H 93 03/22/24 07:13 52 L 18 98 03/22/24 06:32 92 03/22/24 06:18 84 L 03/22/24 06:15 76 L 03/22/24 02:26 64 18 96 03/22/24 02:18 36.6 C 66 18 165/73 H 94 03/21/24 23:08 66 18 91 03/21/24 22:29 36.4 C L 61 18 160/76 H 95 03/21/24 22:29 94 O2 Del Method O2 Flow Rate FiO2 03/22/24 08:00 03/22/24 08:00 High Flow Nasal Cannula 03/22/24 07:35 High Flow Nasal Cannula 40 80 03/22/24 07:13 40 80 03/22/24 06:32 High Flow Nasal Cannula 60 100 03/22/24 06:18 High Flow Nasal Cannula 40 100 03/22/24 06:15 High Flow Nasal Cannula 40 70 03/22/24 02:26 High Flow Nasal Cannula 40 70 03/22/24 02:18 High Flow Nasal Cannula 40.0 03/21/24 23:08 High Flow Nasal Cannula 40 70 03/21/24 22:29 High Flow Nasal Cannula 03/21/24 22:29 High Flow Nasal Cannula 40 70 Laboratory Results 03/21/24 05:34 03/21/24 05:34 PG Care Time/CCT Total # of Minutes Spent Total Time Spent with Patient: Total time spent is greater than 50% in coordination of care (as documented) at patient's floor/unit and/or counseling patient: Coding Level of Care Code 45699 SUB INP/OBS CARE 2/35MIN Diagnoses Hypoxia R09.02 Pneumonia J18.9 Laterality: bilateral Lung location: unspecified part of lung Pneumonia type: due to unspecified organism Abnormal CT scan of lung R91.8
[2024-03-22] MEDS: predniSONE 20 MG TAB PO SCH (12:37)
[2024-03-22] MEDS ORDERED: ENOXAPARIN 1 MG/KG SQ SCH (14:00)
[2024-03-22] MEDS: METOPROLOL TARTRATE 1 MG/ML VIAL IV SCH (14:10)
[2024-03-22] MEDS: MoRPHine SULFATE 2 MG/ML CARP IV PRN (14:10)
[2024-03-22] MEDS: ENOXAPARIN 80 MG/0.8 ML SYR SQ SCH (15:34)
--- NOTE | 2024-03-22 15:45 | Hospitalist Progress Note ---
Date of Service March 22, 2024 Assessment & Plan (1) Acute hypoxic respiratory failure: (2) Atrial fibrillation with rapid ventricular response: (3) Aspiration into airway: (4) Multifocal pneumonia: (5) Bibi infection, oral: (6) Delirium due to another medical condition: Plan Patient remains critically ill dependent on high flow nasal cannula. Rapidly desaturates with any type of activity or even coughing. Now with aspiration and new onset atrial fibrillation. Patient states he is uncomfortable and is asking to be kept comfortable and asking for high flow oxygen to be removed. Extensive conversation with the patient, and extended family at bedside as well as son and [id number] on the phone. We discussed comfort measures only. We also discussed trying to control his heart rate and give him a little bit of medicine to help with him his discomfort and allow him to tolerate the high flow oxygen. We also discussed feeding since he is NPO. We discussed specifically TPN feeding since we would not be able to do enteral feeds through an NG tube because of the high flow nasal cannula. During this conversation the patient remediated multiple times that he just wants to be kept comfortable and let things go. After extensive conversation with the family and everyone understanding options family preferred to try and control his heart rate and give a little bit of medicine to help control his discomfort and see if that would change his mind at all. This would also allow time for the son and [id number] who are out of town to get to the hospital to see the patient. Everyone is aware that if he comes off the high flow oxygen his time would most likely be measured in hours. With this understanding the patient was agreeable and deferred decision-making to his son. Patient n.p.o. Transition to IV medications Scheduled IV metoprolol for rate control as well as as needed metoprolol Continue on high flow oxygen to maintain adequate O2 sat Low-dose IV morphine for discomfort every 2 hours as needed. Laboratory studies in the a.m. Full dose subcutaneous Lovenox based on renal function for stroke prophylaxis in the setting of atrial fibrillation Family to continue to discuss with patient overall goals of care. Patient already is DNR DNI and quite clear he would not want artificial feedings. Family deciding whether to transition even further to comfort care. Will update medical team if wishes change 65 minutes spent in care of the patient, communication with nursing, communication with family, review of records, coordinating care Admission and Anticipated Discharge Date Admission Date: March 11, 2024 Subjective Events of yesterday afternoon noted. Noted to be choking with his meal in the evening. Concern for aspiration. Seen while speech at the bedside earlier today. Patient significant choking and coughing with sips of water. Recommending strict n.p.o. by speech. Acute issue notified by nursing that patient now in atrial fibrillation.This is new for him. Patient's and extended family at bedside this afternoon. Patient is stating that he just wants to be left alone and allowed to "float away." Asking to have the high flow oxygen removed. Physical Exam Physical Exam: Constitutional: Alert. Moderate distress, appears uncomfortable HEENT: Mucous membranes moist. Lungs: Decreased breath sounds, coarse rhonchi few scattered wheezes CV: S1-S2, tachycardic, irregular irregular Abdomen: Soft, nontender, nondistended Extremities: No significant edema Neuro: No focal deficits, generalized weakness, more oriented today Psych: Anxious, Results & Data Results & Data Vital Signs (Past 12 Hours) Vital Signs Temp Pulse Pulse Resp BP BP BP 03/22/24 15:32 107 H 20 03/22/24 14:26 97 H 133/70 03/22/24 14:10 125 H 112/73 03/22/24 14:09 112/73 03/22/24 12:32 117 H 20 03/22/24 12:29 117 H 20 03/22/24 11:10 74 17 03/22/24 10:55 36.4 C L 88 18 156/88 H 03/22/24 08:00 51 L 03/22/24 08:00 03/22/24 07:35 36.4 C L 64 16 168/71 H 03/22/24 07:13 52 L 18 03/22/24 06:32 03/22/24 06:18 03/22/24 06:15 Pulse Ox O2 Del Method O2 Flow Rate FiO2 03/22/24 15:32 97 High Flow Nasal Cannula 45 80 03/22/24 14:26 03/22/24 14:10 03/22/24 14:09 03/22/24 12:32 92 High Flow Nasal Cannula 60 100 03/22/24 12:29 92 High Flow Nasal Cannula 60 100 03/22/24 11:10 94 High Flow Nasal Cannula 40 65 03/22/24 10:55 93 High Flow Nasal Cannula 40 80 03/22/24 08:00 03/22/24 08:00 High Flow Nasal Cannula 03/22/24 07:35 93 High Flow Nasal Cannula 40 80 03/22/24 07:13 98 40 80 03/22/24 06:32 92 High Flow Nasal Cannula 60 100 03/22/24 06:18 84 L High Flow Nasal Cannula 40 100 03/22/24 06:15 76 L High Flow Nasal Cannula 40 70 Diagnostic Findings Reviewed imaging, laboratory and diagnostic studies. Pertinent findings as below. Reviewed telemetry monitoring, consistent with atrial fibrillation Personally reviewed chest x-ray images, small pleural effusions some congestion Reviewed echocardiogram, left atrial enlargement- a risk factor for atrial fibrillation
[2024-03-23 06:37] LABS: Hematocrit (blood only) 36.7 % (42.0-52.0); Hemoglobin 12.6 g/dl (14.0-18.0); Mean Corpuscular Hemoglobin 33.6 pg (25.0-34.0); Mean Corpuscular Hgb Conc 34.3 g/dL (32.0-36.0); Mean Corpuscular Volume 97.9 fL (80.0-100.0); Mean Platelet Volume 9.8 fL (9.4-12.4); Nucleated RBC # (auto) 0.03 K/uL (0.00-0.12); Nucleated RBC % (auto) 0.2 %; Platelet Count 380 K/uL (130-400); RDW Coefficient of Variation 14.2 % (11.5-14.5); RDW Standard Deviation 50.8 fL (36.4-46.3); Red Blood Count 3.75 M/uL (4.70-6.10)
[2024-03-23 06:42] LABS: BUN Creatinine Ratio 27.6 (10-20); Calcium 8.7 mg/dl (8.6-10.3); Creatinine Clr Calc Pharmacy 26.2 ml/min; Est GFR (Non-African American) 29.3 ml/min; Magnesium 2.6 mg/dl (1.7-2.4); Potassium 4.2 mmol/L (3.5-5.1)
--- NOTE | 2024-03-23 09:01 | Pulmonology Progress Note ---
Date of Service March 23, 2024 Assessment & Plan (1) Hypoxia: Plan: Secondary to infiltrative pneumonia-like process noted. This patient's condition has been ongoing since the beginning of the month. Unfortunately, despite aggressive treatment with antibiotics, high-dose steroids, and aggressive diuretic therapy, the patient is persistently hypoxic and requiring high flow nasal cannula to maintain his saturations. Additionally, the patient was noted to go into A-fib recently as well which is likely largely contributory to his underlying lung process as well. Upon assessment at bedside today, the patient expresses wishes to discontinue treatment at this time. He feels as though his body is giving up on him and does not wish to undergo any further interventions at this time. I did discuss with him that discontinuing his therapies would be acknowledging this as a nonrecoverable condition that he does not wish to forego any further treatments. He agrees with this and appears more interested in goals of care focused on comfort. I did explain to the patient that discontinuing his supplemental oxygen and other therapies would likely eventually result in his , but explained that this does not mean that this would be an immediate process. I did explain that there are ways to help provide him comfort focused care moving forward. Additionally, expressed that he discuss this with his family before definitively making decision as well, h owever I do support the patient's decision as he is able to make decisions for himself and has clearly thought about this prior to my discussion with the patient. I did discuss with nursing and she reports that the patient has been saying this throughout the weekend and they are waiting for family to arrive to discuss change of plans. Apparently, this had been reviewed with hospitalist service over the weekend. 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 Continue with daily prednisone for now. Try to wean down supplemental oxygen as tolerated. Unfortunately, his creatinine continues to climb as well despite treatment and without improvement in his lung function. Laterality: bilateral Lung location: unspecified part of lung Pneumonia type: due to unspecified organism Qualified Code(s): J18.9 - Pneumonia, unspecified organism (3) Abnormal CT scan of lung: Plan: As noted above. Of uncertain ideology at this point. Patient too unstable to undergo bronchoscopic evaluation nor is he interested at this time. Unfortunately, the patient was deemed too unstable to undergo swallow study so he is now n.p.o. which has been frustrating for him as well. Again, would recommend that of care consultation for goals of care moving forward and likely transition to comfort measures. Plan Thank you for allowing us to participate in the care of this patient. Pulmonary medicine will check back in the pending patient's decision regarding transitioning to a comfort geared approach. Admission and Anticipated Discharge Date Admission Date: March 11, 2024 Subjective Patient seen and evaluated at bedside. He reports that he occasionally develops shortness of breath which is intermittent and definitely worse with any exertion. He offers no complaints of chest pain or productive cough. Patient reports that he feels "done does not wish to continue with current therapies. He feels as though his body is letting him down and does not feel as though he is getting any better. Review of Systems Review of Systems: Unchanged from prior. Physical Exam Physical Exam: VITAL SIGNS - Vital signs and nursing notes were reviewed. GENERAL - 88-year-old male appearing his stated age. NECK - Neck with FROM. LUNGS - Chest wall evaluation demonstrates normal chest wall A:P diameter. Auscultation reveals diffuse rales. No wheezes. CARDIAC - RRR with S1/S2. No murmur, rubs, or gallops appreciated. ABDOMEN - Abdominal inspection demonstrates a flat abdomen. BS normoactive all four quadrants. No tenderness, palpable masses, or ascites noted. EXTREMITIES - Nail clubbing not present. No peripheral cyanosis. No pretibial edema present. +3/5 radial palpated throughout. PSYCH - A&Ox3 and cooperates fully with examiner. Pt is very pleasant and interacts well with examiner. Results & Data Results & Data Vital Signs (Past 12 Hours) Vital Signs Temp Pulse Pulse Resp BP BP BP 03/23/24 08:02 96 H 111/76 03/23/24 07:49 118 H 112/80 03/23/24 07:37 36.6 C 117 H 24 112/80 03/23/24 07:00 87 20 03/23/24 02:33 36.5 C 21 03/23/24 02:33 87 130/84 03/23/24 02:18 102 H 117/81 03/23/24 02:15 103 H 24 03/23/24 01:15 116 H 19 03/22/24 23:11 110 H 30 H 03/22/24 22:54 36.8 C 117 H 18 131/81 03/22/24 21:59 102 H Pulse Ox O2 Del Method O2 Flow Rate FiO2 03/23/24 08:02 03/23/24 07:49 03/23/24 07:37 92 High Flow Nasal Cannula 35 65 03/23/24 07:00 95 High Flow Nasal Cannula 35 65 03/23/24 02:33 99 High Flow Nasal Cannula 03/23/24 02:33 03/23/24 02:18 03/23/24 02:15 96 High Flow Nasal Cannula 35 65 03/23/24 01:15 95 High Flow Nasal Cannula 35 65 03/22/24 23:11 90 High Flow Nasal Cannula 35 35 03/22/24 22:54 96 High Flow Nasal Cannula 35 03/22/24 21:59 PG Care Time/CCT Total # of Minutes Spent Total Time Spent with Patient: Total time spent is greater than 50% in coordination of care (as documented) at patient's floor/unit and/or counseling patient: Coding Level of Care Code 42650 SUB INP/OBS CARE 35MIN Diagnoses Hypoxia R09.02 Pneumonia J18.9 Laterality: bilateral Lung location: unspecified part of lung Pneumonia type: due to unspecified organism Abnormal CT scan of lung R91.8
[2024-03-23] MEDS: LACTATED RINGER'S 1,000 ML IV SCH (09:59)
--- NOTE | 2024-03-23 12:44 | Electrocardiogram Report ---
Test Reason : Blood Pressure : / mmHG Vent. Rate : 118 BPM Atrial Rate : 122 BPM P-R Int : 000 ms QRS Dur : 086 ms QT Int : 298 ms P-R-T Axes : 000 -30 035 degrees QTc Int : 417 ms Atrial fibrillation with rapid ventricular response Left axis deviation Nonspecific ST abnormality Abnormal ECG When compared with ECG of 11-MAR-2024 18:03, Atrial fibrillation has replaced Sinus rhythm Confirmed by Cong Aimn ([id number]) on 03/23/2024 12:44:38 PM Referred By: REFERRED SELF Confirmed By:Cong Amin
[2024-03-23] MEDS ORDERED: TPN/PPN CONSULT PHARMACY STA (16:21)
--- NOTE | 2024-03-23 16:29 | Hospitalist Progress Note ---
Date of Service March 23, 2024 Assessment & Plan (1) Acute hypoxic respiratory failure: (2) Atrial fibrillation with rapid ventricular response: (3) Aspiration into airway: (4) Multifocal pneumonia: (5) Bibi infection, oral: (6) Delirium due to another medical condition: Plan Patient with acute hypoxic respiratory failure initially due to multifocal pneumonia continuing to require high flow nasal cannula support. Now with evidence of some aspiration. Completed course of antibiotics Continue steroids Atrial fibrillation well-controlled with IV metoprolol, now back in sinus rhythm Generalized discomfort and anxiety managed with morphine Extensive discussion with patient and family at bedside. Patient is now willing to continue with his current treatment plan. Agreeable to trial of peripheral nutrition. Continue high flow oxygen Start PPN I have speech reevaluate tomorrow to to consider advancing diet Continue IV medications until patient is safe to take orals Recheck electrolytes in a.m. 54 minutes spent in coordination of care, communication with staff, review of EMR, conversation with family and patient at bedside Admission and Anticipated Discharge Date Admission Date: March 11, 2024 Subjective Patient seen early this morning. More comfortable but still saying that he wanted to be kept comfortable and withdraw aggressive care. Patient seen again this afternoon with and son and extended family at bedside. He states he is feeling much better. He has no discomfort. Is a little frustrated that he is not allowed to eat. Physical Exam Physical Exam: Constitutional: Alert HEENT: Mucous membranes moist. High flow nasal cannula in place Lungs: Decreased breath sounds with some coarse rhonchi CV: S1-S2, irregular irregular Abdomen: Soft, nontender, nondistended Extremities: No significant edema Neuro: No focal deficits Psych: Cooperative, normal mood Results & Data Results & Data Vital Signs (Past 12 Hours) Vital Signs Temp Pulse Pulse Resp BP BP BP 03/23/24 15:32 93 H 03/23/24 14:44 36.5 C 87 20 139/72 03/23/24 14:44 87 139/72 03/23/24 14:21 97 H 153/92 H 03/23/24 14:19 153/92 H 03/23/24 14:09 98 H 16 03/23/24 12:49 100 H 18 03/23/24 11:50 36.6 C 97 H 24 155/90 H 03/23/24 11:07 90 16 03/23/24 08:02 96 H 111/76 03/23/24 07:49 118 H 112/80 03/23/24 07:37 36.6 C 117 H 24 112/80 03/23/24 07:15 125 H 03/23/24 07:15 03/23/24 07:00 87 20 Pulse Ox O2 Del Method O2 Flow Rate FiO2 03/23/24 15:32 03/23/24 14:44 94 High Flow Nasal Cannula 03/23/24 14:44 03/23/24 14:21 03/23/24 14:19 03/23/24 14:09 96 High Flow Nasal Cannula 35 55 03/23/24 12:49 94 High Flow Nasal Cannula 35 55 03/23/24 11:50 91 High Flow Nasal Cannula 35 65 03/23/24 11:07 95 High Flow Nasal Cannula 35 65 03/23/24 08:02 03/23/24 07:49 03/23/24 07:37 92 High Flow Nasal Cannula 35 65 03/23/24 07:15 03/23/24 07:15 High Flow Nasal Cannula 03/23/24 07:00 95 High Flow Nasal Cannula 35 65 Diagnostic Findings Reviewed imaging, laboratory and diagnostic studies. Pertinent findings as below. WBCs 14.2, increase due to steroids Hemoglobin 12.6 Creatinine 1.99 Phosphorus 5.0 Magnesium 2.6 Reviewed telemetry strips, converted to sinus rhythm
--- NOTE | 2024-03-23 20:59 | Palliative Care Consultation ---
Date of Consultation March 23, 2024 Assessment & Plan (1) Dyspnea and respiratory abnormalities: (2) Weakness generalized: (3) Aspiration into airway: (4) Advanced care planning/counseling discussion: Met with patient at bedside for [id number] ACP discussion x 20 minutes. He tells me that he is very tired and has not had any rest in the last 1 to 2 days. He is aware that his family is coming in hopes to have a few hours of a nap this afternoon so that he can better visit with them this evening. He states that overall he is feeling "okay" but just not better. He is unsure of how much improvement he can anticipate at this junction. He is aware that he has a significant pneumonia and respiratory failure requiring escalating oxygen therapy with the high flow nasal cannula. We discussed in a preliminary way that high flow is not a sustainable therapy that can be managed outside of the hospital. He is clear he does not wish to be placed on life support or any artificial interventions to prolong dying. He hopes that the high flow oxygen will help "turn things around enough that maybe I can think about going home." He is open to more discussion once his family arrives. He reaffirms DNR/DNI. He has been receiving as needed doses of low-dose morphine which has helped relieve his air hunger and agitation. We agreed to have a family meeting at the bedside tomorrow when they are present. (5) Palliative care by specialist: Discussed Palliative Medicine provides specialized medical care for patients with a serious illness. We offer a focus on quality of life through reduction of symptom burden/more control over their illness, for patients and their family. Palliative Medicine interventions can be given along with curative treatment. I specifically clarified we are not hospice, which is a visiting nurse service that focuses on care delivered at the very end of life. (6) Multifocal pneumonia: Plan As above. Thank you for allowing us to participate in the ongoing care of this patient. Please page with any additional concerns. Norma Hein DNP Director, Palliative Medicine History of Present Illness Reason for Consultation: goals of care, poss CIRCULATION ASSISTANT transition Attending Physician: Andrae Berry DO History of Present Illness Mr. Tapia was admitted 03/11/2024 with acute hypoxemic respiratory failure secondary to bronchopneumonia likely due to aspiration. + SIRS. Troponin elevated. Acute on chronic anemia noted, no overt bleed discovered. He remains on Unasyn and doxycycline with nebulizer therapy [id number]. Aspiration precautions are in place. He has been intermittently somnolent or drifting off. In discussion with staff and team members, it is discovered that family is en route from out of state. Anticipated arrival is this evening. There has been prior discussions with primary team for possible transition to comfort measures and patient himself has been refusing most interventions, removing his high flow nasal cannula, and declaring "I do not want to do this anymore just stop it." At the time of my visit, he is alone in the room, no family present. He is somnolent and easily drifts off. He tells me that he had a very disruptive night and no substantial rest. He feels that he has been disturbed multiple times when trying to sleep and this is why he is so tired today. He knows that his family is coming to visit later [facility] in hopes that with a couple hours of sleep this afternoon he will be able to enjoy visiting with them [facility] Allergies Allergy/AdvReac Type Severity Reaction Status Date / Time No Known Allergies Allergy Unknown Verified 03/11/24 21:46 Home Medications Medication Instructions Recorded Confirmed Type acetaminophen 500 mg tablet 1,000 mg PO DIRECTED PRN Pain 03/11/24 03/11/24 History (Tylenol Extra Strength) fluticasone 113 mcg-salmeterol 14 1 inh inhalation BID 03/11/24 03/11/24 History mcg/actuation breath activated powdr losartan 25 mg tablet 25 mg PO DAILY 03/11/24 03/11/24 History omeprazole 20 mg capsule,delayed 20 mg PO DAILY 03/11/24 03/11/24 History release propranolol 80 mg capsule,24 80 mg PO DAILY 03/11/24 03/11/24 History hr,extended release Patient History Social History Smoking Status: Never smoker Hx Alcohol Use: No Hx Substance Use: No Preferred Language: Turkish Communication Ability: Effective Ic Designer Custom Required: No Beliefs That Will Affect Care: Roman Catholic Current Living Situation: Alone Current Living Situation Comment: lives with at home Other Information That Helps Us Care for You: No Feels Safe at Home: Yes Safety Concerns: Feels Safe At This Time Assistive Devices: Cane Assistive Devices Comment: utilizing cane during this hospital visit d/t weakness; baseline is no aid Review of Systems Review of Systems: All systems reviewed & are unremarkable except as noted in Subjective Physical Exam Physical Exam: Elderly male, chronically ill-appearing, semireclined in bed. Bitemporal wasting noted PERRLA/EOMI's. + High flow nasal cannula in place Neck is supple, no stridor. There is shotty anterior adenopathy noted. Mildly increased respiratory effort at rest. This intensifies with prolonged discussion. Bilateral Rales throughout, no overt wheezing, occasional faint rhonchi which seem to clear with a cough. S1-S2 with no gross JVD noted. Abdomen is soft and nontender. Bowel sounds are present throughout. Extremities with generalized weakness but no gross edema noted He is awake and alert, identifies himself, place and year. He cannot tell me ma ms details of overnight other than to say he was constantly disrupted from rest and has not had much sleep. He has no acute signs of distress at the time of my visit. CAM screen negative for delirium Results & Data Vital Signs (Past 12 Hours) Vital Signs Temp Pulse Pulse Resp BP BP BP 03/23/24 20:35 86 167/74 H 03/23/24 19:39 86 18 03/23/24 19:28 36.6 C 86 20 167/74 H 03/23/24 15:32 93 H 03/23/24 14:44 36.5 C 87 20 139/72 03/23/24 14:44 87 139/72 03/23/24 14:21 97 H 153/92 H 03/23/24 14:19 153/92 H 03/23/24 14:09 98 H 16 03/23/24 12:49 100 H 18 03/23/24 11:50 36.6 C 97 H 24 155/90 H 03/23/24 11:07 90 16 Pulse Ox O2 Del Method O2 Flow Rate FiO2 03/23/24 20:35 03/23/24 19:39 92 High Flow Nasal Cannula 35 70 03/23/24 19:28 91 High Flow Nasal Cannula 03/23/24 15:32 03/23/24 14:44 94 High Flow Nasal Cannula 03/23/24 14:44 03/23/24 14:21 03/23/24 14:19 03/23/24 14:09 96 High Flow Nasal Cannula 35 55 03/23/24 12:49 94 High Flow Nasal Cannula 35 55 03/23/24 11:50 91 High Flow Nasal Cannula 35 65 03/23/24 11:07 95 High Flow Nasal Cannula 35 65 Laboratory Results 03/23/24 03/21/24 03/21/24 Range/Units 05:44 Unknown 08:21 WBC 14.20 H (4.8-10.8) K/ul RBC 3.75 L (4.70-6.10) M/uL Hgb 12.6 L (14.0-18.0) g/dl Hct 36.7 L (42.0-52.0) % MCV 97.9 (80.0-100.0) fL MCH 33.6 (25.0-34.0) pg MCHC 34.3 (32.0-36.0) g/dL RDW Std Deviation 50.8 H (36.4-46.3) fL RDW Coeff of Karl 14.2 (11.5-14.5) % Plt Count 380 (130-400) K/uL MPV 9.8 (9.4-12.4) fL Immature Gran % (Auto) % Neut % (Auto) % Lymph % (Auto) % [place] % (Auto) % Eos % (Auto) % Baso % (Auto) % Neut # (Auto) (1.40-6.50) K/uL Lymph # (Auto) (1.20-3.40) K/uL [place] # (Auto) (0.11-0.59) K/uL Eos # (Auto) (0.00-0.50) K/uL Baso # (Auto) (0.00-0.20) K/uL Immature Gran # (Auto) (0.01-0.20) K/uL Absolute Nucleated RBC 0.03 (0.00-0.12) K/uL Nucleated RBC % (auto) 0.2 % Polychromasia Echinocytes ABG pH 7.44 ABG pCO2 30 L ABG pO2 164 H ABG HCO3 20 ABG O2 Saturation 99.1 H ABG Base Excess -2.7 Romie Test Pos Barometric Pressure Oxygen Given HIGH FLOW 50 Sodium 142 (136-145) mmol/L Potassium 4.2 (3.5-5.1) mmol/L Chloride 107 (98-107) mmol/L Carbon Dioxide 22 (21-32) mmol/L Anion Gap 13 H (3-11) BUN 55 H (6-23) mg/dl Creatinine 1.99 H (0.6-1.4) mg/dl Est Cr Clr Drug Dosing 26.2 ml/min Est GFR ( Amer) 34.0 ml/min Est GFR (Non-Af Amer) 29.3 ml/min BUN/Creatinine Ratio 27.6 H (10-20) Glucose 123 H (70-99(Fasting)) mg/dl Calcium 8.7 (8.6-10.3) mg/dl Phosphorus 5.0 H (2.5-4.9) mg/dl Magnesium 2.6 H (1.7-2.4) mg/dl Urine Color Yellow Urine Appearance Clear (Clear) Urine pH 5.0 (4.5-7.5) Ur Specific Linwood 1.018 (1.000-1.030) Urine Protein Trace H (Negative) Urine Glucose (UA) Negative (Negative) Urine Ketones Negative (Negative) Urine Blood Negative (Negative) Urine Nitrite Negative (Negative) Urine Bilirubin Negative (Negative) Urine Urobilinogen Negative (Negative) Ur Leukocyte Esterase Negative (Negative) Urine WBC (Auto) 0-5 (0-5) /hpf Urine RBC (Auto) 0-2 (0-2) /hpf U Hyaline Cast (Auto) 0-2 (0-2) /lpf U Epithel Cells (Auto) 0-2 (0-2) /hpf Urine Bacteria (Auto) None Seen (None Seen) Urine Legionella Ag 03/21/24 03/21/24 03/19/24 Range/Units 07:44 05:34 06:31 WBC 12.50 H 11.31 H (4.8-10.8) K/ul RBC 2.97 L 2.87 L (4.70-6.10) M/uL Hgb 10.1 L 9.7 L (14.0-18.0) g/dl Hct 28.7 L 27.7 L (42.0-52.0) % MCV 96.6 96.5 (80.0-100.0) fL MCH 34.0 33.8 (25.0-34.0) pg MCHC 35.2 35.0 (32.0-36.0) g/dL RDW Std Deviation 48.6 H 48.0 H (36.4-46.3) fL RDW Coeff of Karl 13.7 13.5 (11.5-14.5) % Plt Count 311 298 (130-400) K/uL MPV 9.6 9.8 (9.4-12.4) fL Immature Gran % (Auto) 2.4 % Neut % (Auto) 88.3 % Lymph % (Auto) 5.0 % [place] % (Auto) 4.2 % Eos % (Auto) 0.0 % Baso % (Auto) 0.1 % Neut # (Auto) 9.98 H (1.40-6.50) K/uL Lymph # (Auto) 0.57 L (1.20-3.40) K/uL [place] # (Auto) 0.48 (0.11-0.59) K/uL Eos # (Auto) 0.00 (0.00-0.50) K/uL Baso # (Auto) 0.01 (0.00-0.20) K/uL Immature Gran # (Auto) 0.27 H (0.01-0.20) K/uL Absolute Nucleated RBC 0.02 (0.00-0.12) K/uL Nucleated RBC % (auto) 0.2 % Polychromasia Echinocytes ABG pH Cancelled ABG pCO2 Cancelled ABG pO2 Cancelled ABG HCO3 Cancelled ABG O2 Saturation Cancelled ABG Base Excess Cancelled Romie Test Cancelled Barometric Pressure Cancelled Oxygen Given Cancelled Sodium 136 137 (136-145) mmol/L Potassium 4.1 3.7 (3.5-5.1) mmol/L Chloride 104 102 (98-107) mmol/L Carbon Dioxide 23 24 (21-32) mmol/L Anion Gap 9 11 (3-11) BUN 57 H 58 H (6-23) mg/dl Creatinine 1.84 H 1.90 H (0.6-1.4) mg/dl Est Cr Clr Drug Dosing 28.3 29.8 ml/min Est GFR ( Amer) 37.4 35.9 ml/min Est GFR (Non-Af Amer) 32.2 31.0 ml/min BUN/Creatinine Ratio 31.0 H 30.5 H (10-20) Glucose 138 H 127 H (70-99(Fasting)) mg/dl Calcium 8.1 L 8.4 L (8.6-10.3) mg/dl Phosphorus (2.5-4.9) mg/dl Magnesium 2.3 (1.7-2.4) mg/dl Urine Color Urine Appearance (Clear) Urine pH (4.5-7.5) Ur Specific Lin[place] (1.000-1.030) Urine Protein (Negative) Urine Glucose (UA) (Negative) Urine Ketones (Negative) Urine Blood (Negative) Urine Nitrite (Negative) Urine Bilirubin (Negative) Urine Urobilinogen (Negative) Ur Leukocyte Esterase (Negative) Urine WBC (Auto) (0-5) /hpf Urine RBC (Auto) (0-2) /hpf U Hyaline Cast (Auto) (0-2) /lpf U Epithel Cells (Auto) (0-2) /hpf Urine Bacteria (Auto) (None Seen) Urine Legionella Ag 03/18/24 03/17/24 03/14/24 Range/Units 07:23 06:51 Unknown WBC 12.18 H 6.82 (4.8-10.8) K/ul RBC 2.77 L 2.52 L (4.70-6.10) M/uL Hgb 9.3 L 8.4 L (14.0-18.0) g/dl Hct 26.6 L 24.7 L (42.0-52.0) % MCV 96.0 98.0 (80.0-100.0) fL MCH 33.6 33.3 (25.0-34.0) pg MCHC 35.0 34.0 (32.0-36.0) g/dL RDW Std Deviation 48.1 H 49.7 H (36.4-46.3) fL RDW Coeff of Karl 13.6 14.0 (11.5-14.5) % Plt Count 270 205 (130-400) K/uL MPV 9.7 10.1 (9.4-12.4) fL Immature Gran % (Auto) 1.3 0.7 % Neut % (Auto) 91.4 90.8 % Lymph % (Auto) 4.6 6.9 % Mar[place] % (Auto) 2.5 1.5 % Eos % (Auto) 0.0 0.0 % Baso % (Auto) 0.2 0.1 % Neut # (Auto) 11.13 H 6.19 (1.40-6.50) K/uL Lymph # (Auto) 0.56 L 0.47 L (1.20-3.40) K/uL [place] # (Auto) 0.31 0.10 L (0.11-0.59) K/uL Eos # (Auto) 0.00 0.00 (0.00-0.50) K/uL Baso # (Auto) 0.02 0.01 (0.00-0.20) K/uL Immature Gran # (Auto) 0.16 0.05 (0.01-0.20) K/uL Absolute Nucleated RBC 0.02 (0.00-0.12) K/uL Nucleated RBC % (auto) 0.2 % Polychromasia 1+ Echinocytes 1+ ABG pH ABG pCO2 ABG pO2 ABG HCO3 ABG O2 Saturation ABG Base Excess Romie Test Barometric Pressure Oxygen Given Sodium 135 L 134 L (136-145) mmol/L Potassium 3.8 3.9 (3.5-5.1) mmol/L Chloride 103 102 (98-107) mmol/L Carbon Dioxide 21 23 (21-32) mmol/L Anion Gap 11 9 (3-11) BUN 49 H 47 H (6-23) mg/dl Creatinine 1.69 H 1.83 H (0.6-1.4) mg/dl Est Cr Clr Drug Dosing 33.3 30.9 ml/min Est GFR ( Amer) 41.4 37.6 ml/min Est GFR (Non-Af Amer) 35.7 32.4 ml/min BUN/Creatinine Ratio 29.0 H 25.7 H (10-20) Glucose 143 H 152 H (70-99(Fasting)) mg/dl Calcium 8.4 L 8.1 L (8.6-10.3) mg/dl Phosphorus (2.5-4.9) mg/dl Magnesium (1.7-2.4) mg/dl Urine Color Urine Appearance (Clear) Urine pH (4.5-7.5) Ur Specific Lin[place] (1.000-1.030) Urine Protein (Negative) Urine Glucose (UA) (Negative) Urine Ketones (Negative) Urine Blood (Negative) Urine Nitrite (Negative) Urine Bilirubin (Negative) Urine Urobilinogen (Negative) Ur Leukocyte Esterase (Negative) Urine WBC (Auto) (0-5) /hpf Urine RBC (Auto) (0-2) /hpf U Hyaline Cast (Auto) (0-2) /lpf U Epithel Cells (Auto) (0-2) /hpf Urine Bacteria (Auto) (None Seen) Urine Legionella Ag SEE NOTE Diagnostic Findings Chest X-Ray 03/11/24 17:33 XR chest 1V portable CLINICAL HISTORY: Dyspnea COMPARISON STUDY: Chest radiograph November 13, 2007. FINDINGS: There is no pneumothorax or pleural effusion. There is slight asymmetric increased attenuation of the right lung. Left basilar interstitial thickening is present. Cardiomediastinal silhouette is unremarkable. No definite evidence for pulmonary edema. IMPRESSION: Slight asymmetric increased attenuation of the right lung. This may reflect pneumonia, artifact or asymmetric pulmonary. A layering pleural effusion could appear similar but is considered less likely. Radiographic follow-up to ensure resolution is recommended. ACT 112: Negative or not required by law. Electronically signed by: Andrea Green M.D. 03/11/2024 6:[address] 03/11/24 23:11 Exam(s): CT CHEST Without Contrast EXAM: CT Chest Without Intravenous Contrast CLINICAL HISTORY: Reason for exam: sob, cough. TECHNIQUE: Axial computed tomography images of the chest without intravenous contrast. CTDI is 13.77 mGy and DLP is 442.69 mGy-cm. Automated exposure control was utilized for the study. A dose lowering technique was utilized adhering to the principles of ALARA. COMPARISON: No relevant prior studies available. FINDINGS: Lungs: Bilateral ground-glass attenuation, consistent with infectious or inflammatory etiology. Correlate clinically. No mass. No consolidation. Pleural space: Unremarkable. No pneumothorax. No significant effusion. Heart: Unremarkable. No cardiomegaly. No significant pericardial effusion. No significant coronary artery calcifications. Bones/joints: Degenerative changes of the spine. No acute fracture. No dislocation. Soft tissues: Unremarkable. Vasculature: Atherosclerotic changes of the aorta. No thoracic aortic aneurysm. Lymph nodes: Unremarkable. No enlarged lymph nodes. IMPRESSION: Bilateral ground-glass attenuation, consistent with infectious or inflammatory etiology. Correlate clinically. Electronically signed by: Ruiz Sinha MD 03/12/24 03:33 AM Chest X-Ray 03/12/24 23:17 XR chest 1V portable CLINICAL HISTORY: low o2 TECHNIQUE: Single frontal radiograph of the chest was obtained. Comparison: Comparison is made to chest radiograph 03/11/[address] chest 03/12/2024 FINDINGS: No lines and tubes are seen. Calcified aortic knob is seen. Multifocal airspace opacities are seen. No evidence of pleural effusion or pneumothorax. IMPRESSION: Multifocal airspace opacities compatible with pneumonia and/or aspiration. ACT 112: Negative or not required by law. Electronically signed by: Jose Robertson M.D. 03/13/2024 7:55 AM Chest X-Ray 03/15/24 07:00 XR chest 1V portable CLINICAL HISTORY: pna TECHNIQUE: Single frontal radiograph of the chest was obtained. Comparison: Comparison is made to chest radiograph 03/12/2024 FINDINGS: No lines and tubes are seen. Multiple airspace opacities are essentially unchanged from prior exam. Cardiac silhouette is unchanged. No evidence of ple ural effusion or pneumothorax. IMPRESSION: Multifocal airspace opacities, grossly unchanged from prior exam. ACT 112: Negative or not required by law. Electronically signed by: Jose Robertson M.D. 03/15/2024 8:29 AM Chest X-Ray 03/15/24 15:25 XR chest 1V portable CLINICAL HISTORY: Worsening Hypoxia, Pneumonia TECHNIQUE: Single frontal radiograph of the chest was obtained. Comparison: Comparison is made to chest radiograph 03/15/2024 FINDINGS: No lines and tubes are seen. Calcified aortic knob is seen. Multifocal airspace opacities are seen. No evidence of pleural effusion or pneumothorax. IMPRESSION: Findings compatible with multifocal pneumonia, stable to slightly increased from prior exam. ACT 112: Negative or not required by law. Electronically signed by: Jose Robertson M.D. 03/15/2024 4:[address] 03/15/24 18:22 CT cervical spine wo con CLINICAL HISTORY: R/O Fracture TECHNIQUE: Multidetector row helical CT of the cervical spine was performed without administration of intravenous contrast. Coronal and sagittal reformations were obtained. Automated dose lowering techniques and/or adjustment according to patient size were utilized for this exam. Comparison: None available at the time of this dictation. FINDINGS: No acute fractures or subluxations are identified. Degenerative changes are seen in the visualized spine. The alignment is normal. Opacities are seen in the bilateral lung. IMPRESSION: Degenerative changes without evidence of acute bony injury. ACT 112: Negative or not required by law. Electronically signed by: Jose Robertson M.D. 03/15/2024 6:[address] 03/15/24 18:22 CT head/brain wo con CLINICAL HISTORY: R/O bleed Technique: Contiguous axial CT images of the head were acquired from the base of the skull to the vertex without intravenous contrast administration. Images were viewed in brain, subdural and bone windows. Automated dose lowering techniques and/or adjustment according to patient size were utilized for this exam. Comparison: None available at the time of this dictation. Findings: Areas of decreased attenuation are present in the periventricular and subcortical white matter bilaterally consistent with small vessel ischemic disease. Generalized cerebral atrophy with commensurate enlargement of the ventricles, sulci, and cisterns is also present. There is no acute intracranial hemorrhage or evidence of acute territorial infarction. No shift of the midline structures, mass effect, or extra-axial abnormalities are shown. Atherosclerotic calcifications are present in the intracranial segments of the internal carotid arteries. Imaged portions of the paranasal sinuses and mastoid air cells are clear. The orbits appear normal. There are no acute fractures of the calvaria or scalp swelling. Impression: No acute intracranial hemorrhage, no evidence of acute territorial infarction or other acute intracranial disease process. ACT 112: Negative or not required by law. Electronically signed by: Jose Robertson M.D. 03/15/2024 6:46 PM Venous Doppler Study 03/16/24 11:48 BILATERAL LOWER EXTREMITY VENOUS DOPPLER HISTORY: Shortness of breath. Rule out DVT COMPARISON STUDY: None. FINDINGS: There is normal compressibility, flow, and augmentation within the bilateral lower extremity deep venous systems. IMPRESSION: No DVT within the right or left lower extremity. ACT 112: Negative or not required by law. Electronically signed by: Luke Shepard M.D. 03/16/2024 2:08 PM Chest X-Ray 03/18/24 07:00 XR chest 1V portable HISTORY: Pneumonia. Hypoxia. COMPARISON: Chest 03/15/2024. FINDINGS: No pneumothorax. No pleural effusions. The cardiac silhouette remains mildly enlarged. There are low lung volumes. Patchy bilateral airspace opacities persist and are consistent with a multifocal pneumonia. No acute fractures. IMPRESSION: No significant change in the multifocal bilateral airspace opacities consistent with a pneumonia. ACT 112: Negative or not required by law. Electronically signed by: Luke Shepard M.D. 03/18/2024 7:42 AM Chest X-Ray 03/20/24 08:43 XR chest 1V portable HISTORY: Pneumonia. f/u COMPARISON: Chest 03/18/2024. FINDINGS: No pneumothorax. No pleural effusions. There are low lung volumes. The heart remains mildly enlarged. Multifocal patchy bilateral airspace opacities are again noted. These have slightly improved. IMPRESSION: Slight improvement in the multifocal patchy bilateral airspace opacities consistent with a pneumonia. ACT 112: Negative or not required by law. Electronically signed by: Luke Shepard M.D. 03/20/2024 10:45 AM Chest X-Ray 03/21/24 12:23 SINGLE VIEW CHEST CLINICAL HISTORY: Follow-up pneumonia FINDINGS: An AP, portable, upright chest radiograph is compared to study dated 03/20/2024 and correlated with chest CT dated 03/12/2024. The heart is enlarged. There is pulmonary vascular congestion. Multifocal airspace consolidation is again seen throughout both lungs. This is similar to yesterday. Small pleural effusions are noted. No pneumothorax is seen. The skeletal structures are osteopenic. The bony thorax is grossly intact. IMPRESSION: 1. Cardiomegaly with pulmonary vascular congestion. 2. Multifocal airspace consolidation has not significantly changed from yesterday. 3. Small pleural effusions. ACT 112: Negative or not required by law. Electronically signed by: Tico Keating M.D. 03/21/2024 1:03 PM Chest X-Ray 03/22/24 07:00 XR chest 1V portable HISTORY: Respiratory distress. COMPARISON: Chest 03/21/2024. FINDINGS: The heart is enlarged. There is pulmonary vascular congestion. Multifocal airspace consolidation is again seen throughout both lungs. This is similar to yesterday. Small pleural effusions are noted. No pneumothorax is seen. The skeletal structures are osteopenic. The bony thorax is grossly intact. IMPRESSION: 1. Cardiomegaly with pulmonary vascular congestion. 2. Multifocal airspace consolidation has not significantly changed from yesterday. 3. Small pleural effusions. ACT 112: Negative or not required by law. Electronically signed by: Luke Shepard M.D. 03/22/2024 8:39 AM PG Care Time/CCT Total # of Minutes Spent Total Time Spent with Patient: Total time spent is greater than 50% in coordination of care (as documented) at patient's floor/unit and/or counseling patient: I spent 85 minutes overall addressing this case: 15 min in medical data review/discussion with referring provider(s) and/or preparation for the visit 25 min in direct interaction with the patient/exam including CAM delirium screen 20 min in Advance Care Planning/Goals of Care discussions as detailed above in note (must be >16min) 10 min in subsequent review and synthesis of assessment and plan 15 min communicating with other providers regarding the patient's case: Primary team, nursing Advanced Care Planning 50620 Advanced Care Planning 30 [place] [address] IN/OBS CONSULT LVL 4,60M (25 - SIGNIFICANT, SEPARATELY IDENTIFIABLE ) Patient Type New Medical Decision Making High Complexity Diagnoses Dyspnea and respiratory abnormalities R06.00; R06.89 Weakness generalized R53.1 Aspiration into airway T17.908A Advanced care planning/counseling discussion Z71.89 Palliative care by specialist Z51.5 Multifocal pneumonia J18.9 Additional Codes Advanced Care Planning - 56271 Advanced Care Planning 30 Min: 24651 Advanced Care Planning 30 Min ([id number])
[2024-03-24] MEDS ORDERED: TPN/PPN CONSULT PHARMACY PRN (06:00)
[2024-03-24 06:39] LABS: Hematocrit (blood only) 33.6 % (42.0-52.0); Hemoglobin 11.4 g/dl (14.0-18.0); Mean Corpuscular Hemoglobin 33.7 pg (25.0-34.0); Mean Corpuscular Hgb Conc 33.9 g/dL (32.0-36.0); Mean Corpuscular Volume 99.4 fL (80.0-100.0); Mean Platelet Volume 9.9 fL (9.4-12.4); Platelet Count 322 K/uL (130-400); RDW Coefficient of Variation 14.4 % (11.5-14.5); RDW Standard Deviation 52.1 fL (36.4-46.3); Red Blood Count 3.38 M/uL (4.70-6.10); White Blood Count 12.12 K/ul (4.8-10.8)
[2024-03-24] MEDS: LEVALBUTEROL 1.25 MG/3 ML NEB NEB SCH (07:04)
[2024-03-24 07:08] LABS: BUN Creatinine Ratio 28.2 (10-20); Bilirubin,Total 0.8 mg/dl (0.2-1.0); Calcium 8.3 mg/dl (8.6-10.3); Creatinine Clr Calc Pharmacy 27.7 ml/min; Est GFR (African American) 36.4 ml/min; Est GFR (Non-African American) 31.4 ml/min; Magnesium 2.5 mg/dl (1.7-2.4); Phosphorus 4.1 mg/dl (2.5-4.9); Potassium 4.1 mmol/L (3.5-5.1)
[2024-03-24] MEDS: METOPROLOL TARTRATE 1 MG/ML VIAL IV STA (07:13)
[2024-03-24] MEDS: IPRATROPIUM BROMIDE NEB SOLN 0.02% 0.5MG/2.5ML VIAL NEB SCH (08:30)
--- NOTE | 2024-03-24 09:58 | Pulmonology Progress Note ---
Date of Service March 24, 2024 Assessment & Plan (1) Hypoxia: Plan: Secondary to infiltrative pneumonia-like process noted. This patient's condition has been ongoing since the beginning of the month. Unfortunately, despite aggressive treatment with antibiotics, high-dose steroids, and aggressive diuretic therapy, the patient is persistently hypoxic and requiring high flow nasal cannula to maintain his saturations. Additionally, the patient was noted to go into A-fib recently as well which is likely largely contributory to his underlying lung process as well. The patient remains with persistent, episodic dyspnea and significant dyspnea with any exertion. He is still requiring moderate amount of supplemental oxygen and is desaturating and dyspneic with any exertion. Unfortunately, the patient has not shown significant improvement from a pulmonary perspective despite the aggressive management. As noted yesterday, the patient is uncertain if he wishes to continue with the aggressive interventions at this time. The patient now is receiving angiolytic doses of morphine with his breathing. Palliative care note reviewed and it appears as though the family is to have a discussion today. (2) Pneumonia: Plan: Try to wean down supplemental oxygen as tolerated. Would benefit from keeping the patient on the snuff drier side with doses of Lasix to be used as needed. Unfortunately, his creatinine continues to climb as well despite treatment and without improvement in his lung function. Laterality: bilateral Lung location: unspecified part of lung Pneumonia type: due to unspecified organism Qualified Code(s): J18.9 - Pneumonia, unspecified organism (3) Abnormal CT scan of lung: Plan: As noted above. Of uncertain etiology at this point. Patient too unstable to undergo bronchoscopic evaluation nor is he interested at this time. Unfortunately, the patient was deemed too unstable to undergo swallow study so he is now n.p.o. which has been frustrating for him as well. Plan Thank you for allowing us to participate in the care of this patient. Admission and Anticipated Discharge Date Admission Date: March 11, 2024 Subjective Patient was seen and evaluated at bedside this morning. He reports ongoing episodic dyspnea which is persistent and unchanged. He offers no other complaints today. Review of Systems Review of Systems: Unchanged from prior. Physical Exam Physical Exam: VITAL SIGNS - Vital signs and nursing notes were reviewed. GENERAL - 88-year-old male appearing his stated age. NECK - Neck with FROM. LUNGS - Chest wall evaluation demonstrates normal chest wall A:P diameter. Ausc ultation reveals diffuse rales. No wheezes. CARDIAC - RRR with S1/S2. No murmur, rubs, or gallops appreciated. ABDOMEN - Abdominal inspection demonstrates a flat abdomen. BS normoactive all four quadrants. No tenderness, palpable masses, or ascites noted. EXTREMITIES - Nail clubbing not present. No peripheral cyanosis. No pretibial edema present. +3/5 radial palpated throughout. PSYCH - A&Ox3 and cooperates fully with examiner. Pt is very pleasant and interacts well with examiner. Results & Data Results & Data Vital Signs (Past 12 Hours) Vital Signs Temp Pulse Pulse Resp BP BP BP 03/24/24 09:48 104 H 103/68 03/24/24 09:18 142 H 131/62 03/24/24 07:33 103 H 142/85 H 03/24/24 07:28 36.9 C 103 H 22 142/85 H 03/24/24 07:06 113 H 17 03/24/24 06:36 119 H 129/78 03/24/24 03:32 68 16 03/24/24 02:49 70 03/24/24 02:34 94 H 157/85 H 03/24/24 02:21 36.8 C 94 H 18 157/85 H 03/24/24 00:04 103 H 22 03/23/24 23:10 36.7 C 102 H 22 166/90 H 03/23/24 22:04 106 H 28 H 170/89 H 03/23/24 22:03 113 H Pulse Ox O2 Del Method O2 Flow Rate FiO2 03/24/24 09:48 03/24/24 09:18 03/24/24 07:33 03/24/24 07:28 91 High Flow Nasal Cannula 35 55 03/24/24 07:06 90 High Flow Nasal Cannula 35 55 03/24/24 06:36 03/24/24 03:32 99 High Flow Nasal Cannula 35 65 03/24/24 02:49 03/24/24 02:34 03/24/24 02:21 97 High Flow Nasal Cannula 03/24/24 00:04 96 High Flow Nasal Cannula 35 70 03/23/24 23:10 95 High Flow Nasal Cannula 03/23/24 22:04 88 L High Flow Nasal Cannula 03/23/24 22:03 PG Care Time/CCT Total # of Minutes Spent Total Time Spent with Patient: Total time spent is greater than 50% in coordination of care (as documented) at patient's floor/unit and/or counseling patient: Coding Level of Care Code 73861 SUB INP/OBS CARE 235MIN Diagnoses Hypoxia R09.02 Pneumonia J18.9 Laterality: bilateral Lung location: unspecified part of lung Pneumonia type: due to unspecified organism Abnormal CT scan of lung R91.8
--- NOTE | 2024-03-24 12:06 | Hospitalist Progress Note ---
Date of Service March 24, 2024 Assessment & Plan (1) Acute hypoxic respiratory failure: (2) Atrial fibrillation with rapid ventricular response: (3) Aspiration into airway: (4) Multifocal pneumonia: (5) Bibi infection, oral: (6) Delirium due to another medical condition: Plan Patient is an 88-year-old gentleman with acute hypoxic respiratory failure in the setting of multifocal pneumonia. High flow oxygen dependence has persisted. He is completed a course of antibiotics here in the hospital. He continues to require high flow. His swallowing function has improved to point where he is able to advance his diet again today. Patient and family is at bedside and an ticipating conversation with palliative care to further develop goals of care moving forward. Advance diet per speech recommendations Transition back to oral medications. Start metoprolol for A-fib rate control, start Eliquis for anticoagulation. Discontinue full dose Lovenox. Antitussives and mucolytic's scheduled Continue titrate oxygen as able Monitor laboratory studies WBCs have improved, at this time we will continue to monitor, do not believe patient needs any additional antibiotics however should he still have a fever or have worsening respiratory status may need to reconsider Continue to have ongoing discussions about goals of care. Patient and family are considering transitioning to comfort measures only if his dependence on high flow oxygen persist much longer. Admission and Anticipated Discharge Date Admission Date: March 11, 2024 Subjective Patient is extremely happy, was just seen by speech and they have advance his diet and allowed him to drink some water. He states he is comfortable. His family is at the bedside and they are anticipating a meeting with palliative care Physical Exam Physical Exam: Constitutional: Alert HEENT: Mucous membranes moist. High flow nasal cannula Lungs: decreased, some scattered rhonchi CV: S1-S2, irregular irregular Abdomen: Soft, nontender, nondistended Extremities: No significant edema Neuro: No focal deficits, generalized weakness, oriented Psych: Cooperative, normal mood Results & Data Results & Data Vital Signs (Past 12 Hours) Vital Signs Temp Pulse Pulse Resp BP BP BP 03/24/24 11:10 36.6 C 114 H 22 131/77 03/24/24 10:45 110 H 18 03/24/24 09:48 104 H 103/68 03/24/24 09:18 142 H 131/62 03/24/24 07:33 103 H 142/85 H 03/24/24 07:30 123 H 03/24/24 07:30 03/24/24 07:28 36.9 C 103 H 22 142/85 H 03/24/24 07:06 113 H 17 03/24/24 06:36 119 H 129/78 03/24/24 03:32 68 16 03/24/24 02:49 70 03/24/24 02:34 94 H 157/85 H 03/24/24 02:21 36.8 C 94 H 18 157/85 H 03/24/24 00:04 103 H 22 Pulse Ox O2 Del Method O2 Flow Rate FiO2 03/24/24 11:10 92 High Flow Nasal Cannula 40 80 03/24/24 10:45 91 High Flow Nasal Cannula 40 80 03/24/24 09:48 03/24/24 09:18 03/24/24 07:33 03/24/24 07:30 03/24/24 07:30 High Flow Nasal Cannula 03/24/24 07:28 91 High Flow Nasal Cannula 35 55 03/24/24 07:06 90 High Flow Nasal Cannula 35 55 03/24/24 06:36 03/24/24 03:32 99 High Flow Nasal Cannula 35 65 03/24/24 02:49 03/24/24 02:34 03/24/24 02:21 97 High Flow Nasal Cannula 03/24/24 00:04 96 High Flow Nasal Cannula 35 70 Diagnostic Findings Reviewed imaging, laboratory and diagnostic studies. Pertinent findings as below. Telemetry reviewed, overall fair control rate. Converted back into atrial fibrillation WBCs 12.1, improved Hemoglobin 11.4, stable Creatinine 1.88, improved/stable Phosphorus 4.1, improved Magnesium 2.5, improved
[2024-03-24] MEDS ORDERED: ENOXAPARIN 1 MG/KG SC SCH (14:30)
[2024-03-24] MEDS: METOPROLOL TARTRATE 25 MG TAB PO SCH (14:38)
[2024-03-24] MEDS: FAMOTIDINE 20 MG TAB PO SCH (14:38)
[2024-03-24] MEDS: guaiFENesin SUGAR FREE 100 MG/5 ML UDC PO SCH (14:47)
[2024-03-24] MEDS: ENOXAPARIN 80 MG/0.8 ML SYR SQ SCH (15:35)
[2024-03-24] MEDS: SODIUM CHLORIDE 0.9% 1,000 ML IV SCH (15:36)
[2024-03-24] MEDS ORDERED: DEXTROSE 10% 1,000 ML IV PRN (16:00)
[2024-03-24] MEDS: METOPROLOL TARTRATE 1 MG/ML VIAL IV SCH (17:27)
--- NOTE | 2024-03-24 18:14 | Palliative Family Discussion ---
Date of Service March 24, 2024 Patient Directed Conference Time of [id number] Participants: Lynda Hein DNP Patient participation: intermittent confusion Patient Support System: , son, grandson at bedside Other Healthcare Provider Participation: None Meeting Location: bedside Advanced Directive available: no The patient's surrogate medical decision maker participated: yes, and son A [id number] advance care planning meeting was held at the bedside for this patient, together with his family as outlined above, for total of 45 minutes [id number]. Family meeting was held for HENNA Lazaro ARIAN Alcantara. This meeting was necessary for determining the appropriate course of treatment. Topics of Discussion Topics of Discussion: 1. Aspiration related pneumonia, hypoxic respiratory failure, worsening respiratory dynamics now on high flow nasal cannula. Unable to consistently tolerate high flow, requiring doses of morphine to decrease agitation and air hunger. 2. states that patient would not want to subsist in this manner. He was never a fan of being on prolonged machinery or medical equipment. He would not want to live in a half-way or in a dependent/compromised manner. She knows that he has been asking for these therapies and interventions to be discontinued and allow him to pass peacefully. She notes that he is 89 years old and that is quite possible his time has come. She accepts his wishes and feels the best thing they can do at this time is to support his goal for a comfort/quality of life focused plan of care. 3. Patient's son is a little bit more troubled by the potential need to transition to a comfort focused plan of care. He had many questions about how someone could be weaned off of high flow nasal cannula and asked if there was a potential be to able to bring patient home with hospice. Discussed that overall given his high rate of dependency on the high flow, we were unlikely to get to a place where nasal cannula alone would be comfortable enough to allow a stable discharge home. Anticipate that once high flow nasal cannula is completely weaned down, even with transition to nasal cannula, I would anticipate a survival of hours to days for patient. Would be best to keep him in the hospital. If however he demonstrates 1 to 2 days of relative stability on nasal cannula, then there would be no issues with looking to get him home with the addition of home hospice for what ever time may be remaining for him. Other Content of Meetin. Opportunity given for participants to speak and ask questions. 2. Participants were assured of attention to patient comfort. 3. Reassurance provided. 4. Support was provided for informed, good-jossie decisions. 5. Emotions expressed by family were acknowledged and addressed. 6. Family plans to have more discussions about the options discussed above. We discussed the option of either moving to comfort care versus allowing a tincture of time i.e. 48 hours to see how much better he gets. I recommended that if we want to consider a time-limited trial, we also agree that should he have any acute decline in the same interim of the trial, then we would pivot to a comfort focused plan of care immediately because that would be evidence that in spite of escalating interventions, he is acutely declining and likely transitioning from a process of living to a process of dying. Family was in agreement with this. His however is convinced that he is likely transitioning to an end-of-life process and that comfort measures would be most appropriate. They plan to discuss further as a family. 7. Plan of Care: Family will update the medical team/nursing team tomorrow if their preferences. Son hopes that by visiting tomorrow morning, patient will be more alert and lucid and able to express his wishes. I spent 90 minutes overall addressing this case: 5 min in medical data review/discussion with referring provider(s) and/or preparation for the visit 15 min in direct interaction with the patient/exam 45 min in Advance Care Planning/Goals of Care discussions as detailed above in note (must be >16min) 10 min in subsequent review and synthesis of assessment and plan 15 min communicating with other providers regarding the patient's case:
[2024-03-24] MEDS: METOPROLOL TARTRATE 1 MG/ML VIAL IV PRN (20:20)
[2024-03-24] MEDS: PANTOprazole 40 MG in SYRINGE 0 ML IV SCH (20:25)
[2024-03-24] MEDS ORDERED: APIXABAN 2.5 MG TAB PO SCH (21:00)
[2024-03-25 06:59] LABS: Basophils # (auto) 0.01 K/uL (0.00-0.20); Basophils % (auto) 0.1 %; Eosinophils # (auto) 0.21 K/uL (0.00-0.50); Eosinophils % (auto) 1.8 %; Hematocrit (blood only) 32.2 % (42.0-52.0); Hemoglobin 10.6 g/dl (14.0-18.0); Immature Granulocytes # (auto) 0.13 K/uL (0.01-0.20); Immature Granulocytes % (auto) 1.1 %; Lymphocytes # (auto) 1.41 K/uL (1.20-3.40); Lymphocytes % (auto) 12.4 %; Mean Corpuscular Hemoglobin 33.9 pg (25.0-34.0); Mean Corpuscular Hgb Conc 32.9 g/dL (32.0-36.0); Mean Corpuscular Volume 102.9 fL (80.0-100.0); Mean Platelet Volume 9.9 fL (9.4-12.4); Monocytes # (auto) 0.94 K/uL (0.11-0.59); Monocytes % (auto) 8.3 %; Neutrophils # (auto) 8.69 K/uL (1.40-6.50); Neutrophils % (auto) 76.3 %; Platelet Count 300 K/uL (130-400); RDW Coefficient of Variation 14.8 % (11.5-14.5); RDW Standard Deviation 55.1 fL (36.4-46.3); Red Blood Count 3.13 M/uL (4.70-6.10); White Blood Count 11.39 K/ul (4.8-10.8)
[2024-03-25 07:14] LABS: Calcium 7.7 mg/dl (8.6-10.3); Creatinine Clr Calc Pharmacy 28.6 ml/min; Est GFR (African American) 37.9 ml/min; Est GFR (Non-African American) 32.7 ml/min; Magnesium 2.5 mg/dl (1.7-2.4); Phosphorus 4.1 mg/dl (2.5-4.9); Potassium 4.6 mmol/L (3.5-5.1)
[2024-03-25] MEDS ORDERED: GLYCOPYRROLATE 0.2 MG/ML VIAL IV PRN (12:16)
[2024-03-25] MEDS ORDERED: LORazepam 1 MG in SYRINGE 0.25 ML IV PRN (12:16)
[2024-03-25] MEDS ORDERED: MoRPHine SULFATE 2 MG/ML CARP IV PRN (12:20)
--- NOTE | 2024-03-25 12:36 | Palliative Care Progress Note ---
Date of Service March 25, 2024 Assessment & Plan (1) Dyspnea and respiratory abnormalities: Plan: multifocal PNA on high flow, unable to tolerated weaning Elected to move to PROCESSING ANALYST, see ACP discussion below Prn MS IV ordered along with Atmichael and rossy for sx mgt needs (2) Weakness generalized: (3) Advanced care planning/counseling discussion: Plan: 25min face to face ACP meeting with pt, , son and grandson along with Dr Anaya. We discussed his progressive resp failure, HFNC need and overall concerns for aspiration He is firm on not wanting feeding tube, any life support or aggressive interventions He is equally firm on desiring PO for comfort and pleasure, he tells me he understands he may aspirate but that he would rather happy with a cold Coke in his hand than dying of thirst and feeling he is just dragging out his suffering. he notes the decline and overall progression of illness he is enduring is 'no way to live a life, I love being able to get up and go, do things and get out to see people, that's what I like doing. This si no way to live. or ." His is in agreement, son and grandson also agree but asking about HFNC de escalation. Advised we would not de escalate HFNC until he has acute persistent decline, worsening MS and is transitioning to end of life state. At that junction the HFNC will not give comfort but would serve to prolong ding so de escalation is reasonable. Patient and family in agreement with plan.PROCESSING ANALYST orders written. Plan of care reviewed in detail with primary team, nursing and RT. Please do not de escalate the HFNC until he is in a clear end of life transitioning state: the goal for now is comfort, let him optimize time with family alen while awake/alert and allow him to enjoy PO as desired for his pleasure and comfort. (4) Palliative care by specialist: (5) Multifocal pneumonia: (6) Acute hypoxic respiratory failure: (7) Severe sepsis: (8) LASHON (acute kidney injury): Plan As above. Thank you for allowing us to participate in the ongoing care of this patient. Please page with any additional concerns. Norma Hein DNP Director, Palliative Medicine Admission and Anticipated Discharge Date Admission Date: March 11, 2024 Hector Lee is wide awake and alert this morning, able to follow commands and is sitting up in bed, speaking with family: , son and grandson Jesus states he does not want to be NPO or have food/drink withheld. He is aware of aspiration concerns and remains firm he does not want feeding tubes or machines of any sort. He states "I would rather drink some ice cold Coke and tonight a happy man than live this way with a dry burning mouth and feel like I'm just suffering." Review of Systems Review of Systems: All systems reviewed & are unremarkable except as noted in Subjective Physical Exam Physical Exam: bitemp wasting perrla, eomi's intermittent dry hacking cough awake, alert and oriented x3 neck supple, no stridor increased resp effort with prolonged discussion but appears comfortable at rest scatt rhonchi, no wheezing s1s2, no gross JVD abd NTP overall mild weakness but BUE strength/operations developer intact skin pale, cool, scattered ecchymoses, no gross cyanosis Results & Data Vital Signs (Past 12 Hours) Vital Signs Temp Pulse Pulse Resp BP BP Pulse Ox 03/25/24 12:16 89 22 03/25/24 10:49 36.6 C 109 H 18 146/75 H 99 03/25/24 08:00 03/25/24 07:16 36.6 C 82 18 151/83 H 96 03/25/24 07:08 82 20 96 03/25/24 06:32 85 03/25/24 06:17 98 H 128/73 03/25/24 02:38 36.6 C 91 H 18 128/73 98 03/25/24 02:00 109 H 22 93 O2 Del Method O2 Flow Rate FiO2 03/25/24 12:16 High Flow Nasal Cannula 55 80 03/25/24 10:49 Room Air 03/25/24 08:00 High Flow Nasal Cannula 55 80 03/25/24 07:16 CPAP 03/25/24 07:08 High Flow Nasal Cannula 55 80 03/25/24 06:32 03/25/24 06:17 03/25/24 02:38 High Flow Nasal Cannula 03/25/24 02:00 High Flow Nasal Cannula 55 80 Laboratory Results Abnormal lab results 03/25/24 Range/Units 06:06 WBC 11.39 H (4.8-10.8) K/ul RBC 3.13 L (4.70-6.10) M/uL Hgb 10.6 L (14.0-18.0) g/dl Hct 32.2 L (42.0-52.0) % MCV 102.9 H (80.0-100.0) fL RDW Std Deviation 55.1 H (36.4-46.3) fL RDW Coeff of Karl 14.8 H (11.5-14.5) % Neut # (Auto) 8.69 H (1.40-6.50) K/uL [place] # (Auto) 0.94 H (0.11-0.59) K/uL Chloride 111 H (98-107) mmol/L BUN 51 H (6-23) mg/dl Creatinine 1.82 H (0.6-1.4) mg/dl BUN/Creatinine Ratio 28.0 H (10-20) Calcium 7.7 L (8.6-10.3) mg/dl Magnesium 2.5 H (1.7-2.4) mg/dl Diagnostic Findings Chest CT 03/11/24 23:11 Exam(s): CT CHEST Without Contrast EXAM: CT Chest Without Intravenous Contrast CLINICAL HISTORY: Reason for exam: sob, cough. TECHNIQUE: Axial computed tomography images of the chest without intravenous contrast. CTDI is 13.77 mGy and DLP is 442.69 mGy-cm. Automated exposure control was utilized for the study. A dose lowering technique was utilized adhering to the principles of ALARA. COMPARISON: No relevant prior studies available. FINDINGS: Lungs: Bilateral ground-glass attenuation, consistent with infectious or inflammatory etiology. Correlate clinically. No mass. No consolidation. Pleural space: Unremarkable. No pneumothorax. No significant effusion. Heart: Unremarkable. No cardiomegaly. No significant pericardial effusion. No significant coronary artery calcifications. Bones/joints: Degenerative changes of the spine. No acute fracture. No dislocation. Soft tissues: Unremarkable. Vasculature: Atherosclerotic changes of the aorta. No thoracic aortic aneurysm. Lymph nodes: Unremarkable. No enlarged lymph nodes. IMPRESSION: Bilateral ground-glass attenuation, consistent with infectious or inflammatory etiology. Correlate clinically. Electronically signed by: Ruiz Sinha MD 03/12/24 03:[address] 03/15/24 18:22 CT cervical spine wo con CLINICAL HISTORY: R/O Fracture TECHNIQUE: Multidetector row helical CT of the cervical spine was performed without administration of intravenous contrast. Coronal and sagittal reformations were obtained. Automated dose lowering techniques and/or adjustment according to patient size were utilized for this exam. Comparison: None available at the time of this dictation. FINDINGS: No acute fractures or subluxations are identified. Degenerative changes are seen in the visualized spine. The alignment is normal. Opacities are seen in the bilateral lung. IMPRESSION: Degenerative changes without evidence of acute bony injury. ACT 112: Negative or not required by law. Electronically signed by: Jose Robertson M.D. 03/15/2024 6:[address] 03/15/24 18:22 CT head/brain wo con CLINICAL HISTORY: R/O bleed Technique: Contiguous axial CT images of the head were acquired from the base of the skull to the vertex without intravenous contrast administration. Images were viewed in brain, subdural and bone windows. Automated dose lowering techniques and/or adjustment according to patient size were utilized for this exam. Comparison: None available at the time of this dictation. Findings: Areas of decreased attenuation are present in the periventricular and sub cortical white matter bilaterally consistent with small vessel ischemic disease. Generalized cerebral atrophy with commensurate enlargement of the ventricles, sulci, and cisterns is also present. There is no acute intracranial hemorrhage or evidence of acute territorial infarction. No shift of the midline structures, mass effect, or extra-axial abnormalities are shown. Atherosclerotic calcifications are present in the intracranial segments of the internal carotid arteries. Imaged portions of the paranasal sinuses and mastoid air cells are clear. The orbits appear normal. There are no acute fractures of the calvaria or scalp swelling. Impression: No acute intracranial hemorrhage, no evidence of acute territorial infarction or other acute intracranial disease process. ACT 112: Negative or not required by law. Electronically signed by: Jose Robertson M.D. 03/15/2024 6:46 PM Venous Doppler Study 03/16/24 11:48 BILATERAL LOWER EXTREMITY VENOUS DOPPLER HISTORY: Shortness of breath. Rule out DVT COMPARISON STUDY: None. FINDINGS: There is normal compressibility, flow, and augmentation within the bilateral lower extremity deep venous systems. IMPRESSION: No DVT within the right or left lower extremity. ACT 112: Negative or not required by law. Electronically signed by: Luke Shepard M.D. 03/16/2024 2:08 PM Chest X-Ray 03/22/24 07:00 XR chest 1V portable HISTORY: Respiratory distress. COMPARISON: Chest 03/21/2024. FINDINGS: The heart is enlarged. There is pulmonary vascular congestion. Multifocal airspace consolidation is again seen throughout both lungs. This is similar to yesterday. Small pleural effusions are noted. No pneumothorax is seen. The skeletal structures are osteopenic. The bony thorax is grossly intact. IMPRESSION: 1. Cardiomegaly with pulmonary vascular congestion. 2. Multifocal airspace consolidation has not significantly changed from yesterday. 3. Small pleural effusions. ACT 112: Negative or not required by law. Electronically signed by: Luke Shepard M.D. 03/22/2024 8:39 AM PG Care Time/CCT Total # of Minutes Spent Total Time Spent with Patient: Total time spent is greater than 50% in coordination of care (as documented) at patient's floor/unit and/or counseling patient: I spent 85 minutes overall addressing this case: 10 min in medical data review/discussion with referring provider(s) and/or preparation for the visit 15 min in direct interaction with the patient/exam 25 min in Advance Care Planning/Goals of Care discussions as detailed above in note (must be >16min) 15 min in subsequent review and synthesis of assessment and plan 20 min communicating with other providers regarding the patient's case: primary, resp therapy, nursing Advanced Care Planning 51691 Advanced Care Planning 30 Min [place] [address] SUB INP/OBS CARE 3/50MIN (25 - SIGNIFICANT, SEPARATELY IDENTIFIABLE ) Patient Type Established Medical Decision Making High Complexity Diagnoses Dyspnea and respiratory abnormalities R06.00; R06.89 Weakness generalized R53.1 Advanced care planning/counseling discussion Z71.89 Palliative care by specialist Z51.5 Multifocal pneumonia J18.9 Acute hypoxic respiratory failure J96.01 Severe sepsis A41.9; R65.20 LASHON (acute kidney injury) N17.9 Additional Codes Advanced Care Planning - 53862 Advanced Care Planning 30 Min: 35142 Advanced Care Planning 30 Min ([id number])
[2024-03-25] MEDS ORDERED: SODIUM CHLORIDE 0.65% NA SOLN 45 ML (OCEAN) PRN (13:32)
--- NOTE | 2024-03-25 15:06 | Hospitalist Progress Note ---
Date of Service March 25, 2024 Assessment & Plan (1) Acute hypoxic respiratory failure: Plan: Patient is an 88-year-old gentleman with acute hypoxic respiratory failure in the setting of multifocal pneumonia. presented with sepsis secondary to multifocal pneumonia and Complicated by silent and recurrent aspiration finished the course of antibiotic and the condition has not improved has been requiring high flow oxygen to maintain saturation appreciate palliative care input and recommendation has had speech evaluation and recommended minced and moist food and thin liquid with aspiration precaution he does not want to have any other means of nutrition he clearly expressed his end-of-life care in presence of the family members and everyone is agreeable to permissive feeding after long discussion with the family members and the patient the patient was agreeable to going towards comfort care only as needed Ativan and morphine have been initiated we will observe how he does for the next few days (2) Atrial fibrillation with rapid ventricular response: Plan: Start metoprolol for A-fib rate control, start Eliquis for anticoagulation. Discontinue full dose Lovenox. (3) Aspiration into airway: Plan: permissive aspiration diet recommended (4) Multifocal pneumonia: Plan: finish the course of antibiotic (5) Bibi infection, oral: (6) Delirium due to another medical condition: Plan: presented with acute delirium which has improved a lot as of today 03/15/2024 clear conversation was undertaken in presence of family members and clear understanding of the decision for comfort care from here patient remains alert and awake Plan other significant medical conditions are reasonably stable now: hypertension, stable CRI, creatinine at baseline Acute on chronic anemia, no overt bleed, FOBT done at there was negative prediabetes, hemoglobin A1c of 5.7 last January 2024 Admission and Anticipated Discharge Date Admission Date: March 11, 2024 Subjective 03/25/2024 The patient was seen and examined in telemetry unit in presence of the family members He has been minimal shortness of breath at rest and has been communicating well He expressed his end-of-life care in light of current medical condition and management He wanted to have iced water to drink and make his mouth moist, does not care about any food that he wants to eat Review of Systems Review of Systems: all systems reviewed and are unremarkable except as noted below Physical Exam Physical Exam: lying in bed with minimal respiratory distress Constitutional: well developed, well nourished, + ill appearing and average body habitus Eyes: PERRL, conjunctivae normal, anicteric sclerae ENMT: external ear and nose normal, oropharynx normal Neck: trachea midline, no thyromegaly Respiratory: + respiratory distress Auscultation: + diminished lung sounds and + crackles ( coarse crackles bilaterally) Cardiovascular: Rate/Rhythm: regular rate and regular rhythm; not tachycardic Heart Sounds: normal S1 and normal S2; no murmur Extremities: + edema ( trace edema bilaterally) Gastrointestinal (Abdomen): Inspection/Auscultation: normal bowel sounds; abdomen not distended Percussion/Palpation: abdomen soft; abdomen nontender Musculoskeletal: no acute arthritis involving any of the joints Neurologic: normal touch/pain/proprioception and moves all extremities; no focal motor deficits Lymphatic: no cervical or axillary lymphadenopathy Results & Data Results & Data Vital Signs (Past 12 Hours) Vital Signs Temp Pulse Pulse Resp BP BP Pulse Ox 03/25/24 12:16 89 22 03/25/24 10:49 36.6 C 109 H 18 146/75 H 99 03/25/24 08:00 03/25/24 07:16 36.6 C 82 18 151/83 H 96 03/25/24 07:08 82 20 96 03/25/24 06:32 85 03/25/24 06:17 98 H 128/73 O2 Del Method O2 Flow Rate FiO2 03/25/24 12:16 High Flow Nasal Cannula 55 80 03/25/24 10:49 Room Air 03/25/24 08:00 High Flow Nasal Cannula 55 80 03/25/24 07:16 CPAP 03/25/24 07:08 High Flow Nasal Cannula 55 80 03/25/24 06:32 03/25/24 06:17 Laboratory Results Short CBC 03/25/24 Range/Units 06:06 WBC 11.39 H (4.8-10.8) K/ul Hgb 10.6 L (14.0-18.0) g/dl Hct 32.2 L (42.0-52.0) % Plt Count 300 (130-400) K/uL BMP 03/25/24 06:06 Sodium 144 Potassium 4.6 Chloride 111 H Carbon Dioxide 25 BUN 51 H Creatinine 1.82 H Glucose 90 Calcium 7.7 L Medications Administered Current Inpatient Medications Acetaminophen (Acetaminophen 325 Mg Tab) 650 mg PO QID PRN PRN Reason: pain/fever Stop: 04/10/24 23:15 Last Admin: 03/12/24 16:09 Dose: 650 mg Fluticasone/Vilanterol (Fluticasone/Vilanterol 100/25mcg 14 Puffs/Inhaler) 1 puffs INH DAILY ERVIN Stop: 04/11/24 13:59 Last Admin: 03/25/24 08:48 Dose: 1 puffs Glycopyrrolate (Glycopyrrolate 0.2 Mg/Ml Vial) 0.4 mg IV Q4H PRN PRN Reason: Secretions or Pulm Congestion Stop: 04/24/24 12:15 Guaifenesin (Guaifenesin Sugar Free 100 Mg/5 Ml Udc) 200 mg PO QID ERVIN Stop: 04/23/24 12:59 Last Admin: 03/25/24 13:31 Dose: 200 mg Pantoprazole Sodium 40 mg/ (Syringe) 10 mls @ 5 mls/min IV BID ERVIN Stop: 04/23/24 20:59 Last Admin: 03/25/24 08:48 Dose: 5 mls/min Sodium Chloride (Nss) 1,000 mls @ 30 mls/hr IV .Q24H ERVIN Stop: 04/23/24 14:44 Last Admin: 03/25/24 03:56 Dose: 80 mls/hr Lorazepam 1 mg/ Syringe 1 mls @ 2 mls/min IV Q4H PRN; Protocol PRN Reason: ANXIETY/AGITATION Stop: 04/24/24 12:25 Ipratropium [place] (Ipratropium [place] Neb Soln 0.02% 0.5mg/2.5ml Vial) 0.5 mg NEB QIDR ERVIN Stop: 04/23/24 08:59 Last Admin: 03/25/24 12:15 Dose: 0.5 mg Levalbuterol HCl (Levalbuterol Hcl 0.63 Mg/3 Ml Neb) 0.63 mg NEB Q4H PRN; Protocol PRN Reason: Shortness Of Breath Or Wheezin Stop: 04/14/24 15:14 Last Admin: 03/24/24 14:27 Dose: 0.63 mg Levalbuterol HCl (Levalbuterol 1.25 Mg/3 Ml Neb) 1.25 mg NEB QIDR ERVIN Stop: 04/23/24 08:59 Last Admin: 03/25/24 12:15 Dose: 1.25 mg Metoprolol Tartrate (Metoprolol Tartrate 1 Mg/Ml Vial) 7.5 mg IV Q6 [facility] Stop: 04/23/24 17:59 Last Admin: 03/25/24 13:05 Dose: Not Given Morphine Sulfate (Morphine Sulfate 2 Mg/Ml Carp) 2 mg IV Q15M PRN PRN Reason: Pain or Respiratory Distress Stop: 04/08/24 12:15 Morphine Sulfate (Morphine Sulfate 2 Mg/Ml Carp) 3 mg IV Q1H PRN PRN Reason: severe air hunger Stop: 04/05/24 13:59 Sodium Chloride (Sodium Chlor 7% 4 Ml Neb) 4 ml NEB BIDR [facility] Stop: 04/14/24 18:59 Last Admin: 03/25/24 07:07 Dose: 4 ml Sodium Chloride (Sodium Chloride 0.65% Na Soln 45 Ml ([place])) 1 sprays NA Q1H PRN PRN Reason: Dryness Stop: 04/24/24 13:31
[2024-03-25] MEDS: MoRPHine SULFATE 2 MG/ML CARP IV PRN (16:55)
[2024-03-25] MEDS: LORazepam 1 MG in SYRINGE 0.5 ML IV PRN (20:14)
--- NOTE | 2024-03-26 17:03 | Hospitalist Progress Note ---
Date of Service March 26, 2024 Assessment & Plan (1) Acute hypoxic respiratory failure: Plan: Patient is an 88-year-old gentleman with acute hypoxic respiratory failure in the setting of multifocal pneumonia. presented with sepsis secondary to multifocal pneumonia and Complicated by silent and recurrent aspiration finished the course of antibiotic and the condition has not improved has been requiring high flow oxygen to maintain saturation appreciate palliative care input and recommendation has had speech evaluation and recommended minced and moist food and thin liquid with aspiration precaution he does not want to have any other means of nutrition he clearly expressed his end-of-life care in presence of the family members and everyone is agreeable to permissive feeding after long discussion with the family members and the patient the patient was agreeable to going towards comfort care only as needed Ativan and morphine have been initiated we will observe how he does for the next few days clinically much worse today with increasing discomfort secondary to ongoing cough and shortness of breath discussed with the vaccines solutions specialist and advised to have comfort measures only from tomorrow if his condition is worsened we will continue as needed medications with morphine and Ativan for now (2) Atrial fibrillation with rapid ventricular response: Plan: Start metoprolol for A-fib rate control, start Eliquis for anticoagulation. Discontinue full dose Lovenox. rate seems to be high (3) Aspiration into airway: Plan: permissive aspiration diet recommended (4) Multifocal pneumonia: Plan: finish the course of antibiotic (5) Bibi infection, oral: (6) Delirium due to another medical condition: Plan: presented with acute delirium which has improved a lot as of today 03/15/2024 clear conversation was undertaken in presence of family members and clear understanding of the decision for comfort care from here patient remains alert and awake Plan other significant medical conditions are reasonably stable now: hypertension, stable CRI, creatinine at baseline Acute on chronic anemia, no overt bleed, FOBT done at there was negative prediabetes, hemoglobin A1c of 5.7 last January 2024 Admission and Anticipated Discharge Date Admission Date: March 11, 2024 Subjective 03/25/2024 The patient was seen and examined in telemetry unit in presence of the family members He has been minimal shortness of breath at rest and has been communicating well He expressed his end-of-life care in light of current medical condition and management He wanted to have iced water to drink and make his mouth moist, does not care about any food that he wants to eat 03/26/2024 the patient was seen and examined in telemetry unit in presence of the family members his condition is worse today complains to aspiration with ongoing cough and shortness of breath with any attempt to swallow the family members and the patient wants to have comfort care only for him Review of Systems Review of Systems: all systems reviewed and are unremarkable except as noted below Physical Exam Physical Exam: lying in bed with minimal respiratory distress Constitutional: well developed, well nourished, + ill appearing and average body habitus Eyes: PERRL, conjunctivae normal, anicteric sclerae ENMT: external ear and nose normal, oropharynx normal Neck: trachea midline, no thyromegaly Respiratory: + respiratory distress Auscultation: + diminished lung sounds and + crackles ( coarse crackles bilaterally) Cardiovascular: Rate/Rhythm: regular rate and regular rhythm; not tachycardic Heart Sounds: normal S1 and normal S2; no murmur Extremities: + edema ( trace edema bilaterally) Gastrointestinal (Abdomen): Inspection/Auscultation: normal bowel sounds; abdomen not distended Percussion/Palpation: abdomen soft; abdomen nontender Neurologic: normal touch/pain/proprioception and moves all extremities; no focal motor deficits Lymphatic: no cervical or axillary lymphadenopathy Results & Data Results & Data Vital Signs (Past 12 Hours) Vital Signs Pulse Resp Pulse Ox O2 Del Method O2 Flow Rate FiO2 03/26/24 15:21 32 H High Flow Nasal Cannula 55 80 03/26/24 11:13 138 H 20 91 High Flow Nasal Cannula 55 80 03/26/24 07:49 20 90 High Flow Nasal Cannula 55 80 03/26/24 07:37 High Flow Nasal Cannula 55 Medications Administered Current Inpatient Medications Acetaminophen (Acetaminophen 325 Mg Tab) 650 mg PO QID PRN PRN Reason: pain/fever Stop: 04/10/24 23:15 Last Admin: 03/12/24 16:09 Dose: 650 mg Fluticasone/Vilanterol (Fluticasone/Vilanterol 100/25mcg 14 Puffs/Inhaler) 1 puffs INH DAILY ERVIN Stop: 04/11/24 13:59 Last Admin: 03/26/24 08:56 Dose: 1 puffs Glycopyrrolate (Glycopyrrolate 0.2 Mg/Ml Vial) 0.4 mg IV Q4H PRN PRN Reason: Secretions or Pulm Congestion Stop: 04/24/24 12:15 Guaifenesin (Guaifenesin Sugar Free 100 Mg/5 Ml Udc) 200 mg PO QID ERVIN Stop: 04/23/24 12:59 Last Admin: 03/26/24 16:44 Dose: Not Given Pantoprazole Sodium 40 mg/ (Syringe) 10 mls @ 5 mls/min IV BID ERVIN Stop: 04/23/24 20:59 Last Admin: 03/26/24 08:56 Dose: 5 mls/min Lorazepam 1 mg/ Syringe 1 mls @ 2 mls/min IV Q4H PRN; Protocol PRN Reason: ANXIETY/AGITATION Stop: 04/24/24 12:25 Last Admin: 03/26/24 11:17 Dose: 2 mls/min Levalbuterol HCl (Levalbuterol Hcl 0.63 Mg/3 Ml Neb) 0.63 mg NEB Q4H PRN; Protocol PRN Reason: Shortness Of Breath Or Wheezin Stop: 04/14/24 15:14 Last Admin: 03/24/24 14:27 Dose: 0.63 mg Morphine Sulfate (Morphine Sulfate 2 Mg/Ml Carp) 2 mg IV Q15M PRN PRN Reason: Pain or Respiratory Distress Stop: 04/08/24 12:15 Last Admin: 03/26/24 15:44 Dose: 2 mg Morphine Sulfate (Morphine Sulfate 2 Mg/Ml Carp) 3 mg IV Q1H PRN PRN Reason: severe air hunger Stop: 04/05/24 13:59 Sodium Chloride (Sodium Chloride 0.65% Na Soln 45 Ml ([place])) 1 sprays NA Q1H PRN PRN Reason: Dryness Stop: 04/24/24 13:31
[2024-03-26] MEDS ORDERED: MoRPHine SULFATE 2 MG/ML CARP IV PRN (17:37)
--- NOTE | 2024-03-26 17:47 | Palliative Care Progress Note ---
Date of Service March 26, 2024 Assessment & Plan (1) Dyspnea and respiratory abnormalities: Plan: multifocal PNA on high flow, unable to tolerated weaning Elected to move to [employer], see ACP discussion yesterday. PRN MS IV ordered along with Ativan and robinul for sx mgt needs (2) Weakness generalized: (3) Advanced care planning/counseling discussion: Plan: Spoke with and grandson at bedside x 20 min face to face Goal is comfort hopes he may wake up and be a little interactive with her She feels the morphine helped calm/settle him down but it also hinders him communicating with her We agreed to see how he does overnight. If no improvement will de escalate HF as symptoms allow Please do NOT increase high flow any further, the goal is comfort and relief of air hunger/distress with opioids for comfort. (4) Palliative care by specialist: (5) Multifocal pneumonia: (6) Acute hypoxic respiratory failure: (7) Severe sepsis: (8) LASHON (acute kidney injury): Plan As above. Thank you for allowing us to participate in the ongoing care of this patient. Please page with any additional concerns. Norma Hein DNP Director, Palliative Medicine Admission and Anticipated Discharge Date Admission Date: March 11, 2024 Subjective Declining mental status, increased resp effort. Has needed a few doses of prn opioids High flow remains in place at 55lpm/80% FiO2 and grandson at bedside reports he has been less interactive for past few hours and grandson felt he was more confused as the day went on At time of my visit he is asleep and not arousable but will grimace at times, increased resp effort noted Review of Systems Review of Systems: Unobtainable due to reduced consciousness Physical Exam Physical Exam: bitemp wasting perrla, eomi's intermittent dry hacking cough does not wake to voice, grimacing at times neck supple, no stridor increased resp effort; +audible rhonchi no JVD abd soft skin pale, cool, scattered ecchymoses, no gross cyanosis Results & Data Vital Signs (Past 12 Hours) Vital Signs Pulse Resp Pulse Ox O2 Del Method O2 Flow Rate FiO2 03/26/24 15:21 32 H High Flow Nasal Cannula 55 80 03/26/24 11:13 138 H 20 91 High Flow Nasal Cannula 55 80 03/26/24 07:49 20 90 High Flow Nasal Cannula 55 80 03/26/24 07:37 High Flow Nasal Cannula 55 PG Care Time/CCT Total # of Minutes Spent Total Time Spent with Patient: Total time spent is greater than 50% in coordination of care (as documented) at patient's floor/unit and/or counseling patient: I spent 60 minutes overall addressing this case: 15 min in medical data review/discussion with referring provider(s) and/or preparation for the visit 10 min in direct interaction with the patient/exam 20 min in Advance Care Planning/Goals of Care discussions as detailed above in note (must be >16min) 5 min in subsequent review and synthesis of assessment and plan 10 min communicating with other providers regarding the patient's case: primary team Advanced Care Planning 81354 Advanced Care Planning 30 Min [place] [address] SUB INP/OBS CARE 2/35MIN (25 - SIGNIFICANT, SEPARATELY IDENTIFIABLE ) Patient Type Established Medical Decision Making High Complexity Diagnoses Dyspnea and respiratory abnormalities R06.00; R06.89 Weakness generalized R53.1 Advanced care planning/counseling discussion Z71.89 Palliative care by specialist Z51.5 Multifocal pneumonia J18.9 Acute hypoxic respiratory failure J96.01 Severe sepsis A41.9; R65.20 LASHON (acute kidney injury) N17.9 Additional Codes Advanced Care Planning - 21582 Advanced Care Planning 30 Min: 89499 Advanced Care Planning 30 Min ([id number])
[2024-03-26] MEDS: MoRPHine SULFATE 2 MG/ML CARP IV PRN (18:58)
[2024-03-27] MEDS: SODIUM CHLORIDE IV SCH (14:15)
[2024-03-27] MEDS: MORPHINE IV SCH (14:15)
[2024-03-27] MEDS ORDERED: GLYCOPYRROLATE 0.2 MG/ML VIAL IV PRN ×2 (14:40→14:42)
--- NOTE | 2024-03-27 15:05 | Hospitalist Progress Note ---
Date of Service March 27, 2024 Assessment & Plan (1) Acute hypoxic respiratory failure: Plan: Patient is an 88-year-old gentleman with acute hypoxic respiratory failure in the setting of multifocal pneumonia. presented with sepsis secondary to multifocal pneumonia and Complicated by silent and recurrent aspiration finished the course of antibiotic and the condition has not improved has been requiring high flow oxygen to maintain saturation appreciate palliative care input and recommendation has had speech evaluation and recommended minced and moist food and thin liquid with aspiration precaution he does not want to have any other means of nutrition he clearly expressed his end-of-life care in presence of the family members and everyone is agreeable to permissive feeding after long discussion with the family members and the patient the patient was agreeable to going towards comfort care only as needed Ativan and morphine have been initiated we will observe how he does for the next few days clinically much worse today with increasing discomfort secondary to ongoing cough and shortness of breath discussed with the charge master specialist and advised to have comfort measures only from tomorrow if his condition is worsened we will continue as needed medications with morphine and Ativan for now Condition has deteriorated Wan evaluated by the Palliative care and made him comfort care only status Has been put on Morphine drip Will continue current comfort care medications as advised (2) Atrial fibrillation with rapid ventricular response: Plan: Start metoprolol for A-fib rate control, start Eliquis for anticoagulation. Discontinue full dose Lovenox. rate seems to be high (3) Aspiration into airway: Plan: permissive aspiration diet recommended (4) Multifocal pneumonia: Plan: finish the course of antibiotic (5) Bibi infection, oral: (6) Delirium due to another medical condition: Plan: presented with acute delirium which has improved a lot as of today 03/15/2024 clear conversation was undertaken in presence of family members and clear understanding of the decision for comfort care from here patient remains alert and awake Plan other significant medical conditions are reasonably stable now: hypertension, stable CRI, creatinine at baseline Acute on chronic anemia, no overt bleed, FOBT done at there was negative prediabetes, hemoglobin A1c of 5.7 last January 2024 Admission and Anticipated Discharge Date Admission Date: March 11, 2024 Subjective 03/25/2024 The patient was seen and examined in telemetry unit in presence of the family members He has been minimal shortness of breath at rest and has been communicating well He expressed his end-of-life care in light of current medical condition and management He wanted to have iced water to drink and make his mouth moist, does not care about any food that he wants to eat 03/26/2024 the patient was seen and examined in telemetry unit in presence of the family members his condition is worse today complains to aspiration with ongoing cough and shortness of breath with any attempt to swallow the family members and the patient wants to have comfort care only for him 03/27/2024 Patient was seen and examined In telemetry unit in presence of the family members His condition has deteriorated The family members wants him to be on Comfort care only Review of Systems Review of Systems: Unobtainable due to cognitive status Physical Exam Physical Exam: Remains unresponsive Constitutional: well developed, well nourished, + ill appearing and average body habitus Eyes: PERRL, conjunctivae normal, anicteric sclerae ENMT: external ear and nose normal, oropharynx normal Neck: trachea midline, no thyromegaly Respiratory: + respiratory distress Auscultation: + diminished lung sounds and + crackles ( coarse crackles bilaterally) Cardiovascular: Rate/Rhythm: regular rate and regular rhythm; not tachycardic Heart Sounds: normal S1 and normal S2; no murmur Extremities: + edema ( trace edema bilaterally) Gastrointestinal (Abdomen): Inspection/Auscultation: normal bowel sounds; abdomen not distended Percussion/Palpation: abdomen soft; abdomen nontender Neurologic: normal touch/pain/proprioception and moves all extremities; no focal motor deficits Lymphatic: no cervical or axillary lymphadenopathy Results & Data Results & Data Vital Signs (Past 12 Hours) Vital Signs Pulse Ox O2 Del Method O2 Flow Rate 03/27/24 14:45 60 L High Flow Nasal Cannula 55
[2024-03-27] MEDS: MoRPHine SULF/NSS 1MG/ML 100MG/100ML IV ONE (16:30)
[2024-03-27] MEDS: LORazepam 1 MG in SYRINGE 0.5 ML IV PRN ×2 (19:21→21:59)
[2024-03-27] MEDS: MoRPHine SULFATE 2 MG/ML CARP IV PRN (20:33)
[2024-03-27] MEDS: MoRPHine SULFATE 2 MG/ML CARP IV STA (21:03)
--- NOTE | 2024-03-28 00:57 | Death Pronouncement Note ---
Date of Service March 28, 2024 Pronouncement Note Admission Date Admission Date: March 11, 2024 Date and Time of Date of : 03/28/24 Time of : 00:37 Contributing Factors (1) Acute hypoxic respiratory failure: (2) Atrial fibrillation with rapid ventricular response: (3) Aspiration into airway: (4) Multifocal pneumonia: (5) Bibi infection, oral: (6) Delirium due to another medical condition: Additional Data Confirmation of : no pulse, no respirations, no heart sounds and pupils fixed and dilated Family: contacted Attending physician: Sharla Anaya MD
--- NOTE | 2024-03-28 17:46 | Discharge Summary ---
Date of Service March 28, 2024 Admission HPI Per Admitting Provider History obtained from patient, family, and records. Medical history significant for hypertension, CRI (baseline creatinine 1.8), chronic anemia (baseline hemoglobin of 12), prediabetes, BPH, skin cancer as per records. 2 weeks ago, patient noted cough symptoms productive of white sputum worse on lying down. Denies choking symptoms. Not sure about sick contacts. No chest pain. 2 urgent care visits in the last 2 weeks. No pneumonia on x-ray as per patient. Outpatient COVID-19 test was negative. Patient prescribed prednisone course and inhaler on 2 separate occasions. Worsening symptoms despite compliance with new medications. No fluid retention. Denies abdominal pain, black/bloody stools, hematuria. Patient brought to ER by son visiting from [place], [place] for evaluation. O2 sats 80s upon arrival at the ER. Ceftriaxone and doxycycline administered at the ER. 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 Admission Exam Per Admitting Provider Physical Exam: GENERAL: Comfortable, pleasant, slightly hard of hearing, no respiratory distress SKIN: Pallor, warm HEENT: Alopecia, pale palpebral conjunctivae, no ptosis, dry buccal mucosa, nasal cannula in place NECK : Supple, no tenderness CHEST : Decreased breath sounds, no tenderness HEART : RRR, no obvious murmurs ABDOMEN: Some distention, nontender RECTAL : Intact sphincter, brown stool (FOBT negative) EXTREMITIES : No LE swelling/tenderness, no other conspicuous deformities noted NEUROLOGIC : Coherent, no facial asymmetry, slightly hard of hearing, no other gross focality Principal Diagnosis The patient on 03/28/2024 at 0037 hrs. The causes of ; Acute hypoxic respiratory failure Atrial fibrillation with rapid ventricular response Aspiration to be airways Multifocal pneumonia Discharge Data Allergies Allergy/AdvReac Type Severity Reaction Status Date / Time No Known Allergies Allergy Unknown Verified 03/11/24 21:46 Consultations 03/11/24 21:40 ED Decision to Admit Stat 03/13/24 07:44 Consult Pulmonology Routine 03/23/24 09:02 Consult Palliative Care Routine Ordered Studies 03/11/24 23:11 CT chest diagnostic wo con Stat 03/15/24 18:22 CT Brain [CT head/brain wo con] Stat CT cervical spine wo con Stat 03/16/24 11:48 US venous doppler LE FINN Routine Hospital Course (1) Acute hypoxic respiratory failure: Patient is an 88-year-old gentleman with acute hypoxic respiratory failure in the setting of multifocal pneumonia. presented with sepsis secondary to multifocal pneumonia and Complicated by silent and recurrent aspiration finished the course of antibiotic and the condition has not improved has been requiring high flow oxygen to maintain saturation appreciate palliative care input and recommendation has had speech evaluation and recommended minced and moist food and thin liquid with aspiration precaution he does not want to have any other means of nutrition he clearly expressed his end-of-life care in presence of the family members and everyone is agreeable to permissive feeding after long discussion with the family members and the patient the patient was agreeable to going towards comfort care only as needed Ativan and morphine have been initiated we will observe how he does for the next few days clinically much worse today with increasing discomfort secondary to ongoing cough and shortness of breath discussed with the interior specialist and advised to have comfort measures only from tomorrow if his condition is worsened we will continue as needed medications with morphine and Ativan for now Condition has deteriorated Wan evaluated by the Palliative care and made him comfort care only status Has been put on Morphine drip Will continue current comfort care medications as advised (2) Atrial fibrillation with rapid ventricular response: Start metoprolol for A-fib rate control, start Eliquis for anticoagulation. Discontinue full dose Lovenox. rate seems to be high (3) Aspiration into airway: permissive aspiration diet recommended (4) Multifocal pneumonia: finish the course of antibiotic (5) Bibi infection, oral: (6) Delirium due to another medical condition: presented with acute delirium which has improved a lot as of today 03/15/2024 clear conversation was undertaken in presence of family members and clear understanding of the decision for comfort care from here patient remains alert and awake Plan other significant medical conditions are reasonably stable now: hypertension, stable CRI, creatinine at baseline Acute on chronic anemia, no overt bleed, FOBT done at there was negative prediabetes, hemoglobin A1c of 5.7 last January 2024 Total Time Total Time Spent Total Time Spent (In Minutes): 20 minutes Discharge Plan Discharge Items Patient Disposition: Other Date/Time: 03/28/24 00:37
== END 2024-03-28 02:00 | disposition expired | DRG 871 ==
LOC: ED 16:58 → SUATTDRO 23:14 → 2N 23:14 → 2S 03-15 17:41